=== PATIENT | male | born 1975 | race Caucasian/White ===

== ENCOUNTER 2018-11-15 08:27 | Outpatient (CLI) | payer BC, SELFPAY ==
--- NOTE | 2018-11-15 08:22 | DI.RAD_ITS ---
SYMPTOM/DIAGNOSIS: LT KNEE PAIN, H/O RT ELBOW INJURY, LT ELBOW PAIN LEFT ELBOW: Three views. No acute or healing fracture is identified. There is an enthesophyte at the olecranon. Soft tissues are unremarkable. IMPRESSION: No acute abnormality. RIGHT ELBOW: Three views. No bone or joint abnormality is identified. The soft tissues are unremarkable. IMPRESSION: No acute abnormality. LEFT KNEE: Three views. No priors. There is mild periarticular spurring in the medial femoral tibial joint space. The joint spaces are otherwise well maintained. The bones are intact and normally mineralized. IMPRESSION: Minimal degenerative changes of the left knee.
== END 2018-11-15 08:47 ==
PROVIDERS: PCP Family Medicine; Visit Provider Student in an Organized Health Care Education/Training Program
DX: M25.522 Pain in left elbow (principal); S59.902A Unspecified injury of left elbow, initial encounter; M25.562 Pain in left knee; M17.12 Unilateral primary osteoarthritis, left knee
CPT/HCPCS: 73562; 73080

== ENCOUNTER 2019-04-01 12:49 | Outpatient (REF) | payer BC, SELFPAY ==
[2019-04-01 22:22] LABS: Abs Immature Grans 0.02 k/cumm (0.0-0.09); Absolute Basophil Count 0.03 k/cumm (0.0-0.2); Absolute Eosinophil Count 0.08 k/cumm (0.0-0.7); Absolute Lymphocyte Count 2.25 k/cumm (1.2-3.4); Absolute Monocyte Count 0.54 k/cumm (0.11-0.7); Absolute Neutrophil Count 4.18 k/cumm (1.2-6.7); Basophils % 0.4; Eosinophils % 1.1; HCT 47.3 % (40.0-50.0); HGB 15.8 g/dL (13.5-17.5); Immature Grans % 0.3; Lymphocytes % 31.7; Mean Corp. HGB Concentration 33.4 g/dL (32.0-36.0); Mean Corpuscular Volume 89.8 fL (80-95); Mean Platelet Volume 10.9 fL (8.0-11.0); Monocytes % 7.6; Neutrophils % 58.9; Platelet Count 231 x1000/uL (130-400); RBC 5.27 m/cumm (4.50-6.00); RBC Distribution Width 12.8 % (11.8-14.1)
[2019-04-01 22:36] LABS: ALT 39 U/L (12-78); AST 18 U/L (15-37); Albumin 4.4 g/dL (3.4-5.0); Alkaline Phosphatase 68 U/L (46-116); Anion Gap 9.4 mmol/L (3-11); BUN 17 mg/dL (7-18); CO2 29.6 mmol/L (21.0-32.0); CREATININE 0.89 mg/dL (0.70-1.30); Chloride 103 mmol/L (98-107); Glucose 97 mg/dL (70-100); Potassium 5.2 mmol/L (3.5-5.1); Sodium 142 mmol/L (136-145); Total Protein 7.5 g/dL (6.4-8.2)
[2019-04-01 22:41] LABS: Calcium 9.7 mg/dL (8.5-10.1)
== END 2019-04-01 13:09 ==
LOC: NCHCN 12:49
PROVIDERS: PCP Family Medicine; Visit Provider Physician Assistant Medical
DX: R31.9 Hematuria, unspecified (principal)
CPT/HCPCS: 80053; 85025; 87086

== ENCOUNTER 2019-04-02 00:48 | Outpatient (CLI) | payer BC, SELFPAY ==
--- NOTE | 2019-04-02 13:50 | DI.CT_ITS ---
SYMPTOM/DIAGNOSIS: RLQ PIN, R10.[address] ABDOMEN AND PELVIS: CT scan of the abdomen and pelvis was performed following the uneventful administration of intravenous and oral contrast material. The visualized lung bases are clear. The liver is normal in size. There is no evidence of an hepatic mass. The portal, superior mesenteric and splenic veins are patent. The gallbladder is negative. There is no biliary ductal dilatation. The pancreas and peripancreatic soft tissues are unremarkable as are the spleen and adrenal glands. The kidneys show normal and symmetric enhancement. No evidence of a solid renal mass or obstruction is identified. The urinary bladder is unremarkable. The reproductive organs are unremarkable. The abdominal aorta is of normal caliber. No significant abdominal or pelvic adenopathy, ascites or pneumoperitoneum is present. There is a small fat containing left inguinal hernia. The bowel is unremarkable. There is a normal appendix present. Degenerative changes are seen in the spine. There is a small fat containing umbilical hernia. IMPRESSION: No acute findings to account for the patient's symptoms. No evidence of obstructive uropathy, appendicitis or CT evidence of gallbladder disease.
[2019-04-02] MEDS: Omnipaque 350 MG/ML 100 ML BTL IJ (13:51)
[2019-04-02] MEDS: Omnipaque 350 MG/ML 50 ML BTL PO (13:52)
[2019-04-02] MEDS: Breeza Beverage 473 ML BTL 950 ML PO (13:52)
[2019-04-02] MEDS: Normal Saline Flush 10 ML SYR IVP (13:53)
== END 2019-04-02 01:08 ==
PROVIDERS: PCP Family Medicine; Visit Provider Physician Assistant Medical
DX: R10.31 Right lower quadrant pain (principal); R31.9 Hematuria, unspecified; K42.9 Umbilical hernia without obstruction or gangrene; K40.90 Unilateral inguinal hernia, without obstruction or gangrene, not specified as recurrent
CPT/HCPCS: 74177; J3490; Q9967

== ENCOUNTER 2019-05-05 14:02 | Outpatient (REF) | payer BC, SELFPAY ==
[2019-05-05 21:52] LABS: C-Reactive Protein 0.38 mg/dL (0.0-0.3); Creatine Kinase 165 U/L (39-308)
[2019-05-05 22:19] LABS: ESR 7 mm/hr (0-15)
[2019-05-07 11:54] LABS: Lyme Ab w Rflx to Lyme Confirm Negative
[2019-05-07 15:10] LABS: ANA Interpretation Negative (NEGAT)
[2019-05-07 22:27] LABS: Anaplasma phagocytophilum Negative (Negative); B. miyamotoi PCR Negative (Negative); Babesia divergens/MO-1 Negative (Negative); Babesia duncani Negative (Negative); Babesia microti Negative (Negative); Ehrlichia chaffeensis Negative (Negative); Ehrlichia ewingii/canis Negative (Negative); Ehrlichia muris eauclairensis Negative (Negative)
== END 2019-05-05 14:22 ==
LOC: NCHCN 14:02
PROVIDERS: PCP Specialist/Technologist Athletic Trainer; Visit Provider Physician Assistant Medical
DX: M79.10 Myalgia, unspecified site (principal)
CPT/HCPCS: 82550; 85652; 87798; 86038; 86140; 86618

== ENCOUNTER 2019-05-23 01:35 | Outpatient (CLI) | payer BC, SELFPAY ==
--- NOTE | 2019-05-23 09:34 | DI.MRI_ITS ---
SYMPTOM/DIAGNOSIS: LT LUMBAR RADICULOPATHY, M54.16, LT LEG SYMPTOMS LUMBAR SPINE MRI: T 1, T 2 and STIR sagittal, T 1 and T 2 axial sequences were performed. The T 12 through L 1 through L 3-4 discs are normal in height and show no significant bulging. At L 4-5, there is moderate narrowing of the disc and endplate osteophytes which are asymmetric toward the left side. There are degenerative signal changes in the endplates. There are facet degenerative changes this level, left greater than right. The finding combine to produce severe left neural foraminal narrowing. There is no significant right neural foraminal narrowing or central canal stenosis. The L 5-S 1 level is unremarkable. The marrow signal and conus medullaris appear normal. The aorta is normal in diameter. The urinary bladder is noted to be distended. IMPRESSION: Degenerative changes and facet degenerative changes at L 4-5 which are asymmetric toward the left and cause left neural foraminal narrowing.
== END 2019-05-23 01:55 ==
PROVIDERS: PCP Specialist/Technologist Athletic Trainer; Visit Provider Physician Assistant Medical
DX: M54.16 Radiculopathy, lumbar region (principal); M51.16 Intervertebral disc disorders with radiculopathy, lumbar region; M47.26 Other spondylosis with radiculopathy, lumbar region
CPT/HCPCS: 72148

== ENCOUNTER 2019-07-24 01:38 | Outpatient (CLI) | payer BC, SELFPAY ==
--- NOTE | 2019-07-24 14:00 | DI.US_ITS ---
EXAM: US SCROTUM CLINICAL HISTORY: r/o mass lesion, N50.82 SCROTAL PAIN TECHNIQUE: Ultrasound performed using standard protocol. COMPARISON: No exams were available for comparison FINDINGS: The right testicle measures 4.2 x 2.2 x 4 0 cm. The left testicle measures 3.6 x 2.2 x 3.0 cm. No t esticular mass is seen. There is normal testicular blood flow. The epididymides appear normal and s ymmetric. There is no evidence of hydroceles. There are small bilateral varicoceles. IMPRESSION: Small bilateral varicoceles.
== END 2019-07-24 01:58 ==
PROVIDERS: PCP Specialist/Technologist Athletic Trainer; Visit Provider Urology
DX: N50.82 Scrotal pain (principal); I86.1 Scrotal varices; N50.89 Other specified disorders of the male genital organs
CPT/HCPCS: 76870

== ENCOUNTER 2019-08-04 09:57 | Day surgery (SDC) | payer BC, SELFPAY ==
[2019-08-04] VITALS (7 sets, daily range): BP systolic 130–151; BP diastolic 85–99; PULSE 73–82; RESP 15–18; TEMP 36.4–36.8; O2SAT 95–98
[2019-08-04] MEDS: Lactated Ringers 1,000 ML 80 ML IV ×2 (10:39→11:28)
--- NOTE | 2019-08-04 10:51 | W.PM.HP.N ---
Date of service: 08/04/19 Time of Service: 12:04 Assessment and Plan Assessment and plan (1) Bilateral varicoceles: Status: Acute Assessment and plan: We discussed the implications of varicoceles as well as treatment recommendations. While varicoceles on the left are quite common, varicoceles on the right are more unusual. We have already documented the absence of intra-abdominal and retroperitoneal pathology with her previous CT scan. Indications for treatment of varicocele include subfertility as well as chronic pain unresponsive to medical therapy. The patient has tried neuroleptic medications as well as anti-inflammatory medications with no significant improvement. I am not sure exactly how much of his pain is related to his varicoceles, but given the distribution of his pain, I think he would have some relief from treatment of the varicoceles. We discussed surgical approaches as well as interventional radiology approaches with sclerotic therapy. He is more interested in a surgical approach that could be done at our hospital locally. We will schedule the procedure as an outpatient under general anesthesia. History of Present Illness Chief complaint: Pelvic pain in male This is a 43-year-old gentleman who has been followed for bilateral groin, testicular and pelvic pain. He was identified as having a herniated disc in the lumbar region. He underwent lumbar laminectomy. Since that time, he has had persistent bilateral groin and testicular pain. The right side seems to be more involved, but the left side is bothersome as well. He notices intermittent swelling at times. He has had a normal CT scan of the abdomen and pelvis. He comes in after recent scrotal ultrasound. He has had no changes in his symptoms whatsoever. Review of systems: He has no fever or chills He has no chest pain or palpitations He has no nausea or vomiting Exam Const Other: He is in no current distress. He is cooperative. His vital signs are documented elsewhere in the chart His chest wall motion is normal. He is not short of breath at rest. He is awake and alert We reviewed his scrotal ultrasound on the PACS system. The testes themselves are normal with the right testis being larger than the left. He does have bilateral varicoceles documented radiographically NO OTHER CHANGES [facility] Family History (Updated 08/01/19 @ 12:15 by Shraddha Bailey RN) Other Cancer Diabetes Heart disease Social History Smoking/Tobacco Use Status: Never Drug use: Never Substance use type: does not use Current gender identity: male Do you feel safe at home: Yes Do you feel safe in your relationship?: Yes Meds Home Medications and Allergies Home Medications Medication Instructions Recorded Confirmed Type lisinopril 10 mg tablet 10 mg PO DAILY 04/08/19 08/04/19 History gabapentin 300 mg capsule 300 mg PO TID #90 cap 07/22/19 08/04/19 Rx Allergies Allergy/AdvReac Type Severity Reaction Status Date / Time No Known Allergies Allergy Verified 08/04/19 10:24 Exam Resp Effort & Inspection: normal respiratory effort Auscultation: clear to auscultation bilaterally Cardio Rate: regular rate Rhythm: regular rhythm Results Last Vital Signs Temp 36.5 C 08/04/19 10:10 Pulse 80 08/04/19 10:10 Resp 18 08/04/19 10:10 BP 136/85 08/04/19 10:10 Pulse Ox 97 08/04/19 10:10
[2019-08-04] MEDS: ceFAZolin 2 GM/50 ML BAG IVPB (12:35)
[2019-08-04] MEDS: Bupivacaine 0.25% Pres-Free 30 ML VIAL (12:58)
--- NOTE | 2019-08-04 13:50 | W.PM.DSUDISC ---
Discharge Plan Disposition Patient Disposition: HOME Condition: Stable Discharge Details Attending Provider: Eddie Montes De Oca Primary Care Provider: Jose Francisco Rice Home Meds and New Rx's Prescriptions: New hydrocodone-acetaminophen 5-325 mg tablet 1 - 2 tab PO Q6H PRN (Reason: pain) Qty: 30 RF: 0 No Action lisinopril 10 mg tablet 10 mg PO DAILY RF: 0 gabapentin 300 mg capsule 300 mg PO TID Qty: 90 RF: 0 Discharge Instructions Additional Instructions: Ice pack to scrotum while awake for next 48 hours F/U visit 1 to 2 weeks Activity:: no lifting over 10 to 20 pounds for 2 weeks Shower/Bathe:: 24 hours Diet:: As Tolerated Discharge Orders Discharge Orders: Discharge Order (Routine); Ordered 08/04/19 Ordered By: Eddie Montes De Oca DS: Diagnosis Discharge Diagnosis (1) Bilateral varicoceles: Status: Acute
[2019-08-04] MEDS: fentaNYL 100 MCG/2 ML VIAL IVP ×2 (14:00→14:15)
--- NOTE | 2019-08-04 14:54 | ROE_ITS ---
DATE OF PROCEDURE: August 04, 2019 PREOPERATIVE DIAGNOSIS: Bilateral varicoceles. 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 PROCEDURE: Bilateral varicocelectomies; excision of lipoma of the left spermatic cord. SURGEON: Eddie Montes De Oca M.D. ANESTHESIA: General. COMPLICATIONS: None. ESTIMATED BLOOD LOSS: < 100 cc's HISTORY: This is a 43-year-old gentleman who has a history of bilateral scrotal pain. On examination no specific abnormalities were identified. On ultrasound bilateral varicoceles were seen, with the right side being larger than the left. Because of his symptoms he presents for varicocelectomy. OPERATIVE REPORT: The patient was brought to the Operating Room on 08/04/19. After successful induction of general anesthesia, he was placed in the supine position. His genitalia and low abdomen were prepped and draped sterilely. A left inguinal incision was made and extended down through the subcutaneous fat until the aponeurosis of the external oblique was identified. The internal ring was identified and the spermatic cord was secured at that location. The vas deferens was isolated and swept away from the remainder of the cord structures. We then skeletonized the cord and identified multiple spermatic veins. The veins on the left side were not overly dilated, but there was a rather large lipoma of the spermatic cord. The lipoma was excised and the edges of the lipoma were over-sewn with #3-0 silk suture. The dissection was performed with loupe magnification. At the completion of the vein ligation, the testis appeared viable. The aponeurosis of the external oblique was then reapproximated with #3-0 Vicryl suture. The skin was closed with subcuticular #4-0 Vicryl. The same procedure was then performed on the patient's right side. On the right there was no evidence of a lipoma of the cord. The veins on the right were more dilated compared to the left. Again, once the ligation was completed with loupe magnification, the testis was brought back down into the right hemiscrotum. The aponeurosis of the external oblique was reapproximated with #3-0 Vicryl and the skin was closed with #4-0 Vicryl. Dermabond was applied to each of the wounds. The patient tolerated this procedure well with no complications.
[2019-08-04] MEDS: HYDROcodone 5/Acetaminophen 325 TAB PO (15:09)
== END 2019-08-04 16:00 | disposition home or self-care (01) ==
PROVIDERS: PCP Specialist/Technologist Athletic Trainer; Visit Provider Urology
PROC: (CPT 55530; principal; 2019-08-04 11:15)
DX: I86.1 Scrotal varices (principal); D17.6 Benign lipomatous neoplasm of spermatic cord; N50.82 Scrotal pain
CPT/HCPCS: 55530; NC; J0690; J1100; J1885; J2405; J3010

== ENCOUNTER 2019-08-08 14:01 | Emergency (ER) | payer BC, SELFPAY ==
[2019-08-08 14:05] VITALS: BP 153/83; PULSE 105; RESP 18; TEMP 36.4; O2SAT 99
--- NOTE | 2019-08-08 14:22 | W.ED.GENAD ---
Discharge Plan Disposition Patient Disposition: [facility] Condition: Stable Discharge Details Chief Complaint: Urinary Clinical Impression: Testicular abnormality Primary Care Provider: Jose Francisco Rice ED Provider: Javed Garg Home Meds and New Rx's Prescriptions: No Action lisinopril 10 mg tablet 10 mg PO DAILY RF: 0 gabapentin 300 mg capsule 300 mg PO TID Qty: 90 RF: 0 tramadol 50 mg tablet 50 mg PO Q6H PRN (Reason: pain) Qty: 15 RF: 0 hydrocodone-acetaminophen 5-325 mg tablet 1 - 2 tab PO Q6H PRN (Reason: pain) Qty: 30 RF: 0 Medical Decision Making 43-year-old male presents from home with his . He is postop day #4 status post bilateral varicocelectomy with excision of a small lipoma from L spermatic cord. He has had progressive pain and swelling of the scrotum in the postoperative period. Initially used hydrocodone and then was switched to tramadol with Tylenol. He has not had a fever. He has been able to urinate. Patient is given oral analgesic, referred for urinalysis and ultrasound. Urinalysis obtained with small blood, negative nitrites. Ultrasound: Right testis shows normal echotexture and normal flow on Doppler evaluation. The epididymis is unremarkable in appearance on the right. There is a right hydrocele, which has internal septations; this presumably is a post surgical finding. No associated increased vascular flow. On the left, there is no visible intratesticular vascular flow and the left testicle has an irregular contour and is somewhat hypoechoic. Findings are concerning for left testicular torsion/vascular compromise. There is marked scrotal swelling, left greater than right. There is a complex collection located superomedial to the left testis, this measures up to about 4 cm in diameter and has an appearance suspicious for abscess versus hematoma. Left epididymis is grossly unremarkable in appearance; however, there is little if any visible vascular flow in the epididymis on left. Dr. Montes De Oca paged following receipt of findings of ultrasound. IV placed and screening labs obtained. Patient has been n.p.o. since approximately 1030 this morning. Unable to reach on-call urology. Therefore approximately 4:25 PM, [facility] page for urology consult. Case discussed with Dr Boyle and patient accepted in transfer to service of Dr Vargas. Operative note from 08/04 included in paperwork. Lab Data Lab results reviewed: Yes I reviewed the patient's lab results. Labs: Laboratory Results - last 24 hr 08/08/19 14:25 Urine Color Yellow Urine Clarity Clear Urine pH 5.5 Ur Specific [place] 1.025 Urine Protein Negative Urine Ketones Negative Urine Blood Small H Urine Nitrite Negative Urine Bilirubin Negative Urine Urobilinogen 0.2 Ur Leukocyte Esterase Negative Urine RBC 0-2 Urine WBC 0-2 Ur Epithelial Cells Negative Urine Crystals Negative Urine Bacteria Rare Urine Casts Negative Urine Mucus Trace Ur Culture Indicated? No Urine Glucose Negative HPI General Mode of arrival: ambulatory. Date/Time Provider Initiated Documentation: 08/08/19 14:09. Limitations to Documentation: no limitations. Information obtained by: patient and family. History of Present Illness 43 year old M presents to the emergency department with the chief complaint of Bilateral scrotal swelling and pain postop day #4, described as moderate, Quality is described as dull and constant, and is localized to the pelvis and genitals. Patient reports no radiation. Patient started experiencing this day(s) and it has been constant. Rest improves symptom(s), Movement worsens symptoms . Patient notes other (Able to urinate); denies fever/chills. Patient did receive the following treatments prior to arrival, other (Tylenol and tramadol) Related Data Home Medications Medication Instructions Recorded Confirmed lisinopril 10 mg tablet 10 mg PO DAILY 04/08/19 08/08/19 gabapentin 300 mg capsule 300 mg PO TID #90 cap 07/22/19 08/08/19 hydrocodone-acetaminophen 1 - 2 tab PO Q6H PRN #30 tab 08/04/19 08/08/19 tramadol 50 mg tablet 50 mg PO Q6H PRN #15 tab 08/06/19 08/08/19 Previous Rx's Medication Instructions Recorded gabapentin 300 mg capsule 300 mg PO TID #90 cap 07/22/19 hydrocodone-acetaminophen 1 - 2 tab PO Q6H PRN #30 tab 08/04/19 tramadol 50 mg tablet 50 mg PO Q6H PRN #15 tab 08/06/19 Allergies Allergy/AdvReac Type Severity Reaction Status Date / Time No Known Allergies Allergy Verified 08/08/19 14:09 General Stated Complaint: Urinary JUAN: 3 Review of Systems Narrative: 6 systems reviewed and otherwise negative [facility] Medical History Bilateral varicoceles (Acute) HTN (hypertension) (Chronic) Neuropathy (Acute) Pelvic pain in male (Acute) Plantar fasciitis (Acute) Family History Other Cancer Diabetes Heart disease Social History Smoking/Tobacco Use Status: Never Drug use: Never Substance use type: does not use Current gender identity: male Do you feel safe at home: Yes Do you feel safe in your relationship?: Yes Exam Narrative Exam Narrative: GEN: awake, alert, oriented 3. Pleasant, well groomed, interactive. HEAD: Normocephalic, atraumatic ENT: Mucous membranes moist, oropharynx unremarkable, External ear exam unremarkable EYES: PERRL, EOMI NECK: Full ROM, no MARTIN, no menigismus CHEST/RESP: Nontender, clear to auscultation bilateral, no wheeze/rhonchi/rales CARDIOVASCULAR: RRR, no murmur, rub faina. 2+ Rad pulse bilateral ABDOMEN: Soft, suprapubic ecchymosis with mild tenderness but no rebound present.. Ecchymosis and swelling bilaterally of the testes. Palpable femoral pulse bilaterally. EXT: Full ROM, no edema, no rash Neuro: Grossly normal neurologic exam, conversant, interactive. Psych: Speech fluent, thoughts congruent, affect normal Course Vital Signs Vital signs: Vital Signs Temperature 36.4 C L 08/08/19 14:05 Pulse 105 H 08/08/19 14:05 Respiratory Rate 18 08/08/19 14:05 Blood Pressure 153/83 H 08/08/19 14:05 Pulse Oximetry 99 08/08/19 14:05 Temperature 36.4 C L 08/08/19 14:05 Temperature Source Skin 08/08/19 14:05 Pulse 105 H 08/08/19 14:05 Respiratory Rate 18 08/08/19 14:05 Respiratory Effort 08/08/19 14:10 Blood Pressure 153/83 H 08/08/19 14:05 Blood Pressure Position Supine 08/08/19 14:05 Pulse Oximetry 99 08/08/19 14:05 Oxygen Delivery Method Room Air 08/08/19 14:05 Oxygen Flow Rate 0 08/08/19 14:05 Pain Level 8 08/08/19 14:05
[2019-08-08] MEDS: oxyCODONE 5 mg/Acetaminophen 325 mg TAB 1 TAB PO (14:25)
[2019-08-08 14:38] LABS: Bilirubin Negative (Negative); Blood Small (Negative); Clarity Clear (Clear); Glucose Negative (Negative); Ketones Negative (Negative); Leukocyte Esterase Negative (Negative); Nitrite Negative (Negative); Specific Gravity 1.025 (1.005-1.025); Urobilinogen 0.2 EU/dL (Up TO 0.2); pH 5.5 (5-8)
[2019-08-08 14:48] LABS: Bacteria Rare HPF (Negative); C & S Indicated? No; Casts Negative LPF (Negative); Crystals Negative HPF (Negative); Epithelial Cells Negative HPF (Negative); Mucus Trace (Negative); RBC 0-2 HPF (0-2); WBC 0-2 HPF (0-5)
--- NOTE | 2019-08-08 16:01 | DI.US_ITS ---
EXAM: US SCROTUM CLINICAL HISTORY: Bilateral pain and swelling POD#4 TECHNIQUE: Scrotal ultrasound was performed according to the usual protocol. COMPARISON: US SCROTUM from 07/24/2019 FINDINGS: Patient is reportedly 4 days status post bilateral varicocele resection. Right testis shows normal echotexture and normal flow on Doppler evaluation. The epididymis is unrem arkable in appearance on the right. There is a right hydrocele, which has internal septations; this presumably is a post surgical finding. No associated increased vascular flow. On the left, there is no visible intratesticular vascular flow and the left testicle has an irregular contour and is somewhat hypoechoic. Findings are concerning for left testicular torsion/vascular co mpromise. There is marked scrotal swelling, left greater than right. There is a complex collection located superomedial to the left testis, this measures up to about 4 cm in diameter and has an appearance suspicious for abscess versus hematoma. Left epididymis is grossl y unremarkable in appearance; however, there is little if any visible vascular flow in the epididymis on left. IMPRESSION: Findings concerning for left testicular torsion/vascular compromise in a patient who is 4 days post b ilateral varicocele resection. Additionally, there is an approximately 4 cm in diameter paratesticul ar complex collection on the left, hematoma versus abscess. Findings were reported to Dr. Garg in the ED.
[2019-08-08] MEDS: Lactated Ringers 1,000 ML 125 ML IV (16:26)
[2019-08-08 16:34] LABS: Abs Immature Grans 0.06 k/cumm (0.0-0.09); Absolute Basophil Count 0.04 k/cumm (0.0-0.2); Absolute Lymphocyte Count 3.14 k/cumm (1.2-3.4); Absolute Monocyte Count 0.94 k/cumm (0.11-0.7); Absolute Neutrophil Count 8.04 k/cumm (1.2-6.7); Basophils % 0.3; Eosinophils % 1.6; HCT 41.4 % (40.0-50.0); HGB 14.4 g/dL (13.5-17.5); Immature Grans % 0.5; Lymphocytes % 25.3; Mean Corp. HGB Concentration 34.8 g/dL (32.0-36.0); Mean Corpuscular Hemoglobin 30.9 pg (27.0-33.0); Mean Corpuscular Volume 88.8 fL (80-95); Mean Platelet Volume 9.4 fL (8.0-11.0); Monocytes % 7.6; Neutrophils % 64.7; Platelet Count 253 x1000/uL (130-400); RBC 4.66 m/cumm (4.50-6.00); RBC Distribution Width 12.4 % (11.8-14.1); White Blood Cell Count 12.42 k/cumm (4.4-10.8)
[2019-08-08 16:44] LABS: ALT 33 U/L (16-63); AST 20 U/L (15-37); Albumin 3.6 g/dL (3.4-5.0); Alkaline Phosphatase 69 U/L (46-116); Anion Gap 9.1 mmol/L (3-11); BUN 14 mg/dL (7-18); Bilirubin, Total 0.6 mg/dL (0.2-1.0); CO2 29.9 mmol/L (21.0-32.0); CREATININE 0.97 mg/dL (0.70-1.30); Calcium 8.8 mg/dL (8.5-10.1); Chloride 101 mmol/L (98-107); Glucose 100 mg/dL (74-106); Potassium 4.1 mmol/L (3.5-5.1); Sodium 140 mmol/L (136-145); Total Protein 7.3 g/dL (6.4-8.2)
[2019-08-08 16:49] VITALS: BP 133/72; PULSE 93; TEMP 36.8; O2SAT 99
== END 2019-08-08 17:01 | disposition short-term general hospital (02) ==
PROVIDERS: Emergency Provider Emergency Medicine; PCP Specialist/Technologist Athletic Trainer
DX: N50.82 Scrotal pain (principal); G89.18 Other acute postprocedural pain; N50.89 Other specified disorders of the male genital organs; R93.812 Abnormal radiologic findings on diagnostic imaging of left testicle; Y83.8 Other surgical procedures as the cause of abnormal reaction of the patient, or of later complication, without mention of misadventure at the time of the procedure; I86.1 Scrotal varices
CPT/HCPCS: 36415; 80053; 96360; 99285; 76870; 81003; 81015; 85025; 99284

== ENCOUNTER 2019-08-13 09:58 | Outpatient (CLI) | payer BC, SELFPAY ==
--- NOTE | 2019-08-13 10:40 | DI.US_ITS ---
EXAM: US SCROTUM CLINICAL HISTORY: recent loss of testicle; continued scrotal pain, N50.82,s/p orchiectomy TECHNIQUE: Ultrasound performed using standard protocol. COMPARISON: US SCROTUM from 07/24/2019 US SCROTUM from 08/08/2019 FINDINGS: Patient is now status post left orchiectomy. There is a 5.7 x 4.2 x 5.1 centimeter fluid collection in the scrotal sac with septations, presumably postsurgical. Scrotal skin thickening remains presen t but is decreased when compared with the previous exam. The right testicle is normal in size and sh ows normal blood flow. The right epididymis is unremarkable. There is a normal quantity of fluid lopez rrounding the right testicle. No varicocele is seen. IMPRESSION: Scrotal fluid collection is presumably postsurgical. The right testicle and epididymis appear norm al.
== END 2019-08-13 10:18 ==
PROVIDERS: PCP Specialist/Technologist Athletic Trainer; Visit Provider Nurse Practitioner Gerontology
DX: N50.82 Scrotal pain (principal); Z90.79 Acquired absence of other genital organ(s); N43.2 Other hydrocele
CPT/HCPCS: 76870

== ENCOUNTER 2019-09-05 09:01 | Outpatient (CLI) | payer BC, SELFPAY ==
--- NOTE | 2019-09-05 09:30 | DI.US_ITS ---
EXAM: US SCROTUM CLINICAL HISTORY: r/o abcess N50.82 SCROTAL PAIN TECHNIQUE: Ultrasound performed using standard protocol. COMPARISON: US SCROTUM from 08/13/2019 FINDINGS: The patient has had a recent orchiectomy, approximately 4 weeks ago, of the left testis. Left scrota l fluid collection was measured at 57 x 51 x 42 millimeters in diameter on prior ultrasound of [address] On today's examination this measures about 44 x 32 x 47 millimeters and shows increased intr a lesional echogenicity which is a nonspecific finding. Mildly increased flow is seen in the tissues surrounding the collection. The findings may represent resolving hematoma, infected hematoma or abs cess not excluded on the basis of this examination. Right hydrocele is again noted. Right epididymis is unremarkable. IMPRESSION: Left scrotal fluid collection, presumably post surgical, infected hematoma or abscess not excluded on the basis of this examination.
== END 2019-09-05 09:21 ==
PROVIDERS: PCP Specialist/Technologist Athletic Trainer; Visit Provider Urology
DX: N50.82 Scrotal pain (principal); N43.3 Hydrocele, unspecified; Z90.79 Acquired absence of other genital organ(s)
CPT/HCPCS: 76870

== ENCOUNTER 2019-09-05 13:00 | Observation (INO) | payer BC, SELFPAY ==
[2019-09-05 11:40] VITALS: BP 138/96; PULSE 89; RESP 18; TEMP 36.6; O2SAT 97
--- NOTE | 2019-09-05 11:57 | W.PM.HP.N ---
Date of service: 09/05/19 Time of Service: 11:57 Assessment and Plan Assessment and plan (1) Scrotal abscess: Status: Acute Assessment and plan: We had discussed using parenteral antibiotics versus surgical exploration. Since his symptoms have progressed even while on antibiotics, he would prefer the surgical exploration. We will plan on keeping him in the hospital overnight for IV antibiotics and wound care. History of Present Illness History of Present Illness Chief Complaint: Scrotal abcess Narrative: This is a 44-year-old gentleman who has a history of bilateral scrotal pain. He underwent bilateral varicocelectomy. He then developed an ischemic left testis and underwent left orchiectomy. Since that time he is had some persistent swelling which initially improved. Over the past week, he has had increased and swelling swelling and redness. He has not responded to oral antibiotics. A scrotal ultrasound from today showed persistent collection that was not definitive for an abscess but an abscess was not totally ruled out. He did have some increased erythema in the tissue surrounding the left scrotal collection. We discussed whether to switch to IV antibiotics or to debride the area. The patient has elected to move ahead with debridement. We will keep him in the hospital overnight for IV antibiotics and wound care. If purulent material is identified, we will plan on leaving the wound open with a drain. Review of Systems Narrative: No fevers or chills No vision change or dysphasia No diabetes or thyroid No shortness of breath, cough or hemoptysis No chest pain or palpitations No nausea, vomiting, hepatitis, ulcers, jaundice, diarrhea or constipation No seizures, strokes or peripheral neuropathy No bleeding disorders or anemia No gout PFSH Social History Smoking/Tobacco Use Status: Never Drug use: Never Substance use type: does not use Current gender identity: male Do you feel safe at home: Yes Do you feel safe in your relationship?: Yes Meds Home Medications and Allergies Home Medications Medication Instructions Recorded Confirmed Type lisinopril 10 mg tablet 10 mg PO DAILY 04/08/19 09/05/19 History gabapentin 300 mg capsule 300 mg PO TID #90 cap 07/22/19 09/05/19 Rx tramadol 50 mg tablet 50 mg PO Q6H PRN #15 tab 08/15/19 09/05/19 Rx hydrocodone 5 mg-acetaminophen 325 1 - 2 tab PO Q6H PRN #30 tab MDD 8 08/26/19 09/05/19 Rx mg tablet ciprofloxacin HCl 500 mg tablet 500 mg PO BID #14 tab 09/04/19 09/05/19 Rx Allergies Allergy/AdvReac Type Severity Reaction Status Date / Time No Known Allergies Allergy Verified 09/05/19 11:38 Exam Narrative Exam Narrative: He looks uncomfortable but does not appear septic or toxic His vital signs are documented elsewhere His lungs are clear Cardiac exam shows a regular rate and rhythm His abdomen is obese but soft. The scrotum is enlarged bilaterally but is more red and fluctuant on the left side. There are no open areas on the scrotum but a small shallow opening in the right inguinal incision He is awake and alert
[2019-09-05] MEDS: Lactated Ringers 1,000 ML 80 ML IV (12:20)
[2019-09-05] MEDS: cefTRIAXone 1 GM/50 ML BAG IVPB (12:23)
[2019-09-05] MEDS: Bupivacaine 0.5% Pres-Free 30 ML VIAL (12:54)
[2019-09-05] MEDS: HYDROcodone 5/Acetaminophen 325 TAB PO ×2 (13:48→18:46)
[2019-09-05] MEDS: Gabapentin 300 MG CAP PO ×2 (13:49→20:46)
[2019-09-05] MEDS: Normal Saline Flush 10 ML SYR IV ×2 (13:53→17:48)
--- NOTE | 2019-09-05 13:54 | ROE_ITS ---
DATE OF PROCEDURE: September 05, 2019 PREOPERATIVE DIAGNOSIS: Scrotal abscess. POSTOPERATIVE DIAGNOSIS: Same. PROCEDURE: Debridement of scrotal abscess. SURGEON: Eddie Montes De Oca M.D. ANESTHESIA: General. COMPLICATIONS: None. SPECIMENS: Cultures for aerobic and anaerobic organisms. FINDINGS: Purulent material in left hemiscrotum. HISTORY: This is a 44-year-old gentleman who had previously undergone bilateral varicocelectomy for scrotal pain. 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 He's had persistent pain and swelling since the surgeries. Initially he improved gradually, but over the past week he has had increased redness and swelling. He has not responded to oral antibiotics. He did have a scrotal ultrasound today, which showed some increased erythema around the collection of material within the left hemiscrotum. The findings were not definitive for an abscess, but with his worsening symptoms, we went ahead and planned for drainage. OPERATIVE REPORT: The patient was brought to the operating room on 09/05/19. His scrotum was preppe d and draped. His previous midline incision was opened and immediately purulent material was encount ered. We obtained cultures for aerobes and anaerobes. Additional blood product and purulent materia l was encountered and evacuated. Palpation of the left hemiscrotum showed no solid mass present. We then irrigated the hemiscrotum us ing half-strength Betadine. A quarter-inch [place] drain was then placed within the wound and the sk in was closed loosely using #2-0 chromic sutures. A fluff dressing was applied, followed by a scrota l support. Before closing the wound, we were able to palpate the right testis, which felt normal. No concerning collection was found on the right side. The patient tolerated this procedure well. There were no complications. We will plan on keeping him hospitalized overnight for IV antibiotics and dressing changes.
[2019-09-05] MEDS: Lactated Ringers 1,000 ML 125 ML IV (13:55)
--- NOTE | 2019-09-05 15:33 | NUR.NOTE ---
Nursing Note: Patient arrived to med/surg via a stretcher and admitted to room 214 at 1323
[2019-09-05 15:43] VITALS: BP 117/87; PULSE 84; RESP 17; TEMP 36.4; O2SAT 96
[2019-09-05] MEDS: Normal Saline 1,000 ML 125 ML IV (16:23)
[2019-09-05] MEDS: PIPERACILLIN/TAZO 3.375 GM in Normal Saline 50 ML IVPB ×2 (16:24→22:00)
[2019-09-05] MEDS: Ketorolac 15 MG/ML VIAL IM ×2 (17:47→23:53)
[2019-09-05 21:55] VITALS: BP 128/74; PULSE 85; RESP 17; TEMP 36.5; O2SAT 95
[2019-09-06] MEDS: Normal Saline 1,000 ML 125 ML IV (01:03)
[2019-09-06 03:10] VITALS: TEMP 36.1
[2019-09-06] MEDS: PIPERACILLIN/TAZO 3.375 GM in Normal Saline 50 ML IVPB (04:21)
[2019-09-06] MEDS: Ketorolac 15 MG/ML VIAL IM (05:24)
[2019-09-06 07:40] VITALS: BP 139/83; PULSE 70; RESP 16; TEMP 36.7; O2SAT 97
--- NOTE | 2019-09-06 08:14 | DSE_ITS ---
Date of service: 09/06/19 Time of Service: 08:14 DS: Diagnosis Discharge Diagnosis (1) Scrotal abscess: Status: Acute Discharge Plan Disposition Patient Disposition: HOME Condition: Improving Discharge Details Reason For Visit: SCROTAL ABCESS Admit Date/Time: 09/05/19 13:00 Admit Provider: Eddie Montes De Oca Attending Provider: Eddie Montes De Oca Primary Care Provider: Jose Francisco Rice Hospital Course Hospital Course: The patient was brought to the OR and his left sided scrotal abcess was drained. Cultures were obtained. Initial gram stains show gram positives. A swati drain was left in place. He was hospitalized overnight for wound care and IV antibiotics. His amount of scrotal drainage stabilized and he remained afebrile. He will be discharged after 24 hours of IV antibiotic coverage (Ceftriaxone preop followed by Jose) Home Meds and New Rx's Prescriptions: New dicloxacillin 500 mg capsule 500 mg PO QID Qty: 28 RF: 0 hydrocodone-acetaminophen 5-325 mg tablet 1 - 2 tab PO Q4H PRN (Reason: pain) Qty: 30 RF: 0 Continued lisinopril 10 mg tablet 10 mg PO DAILY RF: 0 gabapentin 300 mg capsule 300 mg PO TID Qty: 90 RF: 0 hydrocodone-acetaminophen 5-325 mg tablet 1 - 2 tab PO Q6H MDD 8 PRN (Reason: pain) Qty: 30 RF: 0 tramadol 50 mg tablet 50 mg PO Q6H PRN (Reason: pain) Qty: 15 RF: 0 Discontinued ciprofloxacin HCl 500 mg tablet 500 mg PO BID Qty: 14 RF: 0 Discharge Instructions Additional Instructions: F/U Sunday for wound check (have pt call early Sunday AM to arrange time) Leave drain in place at time of discharge - it is not sewn in so pt may expect that it may come out on its own and he should be reassured that is not a problem if it does come out before Sunday (otherwise we will take it out Sunday in office) Please send pt home with dressing change supplies (fluffs and mesh shorts) OK for pt to shower as long as he does not scrub scrotal area Based on gram stain, pt will discontinue the Cipro I had previously given and start Dicloxacillin 500 mg PO QID for 7 days Script for Dicloxacillin (and refill of Hydrocodone) sent to [facility] electronically Activity:: please encourage pt to ambulate to allow any residual fluid to drain Equipment/Supplies:: Fluff dressings and mesh shorts Diet:: As Tolerated Discharge Orders Discharge Orders: Discharge Order (Routine); Ordered 09/06/19 Ordered By: Eddie Montes De Oca Discharge Data Discharge Comment: discharge after final IV antibiotic dose today DS: Summary Status at Discharge Functional status at discharge: independent ambulation Overall status at discharge: patient is not back to baseline Mental Status: mental status grossly normal Speech and Movement: speech and movement normal Mood: congruent mood Affect: normal affect Exam Narrative Exam Narrative: At the time of discharge: He does not appear septic or toxic His vital signs are documented elsewhere His scrotum shows decreased erythema and pain. There is some dark older blood product that can be expressed by pusshing on the abcess cavity latterally, but mani bright red blood is noted. He is awake and alert Psych Mental Status: mental status grossly normal Speech and Movement: speech and movement normal Mood: congruent mood Affect: normal affect DS: Data Vitals/I&O Vitals and I&O: Vital Signs Temperature 36.1 C L 09/06/19 03:10 Temperature Source Skin 09/06/19 03:10 Pulse 85 09/05/19 21:55 Pulse Rhythm Regular 09/06/19 02:00 Respiratory Rate 17 09/05/19 21:55 Respiratory Effort Non-Labored 09/06/19 02:00 Respiratory Depth Normal 09/06/19 02:00 Respiratory Pattern Normal 09/06/19 02:00 Blood Pressure 128/74 09/05/19 21:55 Pulse Oximetry 95 09/05/19 21:55 Oxygen Delivery Method Room Air 09/05/19 21:55 Oxygen Flow Rate 0 09/05/19 21:55 Pain Level 6 09/06/19 05:24 Comment 09/05/19 11:40 Intake & Output 09/05/19 09/05/19 09/06/19 11:59 23:59 11:59 Intake Total 1999 / 1999 2300 / 2300 Output Total 900 / 900 475 / 475 Balance 1100 / 1100 1825 / 1825 Weight 132.7 kg Intake: IV 1460 / 1460 0 / 0 Oral 540 / 540 250 / 250 Output: Urine 900 / 900 475 / 475 Other: Urine Color Light Mary Yellow Urine Appearance Clear Clear Cloudy Data Completed and Pending Labs on day of discharge: 09/05/19 12:45 Scrotum Anaerobic Culture - Pending Preliminary micro results at discharge 09/05/19 12:45 Surgical Culture - Preliminary Scrotum Gram Positive Stephani 09/05/19 12:45 Anaerobic Culture - Pending Scrotum [facility] Medical History Bilateral varicoceles (Acute) HTN (hypertension) (Chronic) Neuropathy (Acute) Pelvic pain in male (Acute) Plantar fasciitis (Acute) Surgical History H/O vasectomy (Acute) History of back surgery (Acute) History of tonsillectomy (Chronic) adnoids S/P surgical removal of pilonidal cyst (Acute) Family History Other Cancer Diabetes Heart disease Social History Smoking/Tobacco Use Status: Never Drug use: Never Substance use type: does not use Current gender identity: male Do you feel safe at home: Yes Do you feel safe in your relationship?: Yes
--- NOTE | 2019-09-06 08:36 | W.PM.PROGNOT ---
Date of Service Date of service: 09/06/19 Time of Service: 08:36 Assessment and Plan Assessment and plan (1) Scrotal abscess: Status: Acute Assessment and plan: I think it is safe to discharge the patient but I will switch his outpatient antibiotic coverage from Cipro to Dicoxacillin. The final culture results should be back by Sunday. I will leave the swati drain in place when he id discharged and encourage pt to ambulate (to make sure there are no dependant areas of fluid that develop). The drain is not stitched in, so it may come out as he becomes more active. If it does not come out on its own, we will be prepared to remove the drain in our office Sunday. Subjective Subjective Interval history since last seen: No fevers or chills overnight. Not much drainage from incision, but has not been up and out of bed as of yet. Exam Const General: cooperative and comfortable Other: Markedly decreased erythema on upper scrotum and suprapubic area Minimal fluid expressed on palpation of abcess compartment laterally (with decreased pain expressed by patient) Objective Objective Clinical Data: Vital Signs Temperature 36.1 C L 09/06/19 03:10 Temperature Source Skin 09/06/19 03:10 Pulse 85 09/05/19 21:55 Pulse Rhythm Regular 09/06/19 02:00 Respiratory Rate 17 09/05/19 21:55 Respiratory Effort Non-Labored 09/06/19 02:00 Respiratory Depth Normal 09/06/19 02:00 Respiratory Pattern Normal 09/06/19 02:00 Blood Pressure 128/74 09/05/19 21:55 Pulse Oximetry 95 09/05/19 21:55 Oxygen Delivery Method Room Air 09/05/19 21:55 Oxygen Flow Rate 0 09/05/19 21:55 Pain Level 6 09/06/19 05:24 Comment 09/05/19 11:40 Intake & Output 09/05/19 09/05/19 09/06/19 11:59 23:59 11:59 Intake Total 1999 / 1999 2300 / 2300 Output Total 900 / 900 475 / 475 Balance 1100 / 1100 1825 / 1825 Weight 132.7 kg Intake: IV 1460 / 1460 2050 / 2050 Oral 540 / 540 250 / 250 Output: Urine 900 / 900 475 / 475 Other: Urine Color Light Mary Yellow Urine Appearance Clear Clear Cloudy
[2019-09-06] MEDS: Gabapentin 300 MG CAP PO (09:06)
[2019-09-06] MEDS: Lisinopril 10 MG TAB PO (09:06)
== END 2019-09-06 09:52 | disposition home or self-care (01) ==
PROVIDERS: Admitting Provider Urology; PCP Specialist/Technologist Athletic Trainer; Visit Provider Urology
PROC: 0V9500Z Drainage of Scrotum with Drainage Device, Open Approach (ICD-10-PCS; CPT 54700; principal; 2019-09-05 12:15)
DX: T81.40XA Infection following a procedure, unspecified, initial encounter (principal); N49.2 Inflammatory disorders of scrotum; B95.2 Enterococcus as the cause of diseases classified elsewhere; Z90.79 Acquired absence of other genital organ(s)
CPT/HCPCS: 54700; 87077; NC; 87070; 87075; 87186; 87205; G0378; J0696; J1100; J1885; J2250; J2405; J2543; J3010

== ENCOUNTER 2019-09-08 09:42 | Outpatient (CLI) | payer BC, SELFPAY ==
--- NOTE | 2019-09-08 13:50 | DI.US_ITS ---
EXAM: US SCROTUM CLINICAL HISTORY: PT LOST L TESTICLE D/T EDEMA, HAVING R. EDEMA, SWELLING, SCROTAL PAIN, SCROTAL ABS CESS, N50.89, N50.82, N49.2 TECHNIQUE: Ultrasound performed using standard protocol. COMPARISON: US SCROTUM from 09/05/2019 FINDINGS: The right testicle measures 3.9 x 2.5 x 2.8 cm. There is blood flow to the right testicle. No evide nce of torsion. No right testicular masses identified. Right epididymis is unremarkable. There is again seen a right hydrocele, which appears stable. The patient is status post left orchiectomy. The previously noted fluid collection has been drained. No discrete fluid collection is identified. There is edema seen in the soft tissues of the left sc rotum. IMPRESSION: 1. Interval drainage of the left fluid collection. No discernible residual fluid collection is ident ified on the left. 2. Persistent right hydrocele.
== END 2019-09-08 10:02 ==
PROVIDERS: PCP Specialist/Technologist Athletic Trainer; Visit Provider Nurse Practitioner Gerontology
DX: N49.2 Inflammatory disorders of scrotum (principal); R50.82 Postprocedural fever; N50.89 Other specified disorders of the male genital organs; N43.3 Hydrocele, unspecified
CPT/HCPCS: 76870

== ENCOUNTER 2019-10-17 12:25 | Outpatient (CLI) | payer BC, SELFPAY ==
--- NOTE | 2019-10-17 12:12 | DI.RAD_ITS ---
EXAM: XR CHEST 2V PA LATERAL XR CHEST 2V PA LATERAL CLINICAL HISTORY: SOB, R06.02 SOB, R06.02 TECHNIQUE: 2D digital imaging was performed. COMPARISON: CHEST 2 VIEWS PA,LAT from 11/13/2009 FINDINGS: The heart is not enlarged. The lungs are clear and well expanded. No pleural effusion seen. Mediastin al contours appear intact. IMPRESSION: Normal chest
== END 2019-10-17 12:45 ==
PROVIDERS: PCP Specialist/Technologist Athletic Trainer; Visit Provider Physician Assistant Medical
DX: R06.02 Shortness of breath (principal)
CPT/HCPCS: 71046

== ENCOUNTER 2019-11-03 16:05 | Outpatient (CLI) | payer BC, SELFPAY ==
--- NOTE | 2019-11-03 | DI.US_ITS ---
EXAM: US SCROTUM CLINICAL HISTORY: HYDROCELE RT N43.3 TECHNIQUE: Ultrasound performed using standard protocol. COMPARISON: US SCROTUM from 09/08/2019 FINDINGS: Scrotal ultrasound was performed according to the usual protocol. The patient has had prior left orc hiectomy and drainage of a right hydrocele. Most recent prior study of September 08, 2019 showed unco mplicated right hydrocele. On today's examination, right testis is unremarkable in appearance and sh ows normal vascular flow. Epididymis grossly unremarkable. There is a complex predominantly cystic mass occupying the space of the prior hydrocele measuring up to about 4.7 x 4.6 x 3.0 cm in diameter consistent with abscess. No internal vascular flow but there is increased vascular flow adjacent to the presumed abscess. IMPRESSION: Complex intrascrotal extratesticular fluid collection, suspect abscess. DATA REPOSITORY:
== END 2019-11-03 16:25 ==
PROVIDERS: PCP Specialist/Technologist Athletic Trainer; Visit Provider Family Medicine
DX: N43.3 Hydrocele, unspecified (principal); N45.4 Abscess of epididymis or testis
CPT/HCPCS: 76870

== ENCOUNTER 2019-11-03 20:22 | Outpatient (REF) | payer BC, SELFPAY ==
[2019-11-03 20:03] LABS: Abs Immature Grans 0.04 k/cumm (0.0-0.09); Absolute Basophil Count 0.04 k/cumm (0.0-0.2); Absolute Eosinophil Count 0.15 k/cumm (0.0-0.7); Absolute Lymphocyte Count 2.88 k/cumm (1.2-3.4); Absolute Monocyte Count 0.65 k/cumm (0.11-0.7); Absolute Neutrophil Count 5.75 k/cumm (1.2-6.7); Basophils % 0.4; Eosinophils % 1.6; HGB 15.1 g/dL (13.5-17.5); Immature Grans % 0.4 %; Lymphocytes % 30.3; Mean Corp. HGB Concentration 34.3 g/dL (32.0-36.0); Mean Corpuscular Hemoglobin 30.1 pg (27.0-33.0); Mean Corpuscular Volume 87.6 fL (80-95); Mean Platelet Volume 10.4 fL (8.0-11.0); Monocytes % 6.8; Neutrophils % 60.5; Platelet Count 279 x1000/uL (130-400); RBC 5.02 m/cumm (4.50-6.00); RBC Distribution Width 12.9 % (11.8-14.1); White Blood Cell Count 9.51 k/cumm (4.4-10.8)
[2019-11-04 17:04] LABS: CRP, High Sensitivity 5.09 mg/L (See Note)
== END 2019-11-03 20:42 ==
LOC: NCHCN 20:22
PROVIDERS: PCP Specialist/Technologist Athletic Trainer; Visit Provider Specialist/Technologist Athletic Trainer
DX: N43.3 Hydrocele, unspecified (principal); T81.30XS Disruption of wound, unspecified, sequela
CPT/HCPCS: 86141; 87077; 85025; 87070; 87205

== ENCOUNTER 2019-12-26 09:39 | Outpatient (REF) | payer BC, SELFPAY ==
[2019-12-31 12:26] LABS: Testosterone, Free 4.68 ng/dL (4.46-17.1); Testosterone, Total 167 ng/dL (240-950)
== END 2019-12-26 09:59 ==
LOC: NCHCN 09:39
PROVIDERS: PCP Specialist/Technologist Athletic Trainer; Visit Provider Physician Assistant Medical
DX: E29.1 Testicular hypofunction (principal); Z90.79 Acquired absence of other genital organ(s)
CPT/HCPCS: 84402; 84403

== ENCOUNTER 2020-02-25 12:53 | Outpatient (REF) | payer BC, SELFPAY ==
[2020-02-25 19:33] LABS: Hemoglobin A1C 5.5 % (3.8-5.6)
[2020-02-25 19:37] LABS: ALT 49 U/L (16-63); AST 34 U/L (15-37); Alkaline Phosphatase 70 U/L (46-116); Anion Gap 8.6 mmol/L (3-11); BUN 16 mg/dL (7-18); Bilirubin, Total 0.8 mg/dL (0.2-1.0); CO2 26.4 mmol/L (21.0-32.0); CREATININE 1.15 mg/dL (0.70-1.30); Calcium 8.8 mg/dL (8.5-10.1); Calculated LDL 86 mg/dL (<100); Chloride 102 mmol/L (98-107); Cholesterol 183 mg/dL (<200); Glucose 92 mg/dL (74-106); HDL Cholesterol 58 mg/dL (40-60); Potassium 4.4 mmol/L (3.5-5.1); Sodium 137 mmol/L (136-145); Total Protein 7.2 g/dL (6.4-8.2); Triglyceride 195 mg/dL (<150)
[2020-03-02 15:35] LABS: Testosterone, Free 17.3 ng/dL (4.46-17.1); Testosterone, Total 597 ng/dL (240-950)
== END 2020-02-25 13:13 ==
LOC: NCHCN 12:53
PROVIDERS: PCP Specialist/Technologist Athletic Trainer; Visit Provider Physician Assistant Medical
DX: R73.09 Other abnormal glucose (principal); I10 Essential (primary) hypertension; E29.1 Testicular hypofunction
CPT/HCPCS: 80053; 80061; 84402; 84403; 83036

== ENCOUNTER 2020-04-12 09:49 | Outpatient (REF) | payer BC, SELFPAY ==
[2020-04-12 19:26] LABS: HCT 49.2 % (40.0-50.0); HGB 16.4 g/dL (13.5-17.5)
[2020-04-12 20:05] LABS: TSH (W/Ref FT4) 0.98 uIU/mL (0.36-3.74)
[2020-04-14 09:55] LABS: PSA, Screening 0.2 ng/mL (0.0-2.5)
[2020-04-15 15:13] LABS: Testosterone, Total 656 ng/dL (240-950)
== END 2020-04-12 10:09 ==
LOC: NCHCN 09:49
PROVIDERS: PCP Specialist/Technologist Athletic Trainer; Visit Provider Physician Assistant Medical
DX: R73.09 Other abnormal glucose (principal); E29.1 Testicular hypofunction; F41.9 Anxiety disorder, unspecified; K21.9 Gastro-esophageal reflux disease without esophagitis; I10 Essential (primary) hypertension
CPT/HCPCS: 84153; 84402; 84403; 84443; 85014; 85018

== ENCOUNTER 2020-06-10 18:39 | Outpatient (CLI) | payer BC, SELFPAY ==
--- NOTE | 2020-06-09 | DI.RAD_ITS ---
EXAM: XR KNEE RT 3V AP,LAT,HILTON CLINICAL HISTORY: KNEE JOINT PAIN RT M25.561. TECHNIQUE: 2D digital imaging was performed. COMPARISON: No exams were available for comparison FINDINGS: BONES: No acute fracture is present. No bony destructive lesion is seen. JOINTS: The knee is normally aligned. No joint effusion is seen. SOFT TISSUE: Normal. IMPRESSION: Unremarkable radiographs of the right knee. DATA REPOSITORY: RADIATION DOSE DELIVERED:
== END 2020-06-10 18:59 ==
PROVIDERS: PCP Specialist/Technologist Athletic Trainer; Visit Provider Physician Assistant Medical
DX: M25.561 Pain in right knee (principal)
CPT/HCPCS: 73562

== ENCOUNTER 2020-07-30 04:11 | Outpatient (CLI) | payer BC, SELFPAY ==
--- NOTE | 2020-07-30 08:35 | DI.MRI_ITS ---
EXAM: MR LOWER JOINT RT WO CLINICAL HISTORY: R KNEE PAIN,INTERNAL DERANGEMENT RT KNEE,M23.91. TECHNIQUE: Multiplanar multisequence MRI was performed. COMPARISON: CR XR KNEE RT 3V AP,LAT,HILTON from 06/09/2020 FINDINGS: The examination is limited due to patient motion artifact. BONES: There is no fracture or contusion pattern. JOINTS: Articular cartilage is unremarkable. There is a small joint effusion. TENDONS: Extensor mechanism: Unremarkable. Medial retinaculum: Unremarkable. Lateral retinaculum: Unremarkable. Popliteus: Unremarkable. MUSCLES: Unremarkable. MENISCI: There is linear hyperintense signal seen in the body of the medial meniscus suspicious for t ear. There is vertical signal seen in the body of the lateral meniscus which may represent a tear. SOFT TISSUES: There is edema seen in the soft tissues around the knee with sparing posteriorly. LIGAMENTS: Anterior Cruciate: Unremarkable. Posterior Cruciate: Unremarkable. Medial Collateral:There is a small amount of fluid seen around the medial collateral ligament which m ay represent a grade 1 sprain. Lateral Collateral: Unremarkable. OTHER: IMPRESSION: 1. Hyperintense signal seen in the bodies of both the medial and lateral menisci suspicious for tears . 2. Sprain of the medial collateral ligament. 3. Small joint effusion. 4. Mild soft tissue edema around the knee. DATA REPOSITORY:
--- NOTE | 2020-07-30 09:05 | DI.MRI_ITS ---
EXAM: MR LOWER JOINT LT WO CLINICAL HISTORY: L KNEE PAIN,INTERNAL DERANGEMENT,M23.92. TECHNIQUE: Multiplanar multisequence MRI was performed. COMPARISON: CR XR knee LT 2V AP,lat from 11/15/2018 FINDINGS: BONES: There is no fracture or contusion pattern. JOINTS: Articular cartilage is unremarkable. There is a moderate joint effusion. TENDONS: Extensor mechanism: Unremarkable. Medial retinaculum: Unremarkable. Lateral retinaculum: Unremarkable. Popliteus: Unremarkable. MUSCLES: Unremarkable. MENISCI: There is increased signal seen in the posterior horn of the medial meniscus which appears to contact the inferior articular surface suspicious for tear. The lateral meniscus is unremarkable. SOFT TISSUES: There is edema seen in the soft tissues around the knee. No focal fluid collection is present. LIGAMENTS: Anterior Cruciate: Unremarkable. Posterior Cruciate: Unremarkable. Medial Collateral:There is fluid around the medial collateral ligament consistent with a sprain. Lateral Collateral: Unremarkable. OTHER: IMPRESSION: 1. Findings suspicious for tear of the posterior horn of the medial meniscus. 2. Medial collateral ligament sprain. 3. Moderate joint effusion. DATA REPOSITORY:
== END 2020-07-30 04:31 ==
PROVIDERS: PCP Physician Assistant Medical; Visit Provider Student in an Organized Health Care Education/Training Program
DX: S83.412A Sprain of medial collateral ligament of left knee, initial encounter (principal); M25.462 Effusion, left knee; S83.411A Sprain of medial collateral ligament of right knee, initial encounter; M25.461 Effusion, right knee; R60.0 Localized edema
CPT/HCPCS: 73721

== ENCOUNTER 2020-08-27 03:18 | Outpatient (CLI) | payer BC, SELFPAY ==
[2020-08-30 21:28] LABS: COVID-19 RT-PCR Result NEGATIVE (Negative)
== END 2020-08-27 03:38 ==
PROVIDERS: PCP Physician Assistant Medical; Visit Provider Student in an Organized Health Care Education/Training Program
DX: Z11.59 Encounter for screening for other viral diseases (principal); Z01.818 Encounter for other preprocedural examination
CPT/HCPCS: U0003

== ENCOUNTER 2020-09-01 11:17 | Day surgery (SDC) | payer BC, SELFPAY ==
--- NOTE | 2020-09-01 08:54 | W.PM.DSUDISC ---
Documented by User: Brenda Ennis 09/01/20 08:59 Discharge Plan Disposition Patient Disposition: HOME Condition: Good Discharge Details Reason For Visit: Left knee medial meniscus tear Attending Provider: Rahul Osorio Primary Care Provider: Pratima Fregoso Home Meds and New Rx's Prescriptions: New hydrocodone-acetaminophen 5-325 mg tablet 1 tab PO Q6H PRN (Reason: severe pain) Qty: 6 RF: 0 acetaminophen 500 mg tablet 500 mg PO Q6H PRN (Reason: pain) Qty: 60 RF: 2 Continued gabapentin 300 mg capsule 300 mg PO TID Qty: 90 RF: 0 losartan 25 mg tablet 25 mg PO DAILY RF: 0 nabumetone 500 mg tablet 500 mg PO BID RF: 0 escitalopram oxalate 20 mg tablet 20 mg PO DAILY RF: 0 omeprazole 40 mg capsule,delayed release(DR/EC) 40 mg PO DAILY RF: 0 celecoxib 200 mg capsule 200 mg PO BID Qty: 60 RF: 0 tramadol 50 mg tablet 50 mg PO Q8H PRN (Reason: pain) Qty: 21 RF: 0 No Action sildenafil 100 mg tablet RF: 0 testosterone cypionate 200 mg/mL oil 200 mg IM Q2W RF: 0 Discharge Instructions Stand Alone Forms: Jo Knee Arthroscopy Referrals: Rahul Osorio MD [ [facility] STAFF PHYSICIAN] - Equipment/Supplies: Partial Weight Bearing Crutches Activity:: Elevate Remove Dressings/Wound Care:: 72 hours Shower/Bathe:: 72 hours Diet:: As Tolerated Discharge Orders Discharge Orders: Discharge Order (Routine); Ordered 09/01/20 Ordered By: Brenda Ennis DS: Diagnosis Discharge Diagnosis (1) Internal derangement of left knee: Status: Acute Documented by User: Rahul Osorio MD 09/01/20 12:45 Discharge Plan Disposition Patient Disposition: HOME Condition: Good Discharge Details Reason For Visit: Left knee medial meniscus tear Attending Provider: Rahul Osorio Primary Care Provider: Pratima Fregoso Home Meds and New Rx's Prescriptions: New hydrocodone-acetaminophen 5-325 mg tablet 1 tab PO Q6H PRN (Reason: severe pain) Qty: 6 RF: 0 acetaminophen 500 mg tablet 500 mg PO Q6H PRN (Reason: pain) Qty: 60 RF: 2 Continued gabapentin 300 mg capsule 300 mg PO TID Qty: 90 RF: 0 losartan 25 mg tablet 25 mg PO DAILY RF: 0 nabumetone 500 mg tablet 500 mg PO BID RF: 0 escitalopram oxalate 20 mg tablet 20 mg PO DAILY RF: 0 omeprazole 40 mg capsule,delayed release(DR/EC) 40 mg PO DAILY RF: 0 celecoxib 200 mg capsule 200 mg PO BID Qty: 60 RF: 0 tramadol 50 mg tablet 50 mg PO Q8H PRN (Reason: pain) Qty: 21 RF: 0 No Action sildenafil 100 mg tablet RF: 0 testosterone cypionate 200 mg/mL oil 200 mg IM Q2W RF: 0 Discharge Instructions Stand Alone Forms: Jo Knee Arthroscopy Referrals: Rahul Osorio MD [ [facility] STAFF PHYSICIAN] - Equipment/Supplies: Partial Weight Bearing Crutches Activity:: Elevate Remove Dressings/Wound Care:: 72 hours Shower/Bathe:: 72 hours Diet:: As Tolerated Discharge Orders Discharge Orders: Discharge Order (Routine); Ordered 09/01/20 Ordered By: Brenda Ennis
[2020-09-01 11:46] VITALS: BP 145/93; PULSE 89; RESP 18; TEMP 37; O2SAT 96
[2020-09-01] MEDS: Acetaminophen 500 MG TAB 1000 MG PO (12:03)
[2020-09-01] MEDS: Lactated Ringers 1,000 ML 80 ML IV (12:20)
[2020-09-01] MEDS: ceFAZolin 3,000 MG in Normal Saline 100 ML 200 MG IVPB (13:09)
[2020-09-01] MEDS: Bupivacaine 0.5% Pres-Free 30 ML VIAL (14:01)
[2020-09-01 14:37] VITALS: BP 136/90; PULSE 83; RESP 20; TEMP 36.7; O2SAT 98
--- NOTE | 2020-09-01 14:43 | ROE_ITS ---
Date of service: 09/01/20 Time of Service: 13:46 Operative Note Operative Note DATE OF PROCEDURE: 09/01/20 PRE-OP DIAGNOSIS: Left Knee Medial Meniscus Tear POST-OP DIAGNOSIS: same Left Knee PROCEDURE: Left Knee Arthroscopic Partial Medial Menisectomy SURGEON: Rahul Osorio ANESTHESIA: spinal ESTIMATED BLOOD LOSS: 0 PATHOLOGY: none sent TOURNIQUET TIME: 0 COMPLICATIONS: None Patient was transported to: same day Patient's condition: stable Indications: I have seen Maverick in clinic for symptoms of a meniscus tear. T his was confirmed based on MRI and exam findings. Nonoperative measures were exhausted but disability and pain persisted. I discussed knee arthroscopy with meniscal intervention with the patient. I reviewed the risks of the procedure to include, but not limited to, bleeding, infection, pain, stiffness, damage to nerves or vessels, recurrence, blood clot. Despite these risks, the patient elected to proceed. Findings: A diagnostic arthroscopy was performed with the following findings: Suprapatellar Pouch: Mild inflammatory disease, No loose bodies Medial Compartment: Complex medial meniscal tear, Intact meniscal root, focal areas of grade III chondromalacia of the tibia and very focal aspects of the central till plateau with more global grade II chondromalacia of the medial femur with some focal grade 3 in the forms of unstable flaps, no loose bodies, taut medial plica against the medial femur Notch: ACL and PCL were intact Lateral Compartment: No meniscal tear, intact meniscal root, no significant chondromalacia or signs of arthritis, no loose bodies Patellofemoral Compartment: Grade I/II chondromalacia, no apparent patellar malt racking Procedure Description: Arian was greeted in the preoperative holding area where the correct side was identified and marked. The consent was reviewed with the patient and signed. The history and physical was updated. All questions were answered. Arian was taken back to the operating room. A spinal anesthetic was administered. The patient was placed into the supine position on the operating room table. A nonsterile tourniquet was placed high onto the leg but not used. All bony prominences were well padded. Prophylactic antibiotics in the form of cefazolin were administered. The left leg was then prepped with Chloraprep and draped in a standard fashion with stockinette and extremity drape. A timeout to confirm correct identity, side and site, procedure, allergies, anesthesia, and medical concerns was performed. The leg was placed into a pneumatic leg freed, [id number]. A standard lateral portal was made at the lateral border of the patella tendon in line with the inferior pole of the patella, soft spot. The skin and deep tissue was incised sharply and the blunt trochar was inserted atraumatically. A diagnostic arthroscopy was performed and the findings are listed above. The suprapatellar pouch had mild inflammatory changes. The patellofemoral articulation showed some grade I/II chondromalacia of the patella as well as good tracking. The lateral gutter had no loose bodies and the medial gutter had no loose bodies. The knee was brought into some valgus stress in extension to open the medial compartment. A medial portal was made, localized by a spinal needle. The portal was created with an #11 blade through skin and capsule under direct visualization avoiding any meniscal injury. A probe was then inserted into the medial compartment. The medial compartment was fully inspected. The chondral surface of the tibia showed very focal areas of grade III chondromalacia were my probe was able to contact the base layer but only focally within the central portion. The surface of the femur showed some grade II chondromalacia over the weightbearing portion of the femur with 2 loose flaps representing grade III chondromalacia. The medial meniscus had a complex meniscal tear mostly of the posterior horn with a primary horizontal component. After evaluation, the meniscus was debrided down to a stable base using a series of biters and arthroscopic teena. It was probed afterwards to confirm that the tear had been removed and the meniscus was stable. Cartilage surfaces were debrided of any flaps, leaving any intact fibers, using a full-radius shaver. The notch was then inspected which showed an intact ACL and an intact PCL. The leg was then brought into a figure of 4 position. The lateral compartment was fully inspected with the arthroscope and a probe. The chondral surface of the lateral femur showed no significant chondromalacia. The chondral surface of the lateral tibia showed no significant chondromalacia. The lateral meniscus had no meniscal tear. The arthroscope was brought back into the suprapatellar pouch and the leg was in full extension. The knee was thoroughly irrigated with the arthroscopic fluid on high flow and pressure. Inflow was stopped and excess fluid was removed. The wounds were closed with 4-0 Nylon. They were dressed with Xeroform, 4x4 gauze, ABD pad, Kerlix and an SUSANA wrap. A cryo-cuff was applied. The patient tolerated the procedure well and was returned to the Same Day Surgery area in a stable condition suffering no known complication.
[2020-09-01 15:02] VITALS: BP 140/89; PULSE 92; RESP 20; TEMP 36.8; O2SAT 98
[2020-09-01] MEDS: HYDROcodone 5/Acetaminophen 325 TAB PO (15:07)
--- NOTE | 2020-09-01 15:30 | W.PROCNOTE ---
Date of service: 09/01/20 Time of Service: 15:30 Procedure Note Date of procedure: 09/01/20 Procedure: Right Knee Injection Surgeon/Proceduralist/Physician: Rahul Osorio Procedure Diagnosis: Right Knee Injection Procedure Indications: Arian is a 45-year-old who has had persistent pain about the right knee. He underwent a left knee arthroscopic partial medial meniscectomy today. As we talked about the clinic, I recommended an injection to the right knee. His right knee MRI did demonstrate hyperintense signal within both medial lateral meniscus but no clear linear tear although suspected. He also had an effusion and sprain of the MCL. Given that he had the left knee arthroscopic surgery he desired the right knee injection help with pain and help with recovery. I reviewed the risk of the injection including persistent pain, infection. Despite these risk, he elects to proceed. Procedure Description: After a review of the risks of the injection, the patient agreed to proceed. The left knee was identified by the patient as the correct side. The superolateral border of the patella was identified and marked. The skin was prepped with alcohol. The knee joint was entered without difficulty and the injection, consisting of 6cc of 0.5% Bupivicaine and 80mg of DepoMedrol, was injected without resistance. The patient tolerated the procedure well and the injection site was dressed with a Band-Aid.
== END 2020-09-01 15:39 | disposition home or self-care (01) ==
LOC: SUR 11:18
PROVIDERS: PCP Physician Assistant Medical; Visit Provider Student in an Organized Health Care Education/Training Program
PROC: (CPT 29870; principal; 2020-09-01 13:00)
DX: S83.232A Complex tear of medial meniscus, current injury, left knee, initial encounter (principal); X58.XXXA Exposure to other specified factors, initial encounter; M94.262 Chondromalacia, left knee
CPT/HCPCS: 29881; E0114; J0690; J1100; J2405

== ENCOUNTER 2020-10-06 17:42 | Outpatient (REF) | payer OTHER, SELFPAY ==
[2020-10-06 20:55] LABS: HCT 44.7 % (40.0-50.0); HGB 15.1 g/dL (13.5-17.5)
[2020-10-06 21:06] LABS: ALT 37 U/L (16-63); AST 17 U/L (15-37); Albumin 3.9 g/dL (3.4-5.0); Alkaline Phosphatase 61 U/L (46-116); Anion Gap 7.4 mmol/L (3-11); BUN 21 mg/dL (7-18); Bilirubin, Total 0.8 mg/dL (0.2-1.0); CO2 29.6 mmol/L (21.0-32.0); CREATININE 1.04 mg/dL (0.70-1.30); Chloride 102 mmol/L (98-107); Glucose 119 mg/dL (74-106); Magnesium 1.8 mg/dL (1.8-2.4); Potassium 5.1 mmol/L (3.5-5.1); Sodium 139 mmol/L (136-145); Total Protein 6.8 g/dL (6.4-8.2)
[2020-10-06 21:13] LABS: Hemoglobin A1C 5.8 % (<5.7)
[2020-10-07 04:45] LABS: Vitamin D 25 Total 30.2 ng/ml (30-100)
[2020-10-07 17:32] LABS: PSA, Screening 0.2 ng/mL (0.0-2.5)
== END 2020-10-06 18:02 ==
LOC: NCHCN 17:42
PROVIDERS: PCP Physician Assistant Medical; Visit Provider Physician Assistant Medical
DX: E29.1 Testicular hypofunction (principal); I10 Essential (primary) hypertension; R73.09 Other abnormal glucose; R73.03 Prediabetes; E55.9 Vitamin D deficiency, unspecified
CPT/HCPCS: 80053; 82306; 84153; 84402; 84403; 83036; 83735; 85014; 85018

== ENCOUNTER 2020-10-20 20:45 | Outpatient (REF) | payer OTHER, SELFPAY ==
[2020-10-26 14:41] LABS: Testosterone, Free 34.5 ng/dL (4.26-16.4); Testosterone, Total 705 ng/dL (240-950)
== END 2020-10-20 20:46 | disposition home or self-care (01) ==
LOC: NCHCN 20:45
PROVIDERS: PCP Physician Assistant Medical; Visit Provider Physician Assistant Medical
DX: E29.1 Testicular hypofunction (principal)
CPT/HCPCS: 84402; 84403

== ENCOUNTER 2021-03-30 10:57 | Outpatient (REF) | payer OTHER, SELFPAY ==
[2021-04-01 13:55] LABS: COVID-19 RT-PCR UVMMC Result Negative (Negative)
== END 2021-03-30 10:58 | disposition home or self-care (01) ==
LOC: LBN 10:57
PROVIDERS: PCP Physician Assistant Medical; Visit Provider Physician Assistant Medical
DX: J06.9 Acute upper respiratory infection, unspecified (principal); Z20.822 Contact with and (suspected) exposure to COVID-19
CPT/HCPCS: U0003

== ENCOUNTER 2021-03-30 14:55 | Outpatient (CLI) | payer OTHER, SELFPAY ==
--- NOTE | 2021-03-30 | DI.RAD_ITS ---
Exam(s) XR CHEST 2V PA LATERAL EXAM: XR CHEST 2V PA LATERAL CLINICAL HISTORY: COUGH, R05. TECHNIQUE: 2D digital imaging was performed. COMPARISON: Prior chest x-ray 10/17/2019 FINDINGS: Heart size is normal. The mediastinum is not widened. Lungs are clear. No infiltrates nor pleural effusions. IMPRESSION: No acute pulmonary findings.No significant radiographic change compared to 10/17/2019. DATA REPOSITORY: RADIATION DOSE DELIVERED:
== END 2021-03-30 15:15 ==
PROVIDERS: PCP Physician Assistant Medical; Visit Provider Physician Assistant Medical
DX: R05 Cough (principal)
CPT/HCPCS: 71046

== ENCOUNTER 2021-05-19 15:43 | Outpatient (REF) | payer OTHER, SELFPAY ==
--- NOTE | 2021-05-19 13:55 | SKI_PTH ---
PATIENT: Maverick Buchanan LOC: [facility] U#:[id number] AGE/SX: 45/M ROOM: RE05/19/[address]: NANCIE Feliciano : 1975 BED: DIS: 05/19/2021 SPEC #: [id number] RECD: 05/19/21 18:18 STATUS: JUAN REQ #: [id number] MATT: 05/19/21 13:[address]: Carmen Parekh DEPT: Surgical Specimen RECD BY: Liyah Diamond ENTERED: 05/19/21 18:18 SP TYPE: JEANNE PRUITT DR: Pratima Fregoso Tissues: 1 - SKIN BIOPSY(SHAVE/PUNCH) Procedures: SKIN LEVEL 4 Comments: [id number]
== END 2021-05-19 15:44 | disposition home or self-care (01) ==
LOC: LBN 15:43
PROVIDERS: PCP Physician Assistant Medical; Visit Provider Physical Therapy Assistant
DX: D22.5 Melanocytic nevi of trunk (principal)
CPT/HCPCS: 88305

== ENCOUNTER 2021-08-01 15:12 | Outpatient (CLI) | payer OTHER, SELFPAY ==
--- NOTE | 2021-08-01 14:30 | DI.RAD_ITS ---
Exam(s) XR KNEE LT 3V AP,LAT,HILTON EXAM: XR KNEE LT 3V AP,LAT,HILTON CLINICAL HISTORY: right knee pain. TECHNIQUE: 2D digital imaging was performed. COMPARISON: MR MR LOWER JOINT LT WO from 07/30/2020 FINDINGS: BONES: No acute fracture is present. No bony destructive lesion is seen. JOINTS: Mild medial femoral tibial joint space narrowing. Mild periarticular spurring. The knee is normally aligned. No joint effusion is seen. SOFT TISSUE: Normal. IMPRESSION: Mild degenerative changes medial femoral tibial joint. DATA REPOSITORY: RADIATION DOSE DELIVERED:
== END 2021-08-01 15:13 | disposition home or self-care (01) ==
LOC: DIORS 15:12
PROVIDERS: PCP Physician Assistant Medical; Referring Provider Physician Assistant Medical; Visit Provider Physician Assistant
DX: M25.561 Pain in right knee (principal)
CPT/HCPCS: 73562

== ENCOUNTER 2021-08-09 16:33 | Outpatient (REF) | payer OTHER, SELFPAY ==
[2021-08-09 19:44] LABS: ALT 47 U/L (16-63); AST 24 U/L (15-37); Albumin 3.8 g/dL (3.4-5.0); Alkaline Phosphatase 63 U/L (46-116); Anion Gap 9.3 mmol/L (3-11); BUN 24 mg/dL (7-18); Bilirubin, Total 0.9 mg/dL (0.2-1.0); CO2 27.7 mmol/L (21.0-32.0); CREATININE 1.2 mg/dL (0.70-1.30); Calcium 8.7 mg/dL (8.5-10.1); Chloride 104 mmol/L (98-107); Glucose 163 mg/dL (74-106); Potassium 3.7 mmol/L (3.5-5.1); Sodium 141 mmol/L (136-145); Total Protein 6.7 g/dL (6.4-8.2)
[2021-08-15 13:19] LABS: IgA 162 mg/dL (85-499); Interpretation (See Note); Tissue Transglutaminase IgA <1.2 U/mL (<4.0)
== END 2021-08-09 16:34 | disposition home or self-care (01) ==
LOC: NCHCN 16:33
PROVIDERS: PCP Physician Assistant Medical; Visit Provider Physician Assistant Medical
DX: R19.7 Diarrhea, unspecified (principal); I10 Essential (primary) hypertension
CPT/HCPCS: 80053; 82784; 83516

== ENCOUNTER 2021-11-29 13:48 | Outpatient (REF) | payer OTHER, SELFPAY ==
[2021-11-29 19:45] LABS: HCT 45.8 % (40.0-50.0)
== END 2021-11-29 13:49 | disposition home or self-care (01) ==
LOC: NCHCN 13:48
PROVIDERS: PCP Physician Assistant Medical; Visit Provider Physician Assistant Medical
DX: E29.1 Testicular hypofunction (principal)
CPT/HCPCS: 84402; 84403; 85014

== ENCOUNTER 2021-12-02 15:07 | Outpatient (REF) | payer OTHER, SELFPAY ==
[2021-12-08 16:09] LABS: Testosterone, Free 6.05 ng/dL (4.26-16.4); Testosterone, Total 178 ng/dL (240-950)
== END 2021-12-02 15:08 | disposition home or self-care (01) ==
LOC: NCHCN 15:07
PROVIDERS: PCP Physician Assistant Medical; Visit Provider Physician Assistant Medical
DX: E29.1 Testicular hypofunction (principal)
CPT/HCPCS: 84402; 84403

== ENCOUNTER 2022-01-25 12:20 | Outpatient (REF) | payer OTHER, SELFPAY ==
[2022-01-25 15:25] LABS: HCT 47.2 % (40.0-50.0)
[2022-01-25 16:00] LABS: Hemoglobin A1C 5.8 % (<5.7)
[2022-01-27 22:50] LABS: PSA, Screening 2.2 ng/mL (<=2.5)
[2022-01-31 11:10] LABS: Testosterone, Free 26.8 ng/dL (4.26-16.4); Testosterone, Total 704 ng/dL (240-950)
== END 2022-01-25 12:21 | disposition home or self-care (01) ==
LOC: NCHCN 12:20
PROVIDERS: PCP Physician Assistant Medical; Visit Provider Physician Assistant Medical
DX: R73.09 Other abnormal glucose (principal); E29.1 Testicular hypofunction
CPT/HCPCS: 84153; 84402; 84403; 83036; 85014

== ENCOUNTER 2022-01-30 08:37 | Outpatient (CLI) | payer OTHER, SELFPAY ==
--- NOTE | 2022-01-30 08:15 | DI.RAD_ITS ---
Exam(s) XR KNEE RT 3V AP,LAT,HILTON EXAM: XR KNEE RT 3V AP,LAT,HILTON CLINICAL HISTORY: right knee pain. TECHNIQUE: 2D digital imaging was performed. Three views. COMPARISON: CR XR KNEE RT 3V AP,LAT,HILTON from 06/09/2020 CR XR KNEE LT 3V AP,LAT,HILTON from 01/30/2022 FINDINGS: BONES: No acute fracture is present. No bony destructive lesion is seen. JOINTS: The knee is normally aligned. No joint effusion is seen. Mild periarticular spurring is noted , increasing from the previous exam. A calcification is again visible adjacent to the anterior aspec t of the proximal tibia. SOFT TISSUE: Normal. IMPRESSION: Mild degenerative changes. DATA REPOSITORY: RADIATION DOSE DELIVERED:
--- NOTE | 2022-01-30 08:15 | DI.RAD_ITS ---
Exam(s) XR KNEE LT 3V AP,LAT,HILTON EXAM: XR KNEE LT 3V AP,LAT,HILTON CLINICAL HISTORY: left knee pain. TECHNIQUE: 2D digital imaging was performed. Three views. COMPARISON: CR XR KNEE LT 3V AP,LAT,HILTON from 08/01/2021 FINDINGS: BONES: No acute fracture is present. No bony destructive lesion is seen. There is mild periarticul ar spurring, increasing slightly when compared with the previous exam. JOINTS: The knee is normally aligned. No joint effusion is seen. SOFT TISSUE: Normal. IMPRESSION: Mild degenerative changes, greatest of the medial femoral tibial joint DATA REPOSITORY: RADIATION DOSE DELIVERED:
== END 2022-01-30 08:38 | disposition home or self-care (01) ==
LOC: DIORS 08:37
PROVIDERS: PCP Physician Assistant Medical; Visit Provider Physician Assistant Medical
DX: M25.561 Pain in right knee; M25.562 Pain in left knee; M23.8X2 Other internal derangements of left knee; M17.0 Bilateral primary osteoarthritis of knee
CPT/HCPCS: 73562

== ENCOUNTER 2022-02-03 01:32 | Outpatient (CLI) | payer OTHER, SELFPAY ==
[2022-02-03 11:01] LABS: Source Nasal/Nares
[2022-02-03 14:42] LABS: COVID-19 PCR Negative (Negative)
== END 2022-02-03 01:33 | disposition home or self-care (01) ==
LOC: LBO 01:32
PROVIDERS: PCP Physician Assistant Medical; Visit Provider Student in an Organized Health Care Education/Training Program
DX: Z20.822 Contact with and (suspected) exposure to COVID-19 (principal); Z01.818 Encounter for other preprocedural examination
CPT/HCPCS: 87635

== ENCOUNTER 2022-02-03 10:46 | Outpatient (CLI) | payer OTHER, SELFPAY ==
--- NOTE | 2022-02-03 09:00 | DI.RAD_ITS ---
Exam(s) XR STANDING ALIGNMENT EXAM: XR STANDING ALIGNMENT CLINICAL HISTORY: [facility] 02/07/22. TECHNIQUE: 2D digital imaging was performed. Standing AP views were performed from the pelvis throu gh the ankles. COMPARISON: CR XR KNEE LT 3V AP,LAT,HILTON from 01/30/2022 CR XR KNEE RT 3V AP,LAT,HILTON from 01/30/2022 FINDINGS: BONES: No acute fracture is present. No bony destructive lesion is seen. JOINTS: Hip joints not well evaluated due to overlying soft tissues. No gross joint space narrowing. Minimal acetabular spurring. No overall leg length discrepancy. Knees: Mild degenerative changes of the medial femoral tibial joint and mild periarticular spurring. Spaces The ankle joints are unremarkable. SOFT TISSUE: Normal. IMPRESSION: Mild degenerative changes of the medial femoral tibial joint spaces. No significant leg length discr epancy. DATA REPOSITORY: RADIATION DOSE DELIVERED:
== END 2022-02-03 10:47 | disposition home or self-care (01) ==
LOC: DIORS 10:46
PROVIDERS: PCP Physician Assistant Medical; Referring Provider Physician Assistant Medical; Visit Provider Student in an Organized Health Care Education/Training Program
DX: M25.562 Pain in left knee; M17.12 Unilateral primary osteoarthritis, left knee; Z01.818 Encounter for other preprocedural examination
CPT/HCPCS: 77073

== ENCOUNTER 2022-02-07 07:16 | Day surgery (SDC) | payer OTHER, SELFPAY ==
[2022-02-07] VITALS (9 sets, daily range): BP systolic 142–175; BP diastolic 78–104; PULSE 76–95; RESP 15–21; TEMP 36.2–37; O2SAT 95–100; BMI 46.1
[2022-02-07] MEDS: Gabapentin 300 MG CAP PO (07:59)
[2022-02-07] MEDS: Acetaminophen 500 MG TAB 1000 MG PO ×2 (07:59→16:02)
[2022-02-07] MEDS: Celecoxib 200 MG CAP 400 MG PO (07:59)
[2022-02-07] MEDS: Lactated Ringers 1,000 ML 80 ML IV (08:05)
--- NOTE | 2022-02-07 10:07 | W.ANESPRE ---
General Info Date of Service Date Performed: 02/07/22 Height: 5 ft 9 in Weight: 141.7 kg Body Mass Index (BMI): 46.1 Surgical Procedure: Operation Date: 02/07/22 09:40 Proposed Procedure Side Surgeon p Knee Total Arthroplasty Cementless CR Left Rahul Osorio MD s Knee Injection Right Rahul Osorio MD Meds Allergies and Home Medications Allergies Allergy/AdvReac Type Severity Reaction Status Date / Time trazodone Allergy Unknown unknown Verified 02/07/22 07:32 Home Medication Medication Instructions Recorded escitalopram oxalate 20 mg tablet 20 mg PO DAILY 07/12/20 losartan 25 mg tablet 25 mg PO DAILY 07/12/20 nabumetone 500 mg tablet 500 mg PO BID 07/12/20 omeprazole 40 mg capsule,delayed 40 mg PO DAILY 07/12/20 release acetaminophen 500 mg tablet 500 mg PO Q6H PRN pain #60 tabs 09/01/20 sildenafil 100 mg tablet 100 mg PO DIRECTED 09/01/20 testosterone cypionate 200 mg/mL 200 mg IM Q2W 09/01/20 intramuscular oil cholecalciferol (vitamin D3) 25 25 mcg PO DAILY 03/04/21 mcg (1,000 unit) capsule Current Visit Medications: Current Medications Generic Name Dose Route Start Last Admin Trade Name Freq PRN Reason Stop Dose Admin Acetaminophen 1,000 mg 02/07/22 06:00 02/07/22 07:59 Acetaminophen 500 Mg Tab PO 02/07/22 16:00 1,000 mg PREOP WILLARD Administration Celecoxib 400 mg 02/07/22 06:00 02/07/22 07:59 Celecoxib 200 Mg Cap PO 02/07/22 16:00 400 mg PREOP WILLARD Administration Gabapentin 300 mg 02/07/22 06:00 02/07/22 07:59 Gabapentin 300 Mg Cap PO 02/07/22 16:00 300 mg PREOP WILLARD Administration Tranexamic Acid 1,000 mg/ 60 mls @ 360 mls/hr 02/07/22 06:00 Sodium Chloride IVPB 02/07/22 16:00 PREOP WILLARD Tranexamic Acid 1,000 mg/ 60 mls @ 360 mls/hr 02/07/22 06:00 Sodium Chloride IVPB 02/07/22 16:00 DIRECTED WILLARD Ringer's Solution 1,000 mls @ 80 mls/hr 02/07/22 06:00 IV 03/05/22 23:59 INFUSION WILLARD Cefazolin Sodium 3 gm in 100 mls @ 200 mls/hr 02/07/22 06:00 Ancef Premix IVPB 02/07/22 23:59 PREOP WILLARD IV Miscellaneous Supplies 1 each 02/07/22 06:00 Iv Access IV 03/05/22 23:59 DIRECTED WILLARD Sodium Chloride 0 ml 02/07/22 06:00 Normal Saline Flush 10 Ml Syr IV 03/05/22 23:59 PRN PRN Sodium Chloride 0 ml 02/07/22 06:00 Normal Saline 10 Ml Vial IJ 03/05/22 23:59 DIRECTED PRN Sterile Water 0 ml 02/07/22 06:00 Water,Injection,Sterile 10 Ml Vial IJ 03/05/22 23:59 DIRECTED PRN PFSH Active Problems Active Problems: Problem Status Onset Code Olecranon bursitis of left elbow M70.22 Neuritis of right ulnar nerve G56.21 Pelvic pain in male R10.2 Bilateral varicoceles I86.1 Scrotal abscess N49.2 Internal derangement of right knee M23.91 Tear of medial meniscus of right knee S83.241A Atypical nevus D22.9 Perirectal abscess K61.1 GERD (gastroesophageal reflux disease) K21.9 Prediabetes R73.03 Anxiety F41.9 MONICA (obstructive sleep apnea) G47.33 Shortness of breath R06.02 Myalgia M79.10 Insomnia G47.00 Obesity E66.9 Left knee DJD M17.12 Medical History Medical History Chest discomfort Per pt. states it was a pulled muscle HTN (hypertension) Hypogonadism Neuropathy Plantar fasciitis Surgical History Surgical History (Updated 02/07/22 @ 07:36 by Sejal Clayton) H/O vasectomy History of back surgery Per pt. they removed bone spurs from my lower back History of hydrocelectomy History of orchiectomy History of tonsillectomy adnoids Hx of colonoscopy S/P arthroscopic partial medial meniscectomy LEFT DOS: 09/01/20 S/P surgical removal of pilonidal cyst Tobacco Smoking/Tobacco Use Status: Never Alcohol Alcohol Intake: current Alcohol intake frequency: a few times a week Alcohol type: beer Substance Use Substance use: Never Substance use type: does not use Details: ALCOHOL: t-2, 2 beers Vital Signs and Lab Results Lab Results Blood Type / Crossmatch: No Data to Display Complete Blood Count: Hematocrit 47.2 % (40.0-50.0) 01/25/22 07:40 Complete Metabolic Panel: Hemoglobin A1c 5.8 % (<5.7) H 01/25/22 07:40 Liver Function Panel: No Data to Display Coagulation Panel: No Data to Display Cardiac Panel: No Data to Display Arterial Blood Gas: No Data to Display Venous Blood Gas: No Data to Display Pancreas Panel: No Data to Display Thyroid Panel: No Data to Display Infectious Disease: Coronavirus (COVID-19)(PCR) Negative (Negative) 02/03/22 10:53 Coronavirus 2019 Source Nasal/Nares 02/03/22 10:53 Blood Cultures: No Data to Display Toxicology Panel: No Data to Display Anesthesia Assessment and Plan Anesthesia History Personal History: No History of Anesthesia Complications Family History: No Family History of Anesthesia Complications Exercise Tolerance Exercise Tolerance: Metabolic Equivalents>4 Pertinent Negatives Pertinent Negatives: No Symptoms of GERD, No Major Cardiovascular Symptoms or Complaints and No Major Pulmonary Symptoms or Complaints Cardiac & Pulmonary Exam Cardiac Exam: Normal S1/S2 Heart Sounds Pulmonary Exam: Clear Bilateral Breath Sounds Implantable Cardiac Device Does patient have a Pacemaker or an ICD?: No Airway Exam Known Difficult Airway: No Mallampati Class: 1 Mouth Opening: Normal (> 3cm) Thyromental Distance: Greater than 3 cm Neck Range of Motion: Full ROM Neck Circumference: Thick Teeth Condition: Normal Dentition ASA Classification ASA Score: ASA 3 Emergency Case?: No NPO Status NPO Status: NPO Clears >2 hours, Solids >8 hours Anesthesia Plan Resuscitation Status: Full Code Anesthesia Technique: Spinal Anesthesia Airway Planned: Natural Airway Pain Management: Surgeon and patient request nerve block Monitors Used: Standard Monitors
--- NOTE | 2022-02-07 10:50 | PDOC.DSDIS_ITS ---
Discharge Plan Disposition Patient Disposition: HOME Condition: Good Discharge Details Reason For Visit: L TKA, R knee injection Attending Provider: Rahul Osorio Primary Care Provider: Pratima Fregoso Home Meds and New Rx's Prescriptions: New celecoxib 200 mg capsule 200 mg PO BID Qty: 60 0RF aspirin 81 mg tablet,delayed release (DR/EC) 81 mg PO BID Qty: 60 0RF acetaminophen 500 mg tablet 1,000 mg PO TID Qty: 90 3RF gabapentin 300 mg capsule 300 mg PO QHS Qty: 14 0RF oxycodone 5 mg tablet 5 mg PO Q4H MDD 6 tabs PRN (Reason: pain) Qty: 20 0RF Continued losartan 25 mg tablet 25 mg PO DAILY nabumetone 500 mg tablet 500 mg PO BID escitalopram oxalate 20 mg tablet 20 mg PO DAILY omeprazole 40 mg capsule,delayed release(DR/EC) 40 mg PO DAILY cholecalciferol (vitamin D3) 25 mcg (1,000 unit) capsule 25 mcg PO DAILY sildenafil 100 mg tablet 100 mg PO DIRECTED testosterone cypionate 200 mg/mL oil 200 mg IM Q2W Label Comments: INJECT 1 ML INTO THE MUSCLE EVERY 14 DAYS Discontinued acetaminophen 500 mg tablet 500 mg PO Q6H PRN (Reason: pain) Qty: 60 2RF Label Comments: Pt denies taking recently Discharge Instructions Additional Instructions: Total Knee Discharge Instructions Activity: The most important activity is to walk. You should try to take short walks a few times a day. It is important that when resting you work on keeping the knee straight. Avoid putting a pillow behind the knee as this will encourage flexion. Work on range of motion exercises as provided by Physical Therapy. - Start outpatient physical therapy within 2 weeks. - You should wear the DANI hose on both legs for 2 weeks. You may remove these at night. You may also use any compression sock in place of the DANI hose. - Utilize [employer] to review exercises, see videos on exercises and obtain basic information pertaining to your surgery and your recovery. Dressing: Remove the Ciro wrap by 2 days after your surgery and put on the DANI stocking given to you from the hospital. Keep the surgical dressing (underneath the CIRO wrap) in place for at least one week. After the first week it may be removed and replaced with light gauze and tape or nothing. The wound and dressing may get wet after 3 days but avoid soaking the dressing or otherwise it will need to be changed. Many people prefer covering the dressing with cling wrap (saran wrap) to minimize it from getting soaked. If it gets wet, just pat dry. If it starts to peel off then it will need to be changed. Medications: - You should take Tylenol and anti-inflammatory Celebrex as your primary pain control medications. If the Celebrex is too expensive or not covered, please call the office for another alternative (Advil/Ibuprofen or Naproxen/Aleve) - You have been prescribed a stronger pain medication Oxycodone for breakthrough pain, take as needed as prescribed. - You will continue your omeprazole to help reduce stomach acid and reflux. - You have been prescribed Gabapentin to take at night for restlessness and nerve pain. - You will be taking Aspirin 81mg twice a day for DVT prevention unless instructed otherwise. - If you have constipation you should take Colace or Miralax (both [id number]). It takes most people 3-4 days to have a bowel movement. Follow-up: 2 weeks If you have any acute concerns or questions, please do not hesitate to contact the office at [phone]. You may contact Dr. Osorio with any questions after hours through the hospital at [phone] or on his cell phone at [phone]. Referrals: Rahul Osorio MD [ [facility] STAFF PHYSICIAN] - Equipment/Supplies: Walker Activity:: Activity as Tolerated Shower/Bathe:: 72 hours Diet:: As Tolerated Discharge Orders Discharge Orders: Discharge Order (Routine); Ordered 02/07/22 Ordered By: Rahul Osorio DS: Diagnosis Discharge Diagnosis (1) Left knee DJD: Status: Acute (2) Tear of medial meniscus of right knee: Status: Acute
[2022-02-07] MEDS: methylPREDNISolone ACETATE 80 MG/ML VIAL (11:50)
[2022-02-07] MEDS: Bupivacaine 0.5% Pres-Free 30 ML VIAL (11:50)
--- NOTE | 2022-02-07 12:06 | W.ANESNERVE ---
Nerve Block Single Injection Procedure Date and Time Date Performed: 02/07/22 Procedure Start: 11:28 Location Where Procedure Performed Procedure Location: Day Surgery Unit Reason Performed: Postoperative Analgesia Requesting Provider: Rahul Osorio Timeout Performed Timeout Performed: Yes Monitoring Used ECG, Blood Pressure, SpO2 and See EMR for corresponding vital signs Sterility Sterility: Hand Hygiene, Surgical Cap, Surgical Mask, Sterile Gloves and Chlorhexidine Sedation Given During Procedure Sedation Given (Indicate Dose Given): No Sedation given Patient Mental Status Patient Mental Status: Awake Nerve Block 1st Nerve Block: Laterality: Left Block Type: Adductor Canal Needle / Catheter Used: 120mm SonoPlex II Local Anesthetic Bolus (Indicate Dose Given): Lidocaine used for local infiltration of skin, Injected in 3-5ml increments after negative blood aspiration, Bupivacaine 0.25% Dose:: 10ml and Bupivacaine 0.5% Dose:: 10ml Additives (Indicate Dose Given): None Ultrasound: Sterile probe cover and gel used Ultrasound Image Saved?: Yes Nerve Stimulator: Not Used Paresthesia: None Procedure Tolerated: No Complications and Patient tolerated well Procedure Outcome: Successful Performed By: Librado Carter
--- NOTE | 2022-02-07 13:25 | W.PM.OP ---
Date of service: 02/07/22 Time of Service: 12:25 Operative Note Operative Note DATE OF PROCEDURE: 02/07/22 PRE-OP DIAGNOSIS: Left Knee Osteoarthritis, Right Knee Osteoarthritis POST-OP DIAGNOSIS: same PROCEDURE: Left Total Knee Replacement, Right Knee Intra-Articular Injection SURGEON: Rahul Osorio SENIOR CONSTRUCTION MANAGER: Robert Askew ANESTHESIA TYPE: Spinal Refer to Anesthesia Record ESTIMATED BLOOD LOSS: 150 PATHOLOGY: none sent TOURNIQUET TIME: 0 COMPLICATIONS: None Patient was transported to: PACU Patient's condition: stable Implants: 1. Depuy Attune Cementless Cruciate Retaining Femoral Component, Size 7 2. Depuy Attune Cementless Rotating Platform Tibial Component, Size 6 3. Depuy Attune 7x5mm CR/RP Poly 4. Depuy Attune Patellar Component, Size 38 Indications: I have seen Arian in clinic for symptoms of knee arthritis, confirmed with radiographic findings. He has exhausted nonoperative methods and was having significant limitations in daily function and desired better function and less pain. I discussed the technical details of a knee replacement. I explained the risks of the procedure to include, but not limited to, bleeding, infection, pain, stiffness, fracture, damage to nerves and vessels, damage to muscles and tendons, loosening, need for repeat procedure, blood clot and cardiopulmonary demise. Despite these risks, Arian elected to proceed. Findings: There was notable loss of cartilage on the weight bearing portion of the medial femur and posteriorly on the medial tibia. There was also loss of cartilage and a cartilage flap from the median ridge of the patella. Procedure Description: Arian was greeted in the preoperative holding area where the correct side was identified and marked. The consent was reviewed with the patient and signed. The history and physical was updated. All questions were answered. Preoperative medications were administered: Acetaminophen 1000mg, Celebrex 400mg, and Gabapentin 300mg. An adductor canal block was then administered by the anesthesia team in the PACU. Arian was taken back to the operating room. A spinal anesthestic was then administered. The patient was placed into the supine position on the operating room table. A nonsterile tourniquet was placed high onto the leg but only used for cementing. Posts were placed for positioning during the procedure. All bony prominences were well padded. Prophylactic antibiotics in the form of Cefazolin were administered. 1g of Tranxemic Acid was given intravenously within 30 minutes of incision. The right knee injection was performed first. The soft spot over the superolateral aspect of the right knee was identified and marked on the skin. This area was then prepped with ChloraPrep. An injection into the right knee was then performed without difficulty with 7 cc of 0.5% ropivacaine and 80 mg of Depo-Medrol. A Band-Aid was applied. The left leg was then prepped with Chloraprep and draped in a standard fashion with impervious stockinette. A second prep with Chloraprep was performed prior to application of Iodine impregnated skin protection. A timeout to confirm correct identity, side and site, procedure, allergies, anesthesia, and medical concerns was performed. With the knee in some flexion, a midline incision was made overlying the knee. Full thickness skin flaps were raised once the extensor mechanism was encountered. These were raised medially and laterally. Any bleeding was controlled with electrocautery. Once the extensor mechanism was fully exposed, a medial parapatellar arthrotomy was performed in a flexed position. All bleeding from the arthrotomy and the geniculate arteries was coagulated. A medial subperiosteal peel was performed with electrocautery to the midcoronal plane. The fat pad was removed while keeping the patellar tendon protected. The anterior distal femur synovium was removed for later visualization. The ACL and PCL were resected and the anterior horn of the lateral meniscus was transected. The knee was then flexed with the patella everted. Using a step drill, and based on preoperative templating, the femoral canal was entered. This was done with a step drill without any difficulty. The intramedullary distal femoral cut guide was inserted, set to a 5 degree valgus cut and 9mm cut thickness. The distal femoral cut guide was then held in position and pinned. With the soft tissues protected, the distal cut was performed. This was passed over a few times to ensure a planar cut. I then turned attention to the tibia. The extramedullary guide was placed onto the leg. The distal aspect was slid medial to adjust for position of center of ankle and stay in line with shaft of the tibia. Approximately 3-5 degrees of posterior slope was kept in the proximal cutting guide. The center of the guide was aligned with the PCL. The stylus was used to assess cut thickness. The medial side, most involved side, was set for a 5mm cut. This was then held in position and pinned into place with 2 additional pins and a cross pin for stability. The medial and lateral collateral ligaments were protected and the cut was performed. With this completed, it was assessed and noted to be of appropriate dimensions. The guide was removed. A spacer block was inserted and the knee was brought into extension. The 5mm spacer block provided full extension, without hyperextension and with stability of both the medial and lateral collateral ligaments was assessed. The pins from the femur and the tibia were then removed. The distal femur was then sized. The anterior stylus was placed onto the lateral ridge of the anterior femur. This indicated a size 7 femur. The external rotation of the guide was adjusted to 3 degrees to match the epicondylar axis, perpendicular to [place]?s line. The 4-in-1 cutting guide was the placed. The posterior medial femur cut was evaluated and appeared of good thickness. The spacer block was inserted underneath the cutting guide and stability was confirmed in 90 degrees of flexion. An kaushal wing was used to confirm appropriate position of the anterior cut to avoid notching. This cutting guide was ensured to be flush on the cut surface and then pinned into place with headed pins. While protecting the soft tissues, quad tendon, and collateral ligaments, the anterior and posterior cuts were performed with a saw. The central two pins were removed and the posterior and anterior chamfers were cut next. The notch-cutting guide was placed. This was pinned to lateralize the femoral component as much as possible while keeping it flush on the cut surface. This was then pinned into position. A reciprocating saw was used to make the notch cut. A rasp smoothed the cut surfaces. The medial and lateral menisci were removed. A trial femoral component was then inserted, impacted down to the cut surfaces, and the lug holes were drilled. A provisional trial tibial component was placed and the knee was brought through range of motion. There was noted to be excellent extension and flexion. There was no significant instability. The patella was tracking without thumbs. A size 5mm polyethylene component provided the best range of motion and stability with less than 2mm gapping with medial and lateral stress and full extension without significant hyperextension. The tibial cut surface was fully exposed. The tibia was then sized as a 6. The tibia had been previously marked during trialing to correspond to the center of the tibial component to help with rotation. The trial was aligned to this robert, approximately rotated to the medial 1/3rd of the tibial tubercle. The trial was pinned into place. The tibia was prepared with a reamer and a keel punch and lug holes. The knee was then brought into extension and the patella was measured as 26mm. Using the patellar clamp and cut guide, this was resected to a flat surface with at least 13mm of thickness remaining. The size 38 patella fit the best. This was oriented and then clamped into position. The lugs were drilled. The trial components were removed. The final components were opened on the back table. The periosteal and capsular tissues, especially posteriorly, around the knee were then systematically injected with a periarticular cocktail consisting of 246mg of Ropivacaine, 0.5mg of Epinephrine, 0.08mg of Clonidine, and 30mg of Ketorolac, diluted to 100cc. On the back table, with the implants opened, the cement was mixed. One batch of high viscosity cement was prepared with vacuum assistance. After the cement was ready a small amount was placed on the cut surface of the patella and the patellar button was clamped into position and held. While the cement was hardening, the cementless knee components were placed. Starting with the tibial component, the tibia was subluxed anteriorly and the lug holes of the component were lined up. The tibia was then impacted with an impactor and mallet until the tibial component was in contact with the tibia. The final polyethylene component was inserted. Then, the femoral component was inserted. The lug holes were aligned and the component was impacted into position. The knee was irrigated with Surgiphor Betadine solution. This was allowed to sit in the knee for 3 minutes and then it was irrigated out with saline. After the cement had finally cured, approximately 15min, the clamp was removed from the patella and the knee was taken through range of motion. The patella was tracking with a no-thumbs technique. The capsule was then reapproximated with a No. 1 Vicryl at multiple locations. The capsule was finally closed with a No. 2 Stratafix, barbed suture. Deep tissues were then reapproximated with 0 Vicryl and 2-0 Vicryl. The skin was closed with a running 3-0 Monocryl in a subcuticular fashion. This was reinforced with skin glue. A Mepilex silver dressing was applied along with a [id number] SUSANA wrap. A CryoCuff was applied. Arian was transferred to the hospital bed without difficulty an suffering no apparent complication. Arian has a good prognosis. Physical therapy will start today and without restrictions, weight-bearing as tolerated. Aspirin 81mg BID will be used for DVT prophylaxis.
[2022-02-07] MEDS: oxyCODONE 5 MG TAB PO (14:34)
[2022-02-07] MEDS: Normal Saline Flush 10 ML SYR IV (14:40)
--- NOTE | 2022-02-07 14:46 | W.ANESPOSTOP ---
Postoperative Evaluation Date, Time and Location Date Performed: 02/07/22 Time Performed: 13:46 Patient Location: Day Surgery Unit Vital Signs Most Recent Imported Vital Signs: Most Recent Vital Signs Temp Pulse Resp BP Pulse Ox 36.4 C L 76 15 154/103 H 98 02/07/22 14:07 02/07/22 14:07 02/07/22 14:07 02/07/22 14:07 02/07/22 14:07 Pain Score Most Recent Pain Score: Most Recent Pain Score Pain Level 4 02/07/22 11:20 Assessment Mental Status: Awake (Alert & Oriented to Patient Baseline) Airway and Respiratory Function: Patent airway with normal (patient baseline) respiratory exam Cardiovascular Function: Hemodynamically Stable Hydration Status: Adequately Hydrated Nausea & Vomiting: No Nausea or Vomiting Pain: Pain is tolerable per patient Peripheral Nerve Block: Regional nerve block not resolved at time of post operative discharge
--- NOTE | 2022-02-07 15:16 | IN_ITS ---
Date of service: 02/07/22 Time of Service: 15:16 PT Notes Visit Reasons: L TKA, R knee injection Physical Therapy Day Surgery Initial Evaluation Date: 02/07/2022 Referring Doctor: NANCIE Gallego PT Orders: PT CONSULT: S/P Ortho surgery Precautions: WBAT on left LE with AD. Patient Profile/Admitting Diagnosis: Maverick is a 46-year-old male with primary unilateral osteoarthritis of the left knee and right knee internal derangement. He is status post left total knee art hroplasty on postoperative day 0 and S/P right knee intra-articular injection. PMHX: All Active Problems? Left knee DJD (Acute) Depo-Medrol: 08/01/2021; 11/25/2020 Obesity (Chronic) Insomnia (Acute) Myalgia (Acute) Shortness of breath (Acute) MONICA (obstructive sleep apnea) (Chronic) Anxiety (Chronic) Prediabetes (Acute) GERD (gastroesophageal reflux disease) (Chronic) Perirectal abscess (Acute) Atypical nevus (Acute) Olecranon bursitis of left elbow (Acute) Prominent osteophyte Neuritis of right ulnar nerve (Acute) Scrotal abscess (Acute) Tear of medial meniscus of right knee (Acute) Depo-Medrol injection: 09/13/2021; 09/01/2020 Internal derangement of right knee (Acute) Bilateral varicoceles (Acute) Pelvic pain in male (Acute) Medical History? Chest discomfort HTN (hypertension) Hypogonadism Neuropathy Plantar fasciitis Surgical History? H/O vasectomy History of back surgery Per pt. they removed bone spurs from my lower back History of hydrocelectomy History of orchiectomy History of tonsillectomy adenoids S/P arthroscopic partial medial meniscectomy LEFT DOS: 09/01/20 S/P surgical removal of pilonidal cyst Social History/Home Situation: Lives with and kids in a private home with 3 steps to enter with rails on both sides. Independent with all aspects of ADLs prior to surgery. Does woodworking. works as an outpatient physical therapist. Equipment Owned/DME: [employer] Subjective: Patient is agreeable to PT consult. Reports 6/10 pain in the front of his L thigh, not in the L knee. Denies pain in R knee. Indicates stiffness at the start. Did verbalize pain diminishing to 3-4/10 pain after ambulation activity. Objective: General Observation: Supine in bed. present throughout session. SUSANA wrap to L LE. Cryocufff to L knee. TEDS on R leg. Mental Status: Alert and oriented x 4 Pain: 6/10 at rest at the outset; 3-4/10 after ambulation activity ROM: Right Lower Extremity: Hip flexion WFL. Hip abduction WFL. Knee flexion WFL. Ankle dorsiflexion WFL. Ankle plantarflexion WFL. Left Lower Extremity: Hip flexion WFL. Hip abduction WFL. Knee flexion about 10- 15 degrees to 90 degrees. Knee extension about -10 to -15 degrees. Ankle dorsiflexion WFL. Ankle plantarflexion WFL. Strength: Right Lower Extremity: Hip flexors 5/5. Knee flexors 5/5. Knee extensors 5/5. Ankle dorsiflexors 5/5. Left Lower Extremity: Hip flexors 4/5. Knee flexors 3-/5. Knee extensors 3-/5. Ankle dorsiflexors 5/5. Sensation: Intact as to pain and light pressure in bilateral lower extremities Bed Mobility/Transfers: Supine to sit standby assist Sit to stand contact-guard assist Stand to sit standby assist THERA EX: Instructed patient with SLR x 10 in supine with an extension lag of about 10-15 degrees on the R, hip flexion x 5 while seated at edge of bed, LAQ x 5 while seated at edge of bed, ankle DF/PF x 5 while seated at edge of bed. Gait: Instructed patient with level surface ambulation about 100 feet using front- wheeled walker with standby assist and minimal cueing for step-through gait pattern. Good L quadriceps activation. Reported reduction in pain level to 3- 4/10 after walking. Denies headache, chest pain, and lightheadedness throughout activity. Stairs: Up and down 6 x 4 inch steps 4 x 6 inch steps of holding onto bilateral rails with step-to gait pattern requiring standby assist and minimal verbal cueing for correct technique. Balance: Static Sitting: Normal Dynamic Sitting: Normal Static Standing: Fair Dynamic Standing: Fair Special Tests: Mobility Limitations Standardized Measure [facility] AM-PAC 6 clicks Basic Mobility Inpatient Short Form: Raw Score: 24 CMS Score: 0% deficit Informed Consent/Education: Patient instructed in purpose of PT consult. Education and training on initial set of exercises that can be done at home have been discussed with patient and . states that she will make sure that exercises are done to ensure that knee range of motion and strength goals are achieved. Discussed [employer] [email or web address] download and use for increased compliance with exercise performance. Assessment: Maverick demonstrates functional mobility decline requiring the use of a front- wheeled walker for all mobility ADL performance to maximize independence and reduce fall risk at home. Will have full support of toward his knee rehabilitation. Patient presents with clinical signs and symptoms consistent with current/admitting diagnoses that have resulted to mobility limitations, gait instability, generalized weakness, and impairment of motor control as demonstrated by the following impairment level findings: 1. Decreased strength to left knee major muscle groups 2. Impaired standing balance 3. Limitation of joint range of motion in left knee Impairments are contributing to the following functional limitations: 1. Inability to safely ambulate without assistive device 2. Increase completion time for mobility ADL performance Patient is assessed as a 09464 moderate complexity based on the following: History: 46-year-old male with impairment level findings, functional limitations, and past medical history as indicated above Examination: Demonstrable impairment in strength, balance, and mobility level with underlying impairments and functional limitations as documented above Presentation: Evolving Decision Makin moderate complexity Goals: N/A. PT evaluation and 1-2 treatment sessions only for functional mobility training using recommended AD and for HEP instruction. Plan of Care/Treatment Plan: N/A. PT evaluation and 1-2 treatment session only for functional mobility training using recommended AD and for HEP instruction. DISCHARGE RECOMMENDATIONS: Home when medically cleared by orthopedic surgeon. Patient will from outpatient PT services in order to facilitate return to full independent ADL performance, community ambulation, and vocational activities. TREATMENT CODE/TIME: 79297 x 20 minutes, 39563 x 18 minutes beginning at 15:16 PM. Thank you for the opportunity to participate in the care of this patient. Melyssa Eller PT, DPT, CLT [facility] [place], [place]
== END 2022-02-07 16:30 | disposition home or self-care (01) ==
PROVIDERS: PCP Physician Assistant Medical; Visit Provider Student in an Organized Health Care Education/Training Program
PROC: (CPT 27447; principal; 2022-02-07 09:30)
PROC: (CPT 27447; 2022-02-07 09:30)
DX: M17.0 Bilateral primary osteoarthritis of knee (principal); E66.9 Obesity, unspecified; G47.33 Obstructive sleep apnea (adult) (pediatric); K21.9 Gastro-esophageal reflux disease without esophagitis; R73.03 Prediabetes; Z68.42 Body mass index [BMI] 45.0-49.9, adult
CPT/HCPCS: 27447; 20610; 76942; 97162; 97530; J1040; J1100; J2250; J2405

== ENCOUNTER 2022-02-20 14:55 | Outpatient (CLI) | payer OTHER, SELFPAY ==
--- NOTE | 2022-02-20 14:15 | DI.RAD_ITS ---
Exam(s) XR KNEE LT 1V XR STANDING ALIGNMENT EXAM: XR STANDING ALIGNMENT CLINICAL HISTORY: 1ST POST OP L TKA. TECHNIQUE: 2D digital imaging was performed. Standing AP views were performed from the pelvis throu gh the ankles. Lateral view left knee COMPARISON: CR XR STANDING ALIGNMENT from 02/03/2022 CR XR KNEE LT 1V from 02/20/2022 FINDINGS: BONES: No acute fracture is present. No bony destructive lesion is seen. The right femoral head proje cts approximately 8 millimeters superior to the left. JOINTS: Knees: Left total knee prosthesis. Satisfactory alignment. No abnormal bony lucencies.Right knee joint spaces are well maintained. The ankle and hip joints are unremarkable. SOFT TISSUE: Anterior soft tissue swelling. IMPRESSION: Left total knee prosthesis. Mild leg length discrepancy. DATA REPOSITORY: RADIATION DOSE DELIVERED:
== END 2022-02-20 14:56 | disposition home or self-care (01) ==
LOC: DIORS 14:55
PROVIDERS: PCP Physician Assistant Medical; Referring Provider Physician Assistant Medical; Visit Provider Student in an Organized Health Care Education/Training Program
DX: Z96.652 Presence of left artificial knee joint (principal); Z47.1 Aftercare following joint replacement surgery; M21.70 Unequal limb length (acquired), unspecified site; M79.89 Other specified soft tissue disorders
CPT/HCPCS: 73560; 77073

== ENCOUNTER 2022-05-02 09:22 | Outpatient (REF) | payer OTHER, SELFPAY ==
[2022-05-02 17:40] LABS: Anion Gap 8.1 mmol/L (3-11); BUN 23 mg/dL (7-18); CO2 28.9 mmol/L (21.0-32.0); Calcium 8.5 mg/dL (8.5-10.1); Calculated LDL 86 mg/dL (<100); Chloride 103 mmol/L (98-107); Cholesterol 154 mg/dL (<200); Glucose 134 mg/dL (74-106); HDL Cholesterol 52 mg/dL (40-60); Potassium 4.1 mmol/L (3.5-5.1); Sodium 140 mmol/L (136-145); Triglyceride 82 mg/dL (<150)
[2022-05-02 17:46] LABS: Hemoglobin A1C 6.2 % (<5.7)
[2022-05-03 18:13] LABS: PSA, Diagnostic 0.2 ng/mL (<=2.5)
== END 2022-05-02 09:23 | disposition home or self-care (01) ==
LOC: NCHCN 09:22
PROVIDERS: PCP Physician Assistant Medical; Visit Provider Physician Assistant Medical
DX: I10 Essential (primary) hypertension (principal); R73.03 Prediabetes; R97.20 Elevated prostate specific antigen [PSA]
CPT/HCPCS: 80048; 80061; 83036; 84153

== ENCOUNTER 2022-06-12 15:44 | Outpatient (CLI) | payer OTHER, SELFPAY ==
--- NOTE | 2022-06-12 15:37 | DI.RAD_ITS ---
Exam(s) XR KNEE LT 3V AP,LAT,HILTON EXAM: XR KNEE LT 3V AP,LAT,HILTON CLINICAL HISTORY: direct trauma, recent TKA. TECHNIQUE: 2D digital imaging was performed. Three views. COMPARISON: CR XR KNEE LT 1V from 02/20/2022 FINDINGS: There has been no change in the alignment of the total knee prosthesis or appearance of the surroundi ng bone. DATA REPOSITORY: RADIATION DOSE DELIVERED:
== END 2022-06-12 15:45 | disposition home or self-care (01) ==
LOC: DIORS 15:45
PROVIDERS: PCP Physician Assistant Medical; Referring Provider Physician Assistant Medical; Visit Provider Student in an Organized Health Care Education/Training Program
DX: Z96.652 Presence of left artificial knee joint (principal); S89.82XA Other specified injuries of left lower leg, initial encounter; X58.XXXA Exposure to other specified factors, initial encounter
CPT/HCPCS: 73562

== ENCOUNTER 2022-06-26 09:53 | Outpatient (CLI) | payer OTHER, SELFPAY ==
--- NOTE | 2022-06-26 09:15 | DI.RAD_ITS ---
Exam(s) XR KNEE LT 3V AP,LAT,HILTON EXAM: XR KNEE LT 3V AP,LAT,HILTON CLINICAL HISTORY: left knee injury. TECHNIQUE: 2D digital imaging was performed. Three images were obtained. AP, PA tunnel and lateral views were obtained. COMPARISON: CR XR KNEE LT 3V AP,LAT,HILTON from 06/12/2022 FINDINGS: BONES: There are stable post operative changes present. No fracture or dislocation. JOINTS: The orthopedic hardware is in good position. SOFT TISSUE: Normal. IMPRESSION: Stable postoperative changes. DATA REPOSITORY: RADIATION DOSE DELIVERED:
== END 2022-06-26 09:54 | disposition home or self-care (01) ==
LOC: DIORS 09:54
PROVIDERS: PCP Physician Assistant Medical; Referring Provider Physician Assistant Medical; Visit Provider Physician Assistant
DX: Z96.652 Presence of left artificial knee joint (principal); Z98.890 Other specified postprocedural states
CPT/HCPCS: 73562

== ENCOUNTER 2022-08-22 02:57 | Outpatient (CLI) | payer OTHER, SELFPAY ==
[2022-08-22 12:31] LABS: HCT 48.5 % (40.0-50.0)
[2022-08-27 11:20] LABS: Testosterone, Free 40.1 ng/dL (4.26-16.4); Testosterone, Total 1010 ng/dL (240-950)
== END 2022-08-22 02:58 | disposition home or self-care (01) ==
LOC: LOS 02:57
PROVIDERS: PCP Physician Assistant Medical; Visit Provider Physician Assistant Medical
DX: E29.1 Testicular hypofunction (principal); Z90.79 Acquired absence of other genital organ(s)
CPT/HCPCS: 36415; 84402; 84403; 85014

== ENCOUNTER 2022-08-31 11:28 | Outpatient (CLI) | payer OTHER, SELFPAY ==
--- NOTE | 2022-08-31 10:30 | DI.RAD_ITS ---
Exam(s) XR KNEE LT 3V AP,LAT,HILTON EXAM: XR KNEE LT 3V AP,LAT,HILTON CLINICAL HISTORY: eval painful L TKA. TECHNIQUE: 2D digital imaging was performed. Three views. COMPARISON: CR XR KNEE LT 3V AP,LAT,HLITON from 06/26/2022 FINDINGS: There has been no change in the total knee prosthesis or appearance of the surrounding bone. A joint effusion is seen. DATA REPOSITORY: RADIATION DOSE DELIVERED:
== END 2022-08-31 11:29 | disposition home or self-care (01) ==
LOC: DIORS 11:28
PROVIDERS: PCP Physician Assistant Medical; Referring Provider Physician Assistant Medical; Visit Provider Student in an Organized Health Care Education/Training Program
DX: T84.84XA Pain due to internal orthopedic prosthetic devices, implants and grafts, initial encounter; Z96.652 Presence of left artificial knee joint
CPT/HCPCS: 73562

== ENCOUNTER 2022-10-13 01:15 | Outpatient (CLI) | payer OTHER, SELFPAY ==
[2022-10-18 12:51] LABS: Testosterone, Total 583 ng/dL (240-950)
== END 2022-10-13 01:16 | disposition home or self-care (01) ==
PROVIDERS: PCP Physician Assistant Medical; Visit Provider Urology
DX: E29.1 Testicular hypofunction (principal)
CPT/HCPCS: 36415; 84403

== ENCOUNTER 2022-10-23 15:55 | Outpatient (CLI) | payer OTHER, SELFPAY ==
--- NOTE | 2022-10-23 15:18 | DI.RAD_ITS ---
Exam(s) XR KNEE LT 3V AP,LAT,HILTON EXAM: XR KNEE LT 3V AP,LAT,HILTON CLINICAL HISTORY: LEFT KNEE PAIN. TECHNIQUE: 2D digital imaging was performed. Three views. COMPARISON: CR XR STANDING ALIGNMENT from 02/20/2022 CR XR KNEE LT 1V from 02/20/2022 CR XR KNEE LT 3V AP,LAT,HILTON from 06/12/2022 CR XR KNEE LT 3V AP,LAT,HILTON from 08/31/2022 FINDINGS: There is a question of increased lucency seen adjacent to the prosthesis at the lateral aspect of the tibial component. The patellar and femoral components appear unchanged. A joint effusion is visibl e. IMPRESSION: Question of some increasing lucency at the lateral aspect of the tibial component of the prosthesis. DATA REPOSITORY: RADIATION DOSE DELIVERED:
== END 2022-10-23 15:56 | disposition home or self-care (01) ==
LOC: DIORS 15:55
PROVIDERS: PCP Physician Assistant Medical; Referring Provider Physician Assistant Medical; Visit Provider Student in an Organized Health Care Education/Training Program
DX: T84.84XA Pain due to internal orthopedic prosthetic devices, implants and grafts, initial encounter (principal); Z96.652 Presence of left artificial knee joint
CPT/HCPCS: 73562

== ENCOUNTER 2022-10-31 01:23 | Outpatient (CLI) | payer OTHER, SELFPAY ==
--- NOTE | 2022-10-31 10:25 | DI.MRI_ITS ---
Exam(s) MR LOWER JOINT RT WO EXAM: MR LOWER JOINT RT WO CLINICAL HISTORY: PAIN,TEAR MEDIAL MENISCUS RT KNEE, INTERNAL DERANGEMENT,M23.91,S83.241A. TECHNIQUE: Multiplanar multisequence MRI was performed. COMPARISON: MR MR LOWER JOINT RT WO from 07/30/2020 CR XR KNEE RT 3V AP,LAT,HILTON from 01/30/2022 FINDINGS: BONES: There is no fracture or contusion pattern. JOINTS: In the medial femoral tibial joint there are small peripheral osteophytes, mild subchondral e marian and cartilage thinning. There is a small joint effusion. TENDONS: Extensor mechanism: Unremarkable. Medial retinaculum: Unremarkable. Lateral retinaculum: Unremarkable. Popliteus: Unremarkable. MUSCLES: Unremarkable. MENISCI: There is degenerative signal seen in the body of the medial meniscus. No evidence of a tear . The lateral meniscus is unremarkable. SOFT TISSUES: There is edema seen in the soft tissues around the knee sparing the posterior soft tiss ues. LIGAMENTS: Anterior Cruciate: Unremarkable. Posterior Cruciate: Unremarkable. Medial Collateral:Unremarkable. Lateral Collateral: Unremarkable. OTHER: IMPRESSION: 1. No evidence of a meniscal or ligament tear. 2. Mild degenerative changes seen in the medial femoral tibial joint. 3. Mild edema seen in the soft tissues around the knee. No focal fluid collection is seen. Small gladys int effusion. DATA REPOSITORY:
== END 2022-10-31 01:43 ==
LOC: DI 01:24
PROVIDERS: PCP Physician Assistant Medical; Visit Provider Student in an Organized Health Care Education/Training Program
DX: M17.11 Unilateral primary osteoarthritis, right knee (principal)
CPT/HCPCS: 73721

== ENCOUNTER 2022-11-07 11:57 | Emergency (ER) | payer OTHER, SELFPAY ==
[2022-11-07 12:02] VITALS: BP 148/93; PULSE 92; RESP 14; TEMP 37.1; O2SAT 99
--- NOTE | 2022-11-07 13:00 | ED.GENADUL_ITS ---
Discharge Plan Disposition Patient Disposition: Home Condition: Good Discharge Details Clinical Impression: Finger laceration, Avulsion of nail of left thumb, Finger fracture, left Primary Care Provider: Pratima Fregoso ED Provider: Rosita Luong Home Meds and New Rx's Prescriptions: Continued diazepam 5 mg tablet 5 mg PO BID PRN (Reason: spams) Qty: 20 0RF mirtazapine 7.5 mg tablet 7.5 mg PO DAILY losartan 25 mg tablet 25 mg PO DAILY escitalopram oxalate 20 mg tablet 20 mg PO DAILY omeprazole 40 mg capsule,delayed release(DR/EC) 40 mg PO DAILY cholecalciferol (vitamin D3) 25 mcg (1,000 unit) capsule 25 mcg PO DAILY sildenafil 100 mg tablet 100 mg PO DIRECTED testosterone cypionate 200 mg/mL oil 200 mg IM Q2W Patient Comments: INJECT 1 ML INTO THE MUSCLE EVERY 14 DAYS acetaminophen 500 mg tablet 1,000 mg PO TID Qty: 90 3RF Discharge Instructions Instructions: Finger Fracture (ED), Finger Laceration (ED) Additional Instructions: As we discussed, there is concern for a small nondisplaced fracture at the base of the end of your thumb. Please continue with splint until reevaluated by orthopedics. Please call orthopedics to schedule follow-up appointment, number listed below. Your laceration was closed with adhesive as it seems to be more an avulsed area of skin rather than deep laceration. Please allow this to come off naturally. Do not pick or pull at this. Please keep covered with Band-Aid to keep the area clean. Keep dry today but you may wash with running water and soap tomorrow. Monitor for signs infection including redness, warmth, drainage, increased pain, fever/chills. If you develop these or other new/worsening symptoms please seek care urgently as again. Otherwise, please follow-up with orthopedics as above. Referrals: Rahul Osorio MD [ [facility] STAFF PHYSICIAN] - Medical Decision Making Patient is a pleasant 47 year old RHD male, presenting today with c/c of laceration to left thumb. UTD tetanus. No other injury. States he was using a pneumatic chisel to try and take apart a kwaku plow truck. Accidentally struck his finger. Tetanus was completed last year. Denies any numbness or tingling. On exam, patient appears nontoxic. He has wound through the distal aspect of the nail in a curvilinear fashion. Also has apparent laceration slightly distal to this with a flap of skin coming upward. We will need to remove the small amount of nail that is still hanging on to be able to examine this more closely. Also considered fracture given the crush injury mechanism. Will obtain x-ray of the finger. There is a subtle nondisplaced fracture in the lateral aspect the base of the distal phalanx of the thumb.? Fracture line violates the articular surface.? No radiopaque foreign body.? No incidental osseous lesions.? Remainder of the hand appears unremarkable. IMPRESSION: There is nondisplaced fracture of the base of distal phalanx of the thumb. These findings with the patient. As this is not near the area of laceration, I did question if this was old injury or may be an over read. However, patient does endorse some discomfort over this area with palpation. This is not contiguous with the laceration so not treated as such. Will refer to or thopedics for continued management of the fracture. In regard to the laceration, patient I discussed risk/benefits as well as expected procedural steps involved in removal of the small amount of nail that remains adhered for further evaluation of the underlying nailbed and associated structures. Likely will require suture closure. Patient I discussed this at length and he is in agreement with this plan. Using standard sterile technique. A digital block was performed with 1% lidocaine plain. Patient tolerated this well and allowed for good anesthetic effect that the wound may be assessed and manipulated without discomfort. Wound was explored to base in a bloodless field with no foreign body or debris noted. A tourniquet was used to help with this. Once the nail was able to be removed, it was noted that the skin itself was avulsed rather than a deep laceration. He reports now that he was using the chisel at a sharp angle and may have gotten very obliquely across the nail rather than coming straight down. There is no laceration that needs to be closed as the tissue has been completely avulsed in this area. The area was copiously irrigated and a thin layer of adhesive was a pplied to allow for good healing and hopefully help with some of his discomfort. He will use splint to help with fracture. Return precautions were discussed. I did encourage follow-up with orthopedics, referral has been sent. He will call to schedule follow-up appointment. Return precautions were discussed, particular signs symptoms of infection. All of his questions and Concerns were addressed and he is in agreement this plan. HPI General Date/Time Provider Initiated Documentation: 11/07/22 12:57 . Limitations to Documentation: no limitations . Information obtained by: patient and RN notes reviewed . History of Present Ill seng 47 year old M presents to the emergency department with the chief complaint of left thumb laceration, described as moderate, with intensity rated at 7. Quality is described as burning, and is localized to the upper extremity. Patient reports no radiation. Patient started experiencing this minute(s) and it has been constant. Immobilization improves symptom(s), Mo vement worsens symptoms . Patient notes no other symptoms.. Patient did receive the following treatments prior to arrival, none Related Data Home Medications Medication Instructions Recorded Confirmed escitalopram oxalate 20 mg tablet 20 mg PO DAILY 07/12/20 10/23/22 losartan 25 mg tablet 25 mg PO DAILY 07/12/20 10/23/22 omeprazole 40 mg capsule,delayed 40 mg PO DAILY 07/12/20 10/23/22 release sildenafil 100 mg tablet 100 mg PO DIRECTED 09/01/20 10/23/22 testosterone cypionate 200 mg/mL 200 mg IM Q2W 09/01/20 10/23/22 intramuscular oil cholecalciferol (vitamin D3) 25 25 mcg PO DAILY 03/04/21 10/23/22 mcg (1,000 unit) capsule acetaminophen 500 mg tablet 1,000 mg PO TID #90 tabs 02/07/22 10/23/22 diazepam 5 mg tablet 5 mg PO BID PRN spams #20 tabs 03/08/22 10/23/22 mirtazapine 7.5 mg tablet 7.5 mg PO DAILY 03/20/22 10/23/22 Previous Rx's Medication Instructions Recorded acetaminophen 500 mg tablet 1,000 mg PO TID #90 tabs 02/07/22 diazepam 5 mg tablet 5 mg PO BID PRN spams #20 tabs 03/08/22 Allergies Allergy/AdvReac Type Severity Reaction Status Date / Time trazodone Allergy Unknown unknown Verified 10/23/22 15:08 General Stated Complaint: Laceration JUAN: 4 Review of Systems Constitutional Constitutional: Reports as per HPI, Denies chills and Denies fever(s) Musculoskeletal Musculoskeletal: Reports as per HPI Integumentary/Breasts Skin/Breast: Reports as per HPI Neurologic Neurologic: Reports as per HPI, Denies sensory deficit and Denies paresthesias PFSH All Active Problems (Updated 11/07/22 @ 15:32 by NANCIE Douglas) Finger laceration (Acute) Avulsion of nail of left thumb (Acute) Finger fracture, left (Acute) Painful total knee replacement, left (Acute) MCL sprain of left knee (Acute) Tear of medial meniscus of right knee (Acute) Depo-Medrol injection: 02/07/2022; 09/13/2021; 09/01/2020 History of total left knee replacement (TKR) (Acute 02/07/22) Olecranon bursitis of left elbow (Acute) Prominent osteophyte Neuritis of right ulnar nerve (Acute) Pelvic pain in male (Acute) Bilateral varicoceles (Acute) Scrotal abscess (Acute) Internal derangement of right knee (Acute) Atypical nevus (Acute) Perirectal abscess (Acute) GERD (gastroesophageal reflux disease) (Chronic) Prediabetes (Acute) Anxiety (Chronic) MONICA (obstructive sleep apnea) (Chronic) Shortness of breath (Acute) Myalgia (Acute) Insomnia (Acute) Obesity (Chronic) Left knee DJD (Acute) Depo-Medrol: 08/01/2021; 11/25/2020 Medical History Chest discomfort Per pt. states it was a pulled muscle HTN (hypertension) Hypogonadism Neuropathy Plantar fasciitis Surgical History H/O vasectomy History of back surgery Per pt. they removed bone spurs from my lower back History of hydrocelectomy History of orchiectomy History of tonsillectomy adnoids Hx of colonoscopy S/P arthroscopic partial medial meniscectomy LEFT DOS: 09/01/20 S/P surgical removal of pilonidal cyst Family History Other Cancer Diabetes Heart disease Social History Smoking/Tobacco Use Status: Never Smoking risk assessment performed?: Yes Alcohol Intake: current Alcohol Intake frequency: a few times a week Alcohol type: beer Drug use: Never Substance use type: does not use Details: ALCOHOL: t-2, 2 beers Current gender identity: male Do you feel safe at home: Yes Do you feel safe in your relationship?: Yes Additional Social history: unable to assess privately Exam Const General: cooperative, healthy appearing, comfortable, no acute distress and well developed Nutritional Appearance: well nourished and overweight Orientation: alert and awake Resp Effort & Inspection: normal respiratory effort, able to speak in complete sentences and no respiratory distress Cardio Rate: regular rate Rhythm: regular rhythm Skin Trauma: laceration (avulsion left thumb) Neuro General: patient alert and patient awake Cognition: normal cognition Speech: speech normal Gait: normal gait Sensory Exam: no sensory deficits noted Extrem Hand/finger images: 1. Nail is broken, there is appear to be a laceration that extends beyond the tip of the nail as well with a small flap of skin. Nail remains intact, anchored down laterally but is easily lifted up. Sensation is intact. Intact capillary refill. Good range of motion. Psych Appearance: grossly normal and well kempt Mental Status: mental status grossly normal Speech and Movement: speech and movement normal Course Vital Signs Vital signs: Vital Signs Temperature 37.1 C 11/07/22 12:02 Pulse 92 H 11/07/22 12:02 Respiratory Rate 14 11/07/22 12:02 Blood Pressure 148/93 H 11/07/22 12:02 Pulse Oximetry 99 11/07/22 12:02 Temperature 37.1 C 11/07/22 12:02 Temperature Source Oral 11/07/22 12:02 Pulse 92 H 11/07/22 12:02 Respiratory Rate 14 11/07/22 12:02 Respiratory Effort Normal, Non-Labored 11/07/22 12:10 Blood Pressure 148/93 H 11/07/22 12:02 Blood Pressure Position Sitting 11/07/22 12:02 Pulse Oximetry 99 11/07/22 12:02 Oxygen Delivery Method Room Air 11/07/22 12:02 Oxygen Flow Rate 0 11/07/22 12:02 Pain Level 7 11/07/22 12:12
--- NOTE | 2022-11-07 13:55 | DI.RAD_ITS ---
Exam(s) XR THUMB LT EXAM: XR THUMB LT CLINICAL HISTORY: crush injury distally. TECHNIQUE: 2D digital imaging was performed. COMPARISON: No exams were available for comparison FINDINGS: 3 views There is a subtle nondisplaced fracture in the lateral aspect the base of the distal phalanx of the t humb. Fracture line violates the articular surface. No radiopaque foreign body. No incidental osse ous lesions. Remainder of the hand appears unremarkable. IMPRESSION: There is nondisplaced fracture of the base of distal phalanx of the thumb. DATA REPOSITORY: RADIATION DOSE DELIVERED:
[2022-11-07 15:56] VITALS: BP 131/89; PULSE 89; RESP 20; TEMP 37.4; O2SAT 98
== END 2022-11-07 15:59 | disposition home or self-care (01) ==
PROVIDERS: Emergency Provider Physician Assistant; PCP Physician Assistant Medical
DX: S62.525A Nondisplaced fracture of distal phalanx of left thumb, initial encounter for closed fracture (principal); S61.012A Laceration without foreign body of left thumb without damage to nail, initial encounter; W22.8XXA Striking against or struck by other objects, initial encounter; I10 Essential (primary) hypertension
CPT/HCPCS: 64450; 99283; 73140; 99282

== ENCOUNTER 2022-12-08 01:39 | Outpatient (CLI) | payer OTHER, SELFPAY ==
[2022-12-12 12:05] LABS: Testosterone, Total 254 ng/dL (240-950)
== END 2022-12-08 01:40 | disposition home or self-care (01) ==
LOC: LOS 01:40
PROVIDERS: PCP Physician Assistant Medical; Visit Provider Urology
DX: E29.1 Testicular hypofunction (principal)
CPT/HCPCS: 36415; 84403

== ENCOUNTER 2023-03-09 08:42 | Outpatient (CLI) | payer OTHER, SELFPAY ==
--- NOTE | 2023-03-09 08:30 | DI.RAD_ITS ---
Exam(s) XR KNEE LT 2V AP,LAT EXAM: XR KNEE LT 2V AP,LAT INDICATION: left knee pain. COMPARISON: CR XR KNEE LT 3V AP,LAT,HILTON from 10/23/2022 TECHNIQUE: 2D digital imaging was performed. Two views. FINDINGS: There has been no change in the alignment of the total knee prosthesis. There is again a small area of lucency seen at the lateral aspect of the tibial component however this appears stable over multip le exams. Small joint effusion is seen. DATA REPOSITORY: RADIATION DOSE DELIVERED:
--- NOTE | 2023-03-09 08:30 | DI.RAD_ITS ---
Exam(s) XR KNEE RT 3V AP,LAT,HILTON EXAM: XR KNEE RT 3V AP,LAT,HILTON CLINICAL HISTORY: right knee pain. TECHNIQUE: 2D digital imaging was performed. Three views. COMPARISON: CR XR STANDING ALIGNMENT from 02/20/2022 MR MR LOWER JOINT RT WO from 10/31/2022 FINDINGS: BONES: No acute fracture is present. No bony destructive lesion is seen. JOINTS: The knee is normally aligned. Small joint effusion is seen. Slight narrowing of the medial femoral tibial joint. Mild periarticular spurring. There are small bony excrescences from the anter ior and posterior portions of the tibia in the midline. SOFT TISSUE: Normal. IMPRESSION: Mild degenerative changes. Small joint effusion. DATA REPOSITORY: RADIATION DOSE DELIVERED:
== END 2023-03-09 08:43 | disposition home or self-care (01) ==
LOC: DIORS 08:42
PROVIDERS: PCP Physician Assistant Medical; Referring Provider Physician Assistant Medical; Visit Provider Student in an Organized Health Care Education/Training Program
DX: T84.84XA Pain due to internal orthopedic prosthetic devices, implants and grafts, initial encounter; Z96.652 Presence of left artificial knee joint; Z47.1 Aftercare following joint replacement surgery
CPT/HCPCS: 73562; 73560

== ENCOUNTER 2023-03-28 04:30 | Outpatient (CLI) | payer OTHER, SELFPAY ==
[2023-03-28 12:18] LABS: HGB 15.9 g/dL (13.5-17.5); MCH 29.7 pg (27.0-33.0); MCHC 33.8 % (32.0-36.0); MCV 88 fL (80-95); MPV 10.5 fL (8.0-11.0); Platelet Count 223 10^3/uL (130-400); RBC 5.35 10^6/uL (4.36-5.78); RDW 12.1 % (11.8-14.1); RDW-SD 38.7 fL; WBC 7.13 10^3/uL (4.4-10.8)
[2023-04-01 16:26] LABS: Testosterone, Total 307 ng/dL (240-950)
== END 2023-03-28 04:31 | disposition home or self-care (01) ==
PROVIDERS: PCP Physician Assistant Medical; Visit Provider Urology
DX: E29.1 Testicular hypofunction (principal)
CPT/HCPCS: 36415; 84403; 85027

== ENCOUNTER 2023-05-02 18:45 | Outpatient (REF) | payer OTHER, SELFPAY ==
[2023-05-02 21:53] LABS: Hemoglobin A1C 6.5 % (<5.7)
[2023-05-02 22:00] LABS: ALT 47 U/L (16-63); AST 25 U/L (15-37); Albumin 4.1 g/dL (3.4-5.0); Alkaline Phosphatase 77 U/L (46-116); Anion Gap 9.3 mmol/L (3-11); BUN 20 mg/dL (7-18); Bilirubin, Total 0.8 mg/dL (0.2-1.0); CO2 26.7 mmol/L (21.0-32.0); Calcium 9.3 mg/dL (8.5-10.1); Chloride 101 mmol/L (98-107); Estimated GFR 93.42 (mL/min/1.73m2); Glucose 113 mg/dL (74-106); Sodium 137 mmol/L (136-145); TSH (W/Ref FT4) 2.84 uIU/mL (0.36-3.74); Total Protein 7.6 g/dL (6.4-8.2)
== END 2023-05-02 18:46 | disposition home or self-care (01) ==
LOC: NCHCN 18:45
PROVIDERS: PCP Physician Assistant Medical; Visit Provider Physician Assistant Medical
DX: R73.03 Prediabetes (principal); I10 Essential (primary) hypertension
CPT/HCPCS: 80053; 83036; 84443

== ENCOUNTER 2023-06-07 04:57 | Outpatient (CLI) | payer OTHER, SELFPAY ==
[2023-06-07 10:19] LABS: HCT 43.4 % (40.0-50.0); HGB 14.9 g/dL (13.5-17.5); MCH 29.9 pg (27.0-33.0); MCHC 34.3 % (32.0-36.0); MCV 87 fL (80-95); MPV 9.5 fL (8.0-11.0); Platelet Count 225 10^3/uL (130-400); RBC 4.99 10^6/uL (4.36-5.78); RDW 12.6 % (11.8-14.1); RDW-SD 39.7 fL; WBC 8.33 10^3/uL (4.4-10.8)
[2023-06-07 11:23] LABS: Anion Gap 9.1 mmol/L (3-11); BUN 22 mg/dL (7-18); CO2 27.9 mmol/L (21.0-32.0); CREATININE 0.9 mg/dL (0.70-1.30); Calcium 9.6 mg/dL (8.5-10.1); Chloride 102 mmol/L (98-107); Estimated GFR 106.01 (mL/min/1.73m2); Glucose 109 mg/dL (74-106); Sodium 139 mmol/L (136-145)
[2023-06-12 12:13] LABS: Testosterone, Total 72 ng/dL (240-950)
== END 2023-06-07 04:58 | disposition home or self-care (01) ==
LOC: LBO 04:57
PROVIDERS: Urology; PCP Physician Assistant Medical; Visit Provider Student in an Organized Health Care Education/Training Program
DX: M17.11 Unilateral primary osteoarthritis, right knee (principal); M25.561 Pain in right knee; Z01.818 Encounter for other preprocedural examination; Z01.812 Encounter for preprocedural laboratory examination
CPT/HCPCS: 36415; 80048; 84403; 85027

== ENCOUNTER 2023-06-07 14:58 | Outpatient (CLI) | payer OTHER, SELFPAY ==
--- NOTE | 2023-06-07 08:30 | DI.RAD_ITS ---
Exam(s) XR STANDING ALIGNMENT EXAM: XR STANDING ALIGNMENT CLINICAL HISTORY: PRE OP R TKA. TECHNIQUE: 2D digital imaging was performed. COMPARISON: CR XR STANDING ALIGNMENT from 02/20/2022 FINDINGS: 3 views Left hip prosthesis again noted and appears satisfactory. Mild narrowing of the medial compartment o f the right knee noted, similar to previous. Lateral compartment of the right knee exhibits normal h eight. Hips appear unremarkable. Ankles unremarkable. Bone density normal. No osseous lesions. IMPRESSION: As above. DATA REPOSITORY: RADIATION DOSE DELIVERED:
== END 2023-06-07 14:59 | disposition home or self-care (01) ==
LOC: DIORS 14:59
PROVIDERS: PCP Physician Assistant Medical; Visit Provider Physician Assistant
DX: M17.11 Unilateral primary osteoarthritis, right knee (principal); Z01.818 Encounter for other preprocedural examination; Z96.642 Presence of left artificial hip joint
CPT/HCPCS: 77073

== ENCOUNTER 2023-06-13 07:12 | Day surgery (SDC) | payer OTHER, SELFPAY ==
[2023-06-13] VITALS (9 sets, daily range): BP systolic 126–148; BP diastolic 77–98; PULSE 68–89; RESP 17–19; TEMP 36.1–37.1; O2SAT 95–100; BMI 48.1
[2023-06-13] MEDS: Celecoxib 200 MG CAP 400 MG PO (07:33)
[2023-06-13] MEDS: Acetaminophen 500 MG TAB 1000 MG PO (07:33)
[2023-06-13] MEDS: Gabapentin 300 MG CAP PO (07:34)
[2023-06-13] MEDS: Lactated Ringers 1,000 ML 80 ML IV (07:46)
--- NOTE | 2023-06-13 07:59 | W.ANESPRE ---
General Info Date of Service Date Performed: 06/13/23 Height: 5 ft 9 in Weight: 147.8 kg Body Mass Index (BMI): 48.1 Surgical Procedure: Operation Date: 06/13/23 09:55 Proposed Procedure Side Surgeon p Knee Total Arthroplasty, Stemmed Tibia Right Rahul Osorio MD Meds Allergies and Home Medications Allergies Allergy/AdvReac Type Severity Reaction Status Date / Time trazodone Allergy Unknown unknown Verified 06/13/23 07:29 Home Medication Medication Instructions Recorded escitalopram oxalate 20 mg tablet 20 mg PO DAILY 07/12/20 losartan 25 mg tablet 25 mg PO DAILY 07/12/20 omeprazole 40 mg capsule,delayed 40 mg PO DAILY 07/12/20 release sildenafil 100 mg tablet 100 mg PO DIRECTED 09/01/20 testosterone cypionate 200 mg/mL 200 mg IM Q2W 09/01/20 intramuscular oil cholecalciferol (vitamin D3) 25 25 mcg PO DAILY 03/04/21 mcg (1,000 unit) capsule mirtazapine 7.5 mg tablet 7.5 mg PO DAILY 03/20/22 dulaglutide 1.5 mg/0.5 mL 1.5 mg subcut QWEEK 06/05/23 subcutaneous pen injector ([facility]) acetaminophen 500 mg tablet 1,000 mg PO TID #90 tabs 06/13/23 aspirin 81 mg tablet,delayed 81 mg PO BID #60 tabs 06/13/23 release celecoxib 200 mg capsule 200 mg PO BID #60 caps 06/13/23 dexamethasone 4 mg tablet 4 mg PO DAILY #2 tabs 06/13/23 gabapentin 300 mg capsule 300 mg PO QHS #14 caps 06/13/23 oxycodone 5 mg tablet 5 mg PO Q4H PRN pain #20 tabs 06/13/23 Current Visit Medications: Current Medications Generic Name Dose Route Start Last Admin Trade Name Freq PRN Reason Stop Dose Admin Acetaminophen 1,000 mg 06/13/23 06:00 06/13/23 07:33 Acetaminophen 500 Mg Tab PO 06/13/23 16:00 1,000 mg PREOP WILLARD Administration Acetaminophen 1,000 mg 06/13/23 07:33 Acetaminophen 500 Mg Tab PO 07/13/23 07:32 TID PRN PRN Analgesia Celecoxib 400 mg 06/13/23 06:00 06/13/23 07:33 Celecoxib 200 Mg Cap PO 06/13/23 16:00 400 mg PREOP WILLARD Administration Docusate Sodium 100 mg 06/13/23 07:33 Docusate Sodium 100 Mg Cap PO 07/13/23 07:32 BID PRN PRN Constipation Gabapentin 300 mg 06/13/23 06:00 06/13/23 07:34 Gabapentin 300 Mg Cap PO 06/13/23 16:00 300 mg PREOP WILLARD Administration Tranexamic Acid 1,000 mg/ 60 mls @ 360 mls/hr 06/13/23 06:00 Sodium Chloride IVPB 06/13/23 16:00 PREOP WILLARD Cefazolin Sodium 3,000 mg/ 100 mls @ 200 mls/hr 06/13/23 06:00 Sodium Chloride IVPB 06/13/23 18:00 PREOP WILLARD Ringer's Solution 1,000 mls @ 80 mls/hr 06/13/23 07:45 06/13/23 07:46 IV 07/13/23 07:44 80 mls/hr INFUSION WILLARD Administration Oxycodone HCl 0 mg 06/13/23 07:33 Oxycodone 5 Mg Tab PO 07/13/23 07:32 Q3H PRN PRN Pain Polyethylene Glycol 17 gm 06/13/23 07:33 Polyethylene Glycol 3350 17 Gm Packet PO 07/13/23 07:32 BID PRN PRN Constipation PFSH Active Problems Active Problems: Problem Status Onset Code Olecranon bursitis of left elbow M70.22 Neuritis of right ulnar nerve G56.21 Pelvic pain in male R10.2 Bilateral varicoceles I86.1 Scrotal abscess N49.2 Internal derangement of right knee M23.91 Tear of medial meniscus of right knee S83.241A Atypical nevus D22.9 Perirectal abscess K61.1 GERD (gastroesophageal reflux disease) K21.9 Prediabetes R73.03 Anxiety F41.9 MONICA (obstructive sleep apnea) G47.33 Shortness of breath R06.02 Myalgia M79.10 Insomnia G47.00 Obesity E66.9 Left knee DJD M17.12 History of total left knee replacement (TKR) 02/07/22 Z96.652 MCL sprain of left knee S83.412A Painful total knee replacement, left T84.84XA, Z96.652 Primary osteoarthritis of right knee M17.11 Medical History Medical History Chest discomfort Per pt. states it was a pulled muscle HTN (hypertension) Hypogonadism Neuropathy Plantar fasciitis Surgical History Surgical History H/O vasectomy History of back surgery Per pt. they removed bone spurs from my lower back History of hydrocelectomy History of orchiectomy History of tonsillectomy adnoids History of total left knee replacement Hx of colonoscopy S/P arthroscopic partial medial meniscectomy LEFT DOS: 09/01/20 S/P surgical removal of pilonidal cyst Tobacco Smoking/Tobacco Use Status: Never Alcohol Alcohol Intake: current Alcohol intake frequency: a few times a week Alcohol type: beer Substance Use Substance use: Never Substance use type: does not use Vital Signs and Lab Results Vital Signs Most Recent Vital Signs in EMR: Most Recent Vital Signs Temp Pulse Resp BP Pulse Ox 36.4 C L 84 17 144/84 H 100 06/13/23 07:23 06/13/23 07:23 06/13/23 07:23 06/13/23 07:23 06/13/23 07:23 Lab Results Blood Type / Crossmatch: No Data to Display Complete Blood Count: White Blood Count 8.33 10^3/uL (4.4-10.8) 06/07/23 10:05 Red Blood Count 4.99 10^6/uL (4.36-5.78) 06/07/23 10:05 Hemoglobin 14.9 g/dL (13.5-17.5) 06/07/23 10:05 Hematocrit 43.4 % (40.0-50.0) 06/07/23 10:05 Platelet Count 225 10^3/uL (130-400) 06/07/23 10:05 Complete Metabolic Panel: Sodium 139 mmol/L (136-145) 06/07/23 10:05 Potassium 4.0 mmol/L (3.5-5.1) 06/07/23 10:05 Chloride 102 mmol/L (98-107) 06/07/23 10:05 Carbon Dioxide 27.9 mmol/L (21.0-32.0) 06/07/23 10:05 BUN 22 mg/dL (7-18) H 06/07/23 10:05 Creatinine 0.9 mg/dL (0.70-1.30) 06/07/23 10:05 Est GFR (CKD-EPI 2020) 106.01 (mL/min/1.73m2) 06/07/23 10:05 Calcium 9.6 mg/dL (8.5-10.1) 06/07/23 10:05 Glucose 109 mg/dL (74-106) H 06/07/23 10:05 Liver Function Panel: No Data to Display Coagulation Panel: No Data to Display Cardiac Panel: No Data to Display Arterial Blood Gas: No Data to Display Venous Blood Gas: No Data to Display Pancreas Panel: No Data to Display Thyroid Panel: No Data to Display Infectious Disease: No Data to Display Blood Cultures: No Data to Display Toxicology Panel: No Data to Display Anesthesia Assessment and Plan Anesthesia History Personal History: No History of Anesthesia Complications Family History: No Family History of Anesthesia Complications Exercise Tolerance Exercise Tolerance: Metabolic Equivalents>4 Pertinent Negatives Pertinent Negatives: No Symptoms of GERD, No Major Cardiovascular Symptoms or Complaints and No Major Pulmonary Symptoms or Complaints Cardiac & Pulmonary Exam Cardiac Exam: Normal S1/S2 Heart Sounds Pulmonary Exam: Clear Bilateral Breath Sounds Implantable Cardiac Device Does patient have a Pacemaker or an ICD?: No Airway Exam Known Difficult Airway: No Mallampati Class: 1 Mouth Opening: Normal (> 3cm) Thyromental Distance: Greater than 3 cm Neck Range of Motion: Full ROM Neck Circumference: Thick Teeth Condition: Normal Dentition ASA Classification ASA Score: ASA 3 Emergency Case?: No NPO Status NPO Status: NPO Clears >2 hours, Solids >8 hours Anesthesia Plan Resuscitation Status: Full Code Anesthesia Technique: Spinal Anesthesia Airway Planned: Natural Airway Pain Management: Surgeon and patient request nerve block Monitors Used: Standard Monitors
[2023-06-13] MEDS: ceFAZolin 3,000 MG in Normal Saline 100 ML 200 MG IVPB (09:16)
--- NOTE | 2023-06-13 10:03 | W.ANESNERVE ---
Nerve Block Single Injection Procedure Date and Time Date Performed: 06/13/23 Procedure Start: 08:20 Location Where Procedure Performed Procedure Location: Day Surgery Unit Reason Performed: Postoperative Analgesia Requesting Provider: Rahul Osorio Timeout Performed Timeout Performed: Yes Monitoring Used ECG, Blood Pressure, SpO2 and See EMR for corresponding vital signs Sterility Sterility: Hand Hygiene, Surgical Cap, Surgical Mask, Sterile Gloves and Chlorhexidine Sedation Given During Procedure Sedation Given (Indicate Dose Given): No Sedation given Patient Mental Status Patient Mental Status: Awake Nerve Block 1st Nerve Block: Laterality: Right Block Type: Adductor Canal Ultrasound Image Saved?: Yes Needle / Catheter Used: 100mm SonoPlex II Local Anesthetic Bolus (Indicate Dose Given): Lidocaine used for local infiltration of skin, Injected in 3-5ml increments after negative blood aspiration and Bupivacaine 0.25% Dose:: 20ml Additives (Indicate Dose Given): None Ultrasound: Sterile probe cover and gel used Nerve Stimulator: Not Used Paresthesia: None Procedure Tolerated: No Complications and Patient tolerated well Procedure Outcome: Successful Performed By: Librado Carter
--- NOTE | 2023-06-13 10:55 | W.PM.OP ---
Date of service: 06/13/23 Time of Service: 10:40 Operative Note Operative Note DATE OF PROCEDURE: 06/13/23 PRE-OP DIAGNOSIS: Right Knee Osteoarthritis POST-OP DIAGNOSIS: same PROCEDURE: Right Total Knee Replacement SURGEON: Rahul Osorio MANAGER TRADE: Robert Askew ANESTHESIA TYPE: Spinal Refer to Anesthesia Record ESTIMATED BLOOD LOSS: 100 PATHOLOGY: none sent TOURNIQUET TIME: 0 COMPLICATIONS: None Patient was transported to: PACU Patient's condition: stable Implants: 1. Depuy Attune Cementless Cruciate Retaining Femoral Component, Size 8 2. Depuy Attune Cementless Fixed Bearing Tibial Component, Size 6 3. Depuy Attune 8x5 CR/FB Poly 4. Depuy Attune Patellar Component, Size 38 Indications: I have seen Arian in clinic for symptoms of knee arthritis, confirmed with radiographic findings. He has exhausted nonoperative methods and was having significant limitations in daily function and desired better function and less pain. I discussed the technical details of a knee replacement. I explained the risks of the procedure to include, but not limited to, bleeding, infection, pain, stiffness, fracture, damage to nerves and vessels, damage to muscles and tendons, loosening, need for repeat procedure, blood clot and cardiopulmonary demise. Despite these risks, Arian elected to proceed. Findings: There was notable chondromalacia of the central patella as well as the central weightbearing portion of the medial femur. Procedure Description: Arian was greeted in the preoperative holding area where the correct side was identified and marked. The consent was reviewed with the patient and signed. The history and physical was updated. All questions were answered. Preoperative medications were administered: Acetaminophen 1000mg, Celebrex 400mg, and Gabapentin 300mg. An adductor canal block was then administered by the anesthesia team in the PACU. Arian was taken back to the operating room. A spinal anesthestic was then administered. The patient was placed into the supine position on the operating room table. A nonsterile tourniquet was placed high onto the leg but only used for cementing. Posts were placed for positioning during the procedure. All bony prominences were well padded. Prophylactic antibiotics in the form of Cefazolin were administered. 1g of Tranxemic Acid was given intravenously within 30 minutes of incision. The right leg was then prepped with Chloraprep and draped in a standard fashion with impervious stockinette. A second prep with Chloraprep was performed prior to application of Iodine impregnated skin protection. A timeout to confirm correct identity, side and site, procedure, allergies, anesthesia, and medical concerns was performed. With the knee in some flexion, a midline incision was made overlying the knee. Full thickness skin flaps were raised once the extensor mechanism was encountered. These were raised medially and laterally. Any bleeding was controlled with electrocautery. Once the extensor mechanism was fully exposed, a medial parapatellar arthrotomy was performed in a flexed position. All bleeding from the arthrotomy and the geniculate arteries was coagulated. A medial subperiosteal peel was performed with electrocautery to the midcoronal plane. Due to the significant varus deformity the entire medial tibial plateau was exposed. The fat pad was removed while keeping the patellar tendon protected. The anterior distal femur synovium was removed for later visualization. The ACL and PCL were resected and the anterior horn of the lateral meniscus was transected. The knee was then flexed with the patella everted. Large osteophytes from the tibia were removed. Large osteophytes from the femur were removed. Using a step drill, and based on preoperative templating, the femoral canal was entered. This was done with a step drill without any difficulty. The intramedullary distal femoral cut guide was inserted, set to a 4 degree valgus cut and 9mm cut thickness. The distal femoral cut guide was then held in position and pinned. With the soft tissues protected, the distal cut was performed. This was passed over a few times to ensure a planar cut. I then turned attention to the tibia. The extramedullary guide was placed onto the leg. The distal aspect was slid medial to adjust for position of center of ankle and stay in line with shaft of the tibia. Approximately 3-5 degrees of posterior slope was kept in the proximal cutting guide. The center of the guide was aligned with the PCL. The stylus was used to assess cut thickness. The medial side, most involved side, was set for a 4mm cut. This was then held in position and pinned into place with 2 additional pins and a cross pin for stability. The medial and lateral collateral ligaments were protected and the cut was performed. With this completed, it was assessed and noted to be of appropriate dimensions. The guide was removed. A spacer block was inserted and the knee was brought into extension. The 5mm spacer block provided full extension, without hyperextension and with stability of both the medial and lateral collateral ligaments was assessed. The pins from the femur and the tibia were then removed. The distal femur was then sized. The anterior stylus was placed onto the lateral ridge of the anterior femur. This indicated a size 8 femur. The external rotation of the guide was adjusted to 3 degrees to match the epicondylar axis, perpendicular to Bossman?s line. The 4-in-1 cutting guide was the placed. The posterior medial femur cut was evaluated and appeared of good thickness. The spacer block was inserted underneath the cutting guide and stability was confirmed in 90 degrees of flexion. An kaushal wing was used to confirm appropriate position of the anterior cut to avoid notching. This cutting guide was ensured to be flush on the cut surface and then pinned into place with headed pins. While protecting the soft tissues, quad tendon, and collateral ligaments, the anterior and posterior cuts were performed with a saw. The central two pins were removed and the posterior and anterior chamfers were cut next. The notch-cutting guide was placed. This was pinned to lateralize the femoral component as much as possible while keeping it flush on the cut surface. This was then pinned into position. A reciprocating saw was used to make the notch cut. A rasp smoothed the cut surfaces. The medial and lateral menisci were removed. A trial femoral component was then inserted, impacted down to the cut surfaces, and the lug holes were drilled. A provisional trial tibial component was placed and the knee was brought through range of motion. There was noted to be excellent extension and flexion. There was no significant instability. The patella was tracking without thumbs. A size 5mm polyethylene component provided the best range of motion and stability with less than 2mm gapping with medial and lateral stress and full extension without significant hyperextension. The tibial cut surface was fully exposed. The tibia was then sized as a 6. The tibia had been previously marked during trialing to correspond to the center of the tibial component to help with rotation. The trial was aligned to this robert, approximately rotated to the medial 1/3rd of the tibial tubercle. The trial was pinned into place. The tibia was prepared with a reamer and a keel punch and lug holes. The knee was then brought into extension and the patella was measured as 28mm. Using the patellar clamp and cut guide, this was resected to a flat surface with at least 13mm of thickness remaining. The size 38 patella fit the best. This was oriented and then clamped into position. The lugs were drilled. The trial components were removed. The final components were opened on the back table. The periosteal and capsular tissues, especially posteriorly, around the knee were then systematically injected with a periarticular cocktail consisting of 246mg of Ropivacaine, 0.5mg of Epinephrine, 0.08mg of Clonidine, and 30mg of Ketorolac, diluted to 100cc. On the back table, with the implants opened, the cement was mixed. One batch of high viscosity cement was prepared with vacuum assistance. After the cement was ready a small amount was placed on the cut surface of the patella and the patellar button was clamped into position and held. While the cement was hardening, the cementless knee components were placed. Starting with the tibial component, the tibia was subluxed anteriorly and the lug holes of the component were lined up. The tibia was then impacted with an impactor and mallet until the tibial component was in contact with the tibia. The final polyethylene component was inserted. Then, the femoral component was inserted. The lug holes were aligned and the component was impacted into position. The knee was irrigated with Surgiphor Betadine solution. This was allowed to sit in the knee for 3 minutes and then it was irrigated out with saline. After the cement had finally cured, approximately 15min, the clamp was removed from the patella and the knee was taken through range of motion. The patella was tracking with a no-thumbs technique. The capsule was then reapproximated with a No. 1 Vicryl at multiple locations. The capsule was finally closed with a No. 2 Stratafix, barbed suture. The second dosing of 1g TXA was started. Deep tissues were then reapproximated with 0 Vicryl and 2-0 Vicryl. The skin was closed with a running 3-0 Monocryl in a subcuticular fashion. This was reinforced with skin glue. A Mepilex silver dressing was applied along with a [id number] SUSANA wrap. A CryoCuff was applied. Arian was transferred to the hospital bed without difficulty an suffering no apparent complication. Arian has a good prognosis. Physical therapy will start today and without restrictions, weight-bearing as tolerated. Aspirin 81mg BID will be used for DVT prophylaxis.
[2023-06-13] MEDS: oxyCODONE 5 MG TAB PO (12:18)
--- NOTE | 2023-06-13 12:32 | W.PM.DSUDISC ---
Date of service: 06/13/23 Time of Service: 12:35 Discharge Plan Disposition Patient Disposition: Home Condition: Good Discharge Details Reason For Visit: R TKR Attending Provider: Rahul Osorio Primary Care Provider: Pratima Fregoso Home Meds and New Rx's Prescriptions: New acetaminophen 500 mg tablet 1,000 mg PO TID Qty: 90 3RF aspirin 81 mg tablet,delayed release (DR/EC) 81 mg PO BID Qty: 60 0RF celecoxib 200 mg capsule 200 mg PO BID Qty: 60 0RF dexamethasone 4 mg tablet 4 mg PO DAILY Qty: 2 0RF gabapentin 300 mg capsule 300 mg PO QHS Qty: 14 0RF oxycodone 5 mg tablet 5 mg PO Q4H MDD 6 tabs PRN (Reason: pain) Qty: 20 0RF Continued mirtazapine 7.5 mg tablet 7.5 mg PO DAILY losartan 25 mg tablet 25 mg PO DAILY escitalopram oxalate [Lexapro] 20 mg tablet 20 mg PO DAILY omeprazole 40 mg capsule,delayed release(DR/EC) 40 mg PO DAILY cholecalciferol (vitamin D3) 25 mcg (1,000 unit) capsule 25 mcg PO DAILY Trulicity 1.5 mg/0.5 mL pen injector 1.5 mg subcut QWEEK sildenafil 100 mg tablet 100 mg PO DIRECTED testosterone cypionate 200 mg/mL oil 200 mg IM Q2W Patient Comments: INJECT 1 ML INTO THE MUSCLE EVERY 14 DAYS Discontinued tramadol 50 mg tablet 50 - 100 mg PO TID PRN (Reason: pain) Qty: 30 0RF celecoxib [Celebrex] 200 mg capsule 200 mg PO BID Discharge Instructions Additional Instructions: Total Knee Discharge Instructions Activity: The most important activity is to walk and to work on gentle motion (both flexion and extension). You should try to take short walks a few times a day. It is important that when resting you work on keeping the knee straight. Avoid putting a pillow behind the knee as this will encourage flexion. Work on range of motion exercises as provided by Physical Therapy. - Start outpatient physical therapy within 2 weeks. - You should wear the DANI hose on both legs for 2 weeks. You may remove these at night. You may also use any compression sock in place of the DANI hose. - Utilize [employer] to review exercises, see videos on exercises and obtain basic information pertaining to your surgery and your recovery. Dressing: Remove the Ciro wrap by 2 days after your surgery and put on the DANI stocking given to you from the hospital. Keep the surgical dressing (underneath the CIRO wrap) in place for at least one week. After the first week it may be removed and replaced with light gauze and tape or nothing. The wound and dressing may get wet after 3 days but avoid soaking the dressing or otherwise it will need to be changed. Many people prefer covering the dressing with cling wrap (saran wrap) to minimize it from getting soaked. If it gets wet, just pat dry. If it starts to peel off then it will need to be changed. Medications: - You should take Tylenol and anti-inflammatory Celebrex as your primary pain control medications. If the Celebrex is too expensive or not covered, please call the office for another alternative (Advil/Ibuprofen or Naproxen/Aleve) - You have been prescribed a stronger pain medication Oxycodone for breakthrough pain, take as needed as prescribed. - You will continue your omperazole to help reduce stomach acid and reflux. - You have been prescribed Gabapentin to take at night for restlessness and nerve pain. - You will be taking Aspirin 81mg twice a day for DVT prevention unless instructed otherwise. - You have also been prescribed Decadron to take to control post-operative nausea and pain. You will start this tomorrow. - If you have constipation you should take Colace or Miralax (both [id number]). It takes most people 3-4 days to have a bowel movement. Follow-up: 2 weeks If you have any acute concerns or questions, please do not hesitate to contact the office at [phone]. You may contact Dr. Osorio with any questions after hours through the hospital at [phone] or on his cell phone at [phone]. Stand Alone Forms: Anesthesia Discharge Inst., Andressa.Nerve Block Instructions, Kavin Cruz (DSU) Referrals: Rahul Osorio MD [ [facility] STAFF PHYSICIAN] - Equipment/Supplies: Walker Activity:: Activity as Tolerated Shower/Bathe:: 72 hours Diet:: As Tolerated Discharge Orders Discharge Orders: Discharge Order (Routine); Ordered 06/13/23 Ordered By: Rahul Osorio Discharge Data Discharge Date/Time-TO BE ENTERED AT DEPARTURE: 06/13/23 13:35 DS: Diagnosis Discharge Diagnosis (1) Primary osteoarthritis of right knee: Status: Acute
--- NOTE | 2023-06-13 12:38 | IN_ITS ---
Date of service: 06/13/23 Time of Service: 12:38 PT Notes Visit Reasons: R TKR Physical Therapy Day Surgery Initial Evaluation Date: 06/13/2023 Referring Doctor: NANCIE Gallego PT Orders: PT CONSULT: S/P orthos Surgery Precautions: WBAT on the R LE with AD. Patient Profile/Admitting Diagnosis: Maverick is a 47-year-old male with primary osteoarthritis of the right knee and status post right total knee arthroplasty on postoperative day 0. PMHX: Medical History? Chest discomfort Per pt. states it was a pulled muscle HTN (hypertension) Hypogonadism Neuropathy Plantar fasciitis Surgical History? H/O vasectomy History of back surgery Per pt. they removed bone spurs from my lower back History of hydrocelectomy History of orchiectomy History of tonsillectomy adnoids Hx of colonoscopy S/P arthroscopic partial medial meniscectomy LEFT DOS: 09/01/20 S/P surgical removal of pilonidal cyst Social History/Home Situation: Lives with , son, and daughter in a private home with 3 steps to enter with rails on both sides.? Independent with all aspects of ADLs prior to surgery.? Does woodworking.? works as an outpatient physical therapist. Equipment Owned/DME: F[employer], [employer] Subjective: Reported pain in the knee at 3-4/10 that subsided with mobility performance. Objective: General Observation: Supine in bed.? present throughout session.? SUSANA wrap to R LE.? Cryocufff to R knee. TEDS on R leg. Mental Status: Alert and oriented x 4 Pain: 3-4/10 at rest at the outset;? 1-2/10 after ambulation activity ROM: Left Lower Extremity: Hip flexion WFL. Hip abduction WFL. Knee flexion WFL. Ankle dorsiflexion WFL. Ankle plantarflexion WFL. Right Lower Extremity: Hip flexion WFL. Hip abduction WFL. Knee flexion about 20 degrees to 90 degrees. Knee extension about -20 degrees.? Ankle dorsiflexion WFL. Ankle plantarflexion WFL. Strength: Left Lower Extremity: Hip flexors 5/5. Knee flexors 5/5. Knee extensors 5/5. Ankle dorsiflexors 5/5. Right Lower Extremity: Hip flexors 4/5. Knee flexors 3-/5. Knee extensors 3-/5. Ankle dorsiflexors 5/5. Sensation: Intact as to pain and light pressure in bilateral lower extremities Bed Mobility/Transfers: Supine to sit standby assist with cues for use of hands and and slow ascent to minimize lightheadedness Sit to stand contact-guard assist with minimal cueing provided to use B hands for support Stand to sit standby assist contact-guard assist minimal cueing provided to reach behind and use B hands for support Gait: Instructed patient with level surface ambulation about 150 feet using front- wheeled walker with standby assist and minimal cueing for step-through gait pattern. Good R quadriceps activation.? Reported reduction in pain level to 1- 2/10 after walking.? Denies headache, chest pain, and lightheadedness throughout activity. Stairs: Up and down 6 x 4 inch steps 4 x 6 inch steps of holding onto bilateral rails with step-to gait pattern requiring standby assist and minimal verbal cueing for ensuring knee flexion on the R side during ascent. Balance: Static Sitting: Normal Dynamic Sitting: Normal Static Standing: Fair Dynamic Standing: Fair Special Tests: Mobility Limitations Standardized Measure [facility] 6 clicks Basic Mobility Inpatient Short Form: Raw Score: 24? CMS Score: 0% deficit Informed Consent/Education:? Patient instructed in purpose of PT consult. Trained patient with correct performance of exercises below to maximize motor control, joint flexibility, soft tissue extensibility of the R knee musculature to facilitate return to independent functional mobility performance. Access Code: [email or web address] URL: [email or web address] Date: 06/13/2023 Prepared by: Melyssa Eller Exercises - Supine Quad Set - 1 x daily - 7 x weekly - 1 sets - 10 reps - 5 hold - Supine Heel Slide - 1 x daily - 7 x weekly - 1 sets - 10 reps - 5 hold - Supine Ankle Pumps - 1 x daily - 7 x weekly - 1 sets - 10 reps - 5 hold - Small Range Straight Leg Raise - 1 x daily - 7 x weekly - 1 sets - 10 reps - 5 hold - Seated November - x daily - 7 x weekly - 1 sets - 10 reps - 5 hold ASSESSMENT:? Good quadriceps activation on the Eryn Temple demonstrates functional mobility decline requiring the use of a front-wheeled walker for all mobility ADL performance to maximize independence and reduce fall risk at home.? Will have full support of towards his knee rehabilitation. Patient presents with clinical signs and symptoms consistent with c urrent/admitting diagnoses that have resulted to mobility limitations, gait instability, generalized weakness, and impairment of motor control as demonstrated by the following impairment level findings: 1.? Decreased strength to R knee major muscle groups 2.? Impaired standing balance 3.? Limitation of joint range of motion in right knee Impairments are contributing to the following functional limitations: 1.? Inability to safely ambulate without assistive device 2.? Increased completion time for mobility ADL performance Patient is assessed as a 46589 moderate complexity based on the following: History: 46-year-old male with impairment level findings, functional limitations, and past medical history as indicated above Examination: Demonstrable impairment in strength, balance, and mobility level with underlying impairments and functional limitations as documented above Presentation: Evolving Decision Makin moderate complexity Goals: N/A.? PT evaluation and 1 treatment sessions only for functional mobility training using recommended AD and for HEP instruction. Plan of Care/Treatment Plan: N/A.? PT evaluation and 1 treatment session only for functional mobility training using recommended AD and for HEP instruction. DISCHARGE RECOMMENDATIONS: Home when medically cleared by orthopedic surgeon.? Patient will benefit from outpatient PT services in order to facilitate return to full independent ADL performance,? community ambulation, and vocational activities. TREATMENT CODE/TIME: 45470 x 38 minutes for 1 unit beginning at 12:38 PM. Thank you for the opportunity to participate in the care of this patient. Melyssa Eller PT, DPT, CLT [facility] [place], [place]
--- NOTE | 2023-06-13 13:57 | W.ANESPOSTOP ---
Postoperative Evaluation Date, Time and Location Date Performed: 06/13/23 Time Performed: 13:57 Patient Location: Day Surgery Unit Vital Signs Most Recent Imported Vital Signs: Most Recent Vital Signs Temp Pulse Resp BP Pulse Ox 36.4 C L 89 18 148/98 H 98 06/13/23 12:21 06/13/23 12:21 06/13/23 12:21 06/13/23 12:21 06/13/23 12:21 Pain Score Most Recent Pain Score: Most Recent Pain Score Pain Level [Right Knee] 5 06/13/23 07:23 Pain Level 3 06/13/23 1357 Assessment Mental Status: Awake (Alert & Oriented to Patient Baseline) Airway and Respiratory Function: Patent airway with normal (patient baseline) respiratory exam Cardiovascular Function: Hemodynamically Stable Hydration Status: Adequately Hydrated Nausea & Vomiting: No Nausea or Vomiting Pain: Pain is tolerable per patient Peripheral Nerve Block: Regional nerve block not resolved at time of post operative discharge
== END 2023-06-13 13:35 | disposition home or self-care (01) ==
PROVIDERS: PCP Physician Assistant Medical; Visit Provider Student in an Organized Health Care Education/Training Program
PROC: (CPT 27447; principal; 2023-06-13 09:45)
DX: M17.11 Unilateral primary osteoarthritis, right knee (principal); G47.33 Obstructive sleep apnea (adult) (pediatric); R73.03 Prediabetes; K21.9 Gastro-esophageal reflux disease without esophagitis; E66.9 Obesity, unspecified; Z68.42 Body mass index [BMI] 45.0-49.9, adult
CPT/HCPCS: 27447; 76942; 97162; J0690; J1100; J2250; J2405

== ENCOUNTER 2023-06-21 01:24 | Outpatient (CLI) | payer OTHER, SELFPAY ==
[2023-06-21 19:42] LABS: Prolactin 3.7 ng/mL (2.1-17.7)
[2023-06-21 19:46] LABS: FSH 4.1 mIU/mL (1.4-18.1); LH 6.8 mIU/mL (1.5-9.3)
== END 2023-06-21 01:25 | disposition home or self-care (01) ==
LOC: LBO 01:24
PROVIDERS: PCP Physician Assistant Medical; Visit Provider Urology
DX: E29.1 Testicular hypofunction (principal); Z01.812 Encounter for preprocedural laboratory examination
CPT/HCPCS: 36415; 83001; 83002; 84146

== ENCOUNTER 2023-06-28 11:29 | Outpatient (CLI) | payer OTHER, SELFPAY ==
--- NOTE | 2023-06-28 11:11 | DI.RAD_ITS ---
Exam(s) XR STANDING ALIGNMENT XR KNEE RT 1V EXAM: XR STANDING ALIGNMENT and XR knee RT 1 V CLINICAL HISTORY: 1ST POST OP S/P R TKA. TECHNIQUE: 2D digital imaging was performed. Five images were obtained. COMPARISON: CR XR KNEE RT 3V AP,LAT,HILTON from 03/09/2023 CR XR STANDING ALIGNMENT from 06/07/2023 FINDINGS: BONES: The hips are well maintained. There are bilateral total knee replacements. The orthopedic green rdware appears in good position. There is mild soft tissue swelling around the right knee. The ankl es are well maintained.There is no significant leg length discrepancy. SOFT TISSUE: Normal. IMPRESSION: Stable bilateral total knee replacements. DATA REPOSITORY: RADIATION DOSE DELIVERED:
== END 2023-06-28 11:30 | disposition home or self-care (01) ==
LOC: DIORS 11:29
PROVIDERS: PCP Physician Assistant Medical; Referring Provider Physician Assistant Medical; Visit Provider Student in an Organized Health Care Education/Training Program
DX: Z96.651 Presence of right artificial knee joint (principal); Z96.652 Presence of left artificial knee joint; Z47.1 Aftercare following joint replacement surgery
CPT/HCPCS: 73560; 77073

== ENCOUNTER 2023-07-19 14:18 | Outpatient (REF) | payer OTHER, SELFPAY ==
[2023-07-19 16:11] LABS: HCT 44.6 % (40.0-50.0)
[2023-07-19 16:45] LABS: Uric Acid 7.3 mg/dL (3.5-7.2)
[2023-07-19 19:21] LABS: Hemoglobin A1C 5.6 % (<5.7)
[2023-08-03 15:31] LABS: Testosterone, Free 38.8 ng/dL (4.26-16.4); Testosterone, Total 718 ng/dL (240-950)
== END 2023-07-19 14:19 | disposition home or self-care (01) ==
LOC: NCHCN 14:18
PROVIDERS: PCP Physician Assistant Medical; Visit Provider Nurse Practitioner Family
DX: Z51.81 Encounter for therapeutic drug level monitoring (principal); E29.1 Testicular hypofunction; K21.9 Gastro-esophageal reflux disease without esophagitis; E11.9 Type 2 diabetes mellitus without complications; M79.676 Pain in unspecified toe(s)
CPT/HCPCS: 84402; 84403; 83036; 83735; 84550; 85014; 85018

== ENCOUNTER 2023-11-21 17:14 | Outpatient (REF) | payer OTHER, SELFPAY ==
[2023-11-21 20:15] LABS: ALT 48 U/L (16-63); AST 24 U/L (15-37); Albumin 3.8 g/dL (3.4-5.0); Alkaline Phosphatase 77 U/L (46-116); Anion Gap 7.9 mmol/L (3-11); BUN 16 mg/dL (7-18); CO2 29.1 mmol/L (21.0-32.0); CREATININE 1.1 mg/dL (0.70-1.30); Calcium 8.8 mg/dL (8.5-10.1); Calculated LDL 78 mg/dL (<100); Chloride 104 mmol/L (98-107); Cholesterol 147 mg/dL (<200); Estimated GFR 82.81 (mL/min/1.73m2); Glucose 110 mg/dL (74-106); HDL Cholesterol 43 mg/dL (40-60); Sodium 141 mmol/L (136-145); Total Protein 7.3 g/dL (6.4-8.2); Triglyceride 133 mg/dL (<150)
[2023-11-21 20:25] LABS: Uric Acid 6.1 mg/dL (3.5-7.2)
[2023-11-21 20:36] LABS: Hemoglobin A1C 6.8 % (<5.7)
[2023-12-01 16:39] LABS: Testosterone, Free 45.5 ng/dL (4.26-16.4); Testosterone, Total 831 ng/dL (240-950)
== END 2023-11-21 17:15 | disposition home or self-care (01) ==
LOC: NCHCN 17:14
PROVIDERS: PCP Physician Assistant Medical; Visit Provider Physician Assistant Medical
DX: E11.9 Type 2 diabetes mellitus without complications (principal); I10 Essential (primary) hypertension; Z90.79 Acquired absence of other genital organ(s)
CPT/HCPCS: 80053; 80061; 84402; 84403; 83036; 84550

== ENCOUNTER → 2024-04-09 01:13 | Outpatient (CLI) | payer OTHER, SELFPAY ==
--- NOTE | 2024-04-09 15:13 | DI.RAD_ITS ---
Exam(s) XR SHOULDER RT COMPLETE 2+V EXAM: XR SHOULDER RT COMPLETE 2+V CLINICAL HISTORY: Injury of rt shoulder and upper arm, [id number]. TECHNIQUE: 2D digital imaging was performed of the right shoulder. Five images were obtained. AP, Grashey, Y-view and axillary views were obtained. COMPARISON: No exams were available for comparison FINDINGS: BONES: No acute fracture is present. No bony destructive lesion is seen. JOINTS: No dislocation present. There are moderate degenerative changes seen at the acromioclavicular joint. The glenohumeral joint is well maintained. SOFT TISSUE: Normal. IMPRESSION: 1. No acute fracture or dislocation. 2. Degenerative changes of the right acromioclavicular joint. DATA REPOSITORY: RADIATION DOSE DELIVERED:
--- NOTE | 2024-04-09 15:13 | DI.RAD_ITS ---
Exam(s) XR ELBOW RT COMPLETE EXAM: XR ELBOW RT COMPLETE CLINICAL HISTORY: Pain in rt elbow, M25.521. TECHNIQUE: 2D digital imaging was performed of the left elbow. Three images were obtained. AP, lat eral and oblique views were obtained. COMPARISON: No priors for comparison. FINDINGS: BONES: No acute fracture is present. No bony destructive lesion is seen. JOINTS: The elbow is normally aligned. No joint effusion is seen. SOFT TISSUE: Normal. IMPRESSION: No acute fracture or dislocation. DATA REPOSITORY: RADIATION DOSE DELIVERED:
== END ==
PROVIDERS: PCP Physician Assistant Medical; Visit Provider Nurse Practitioner Family
DX: S49.91XA Unspecified injury of right shoulder and upper arm, initial encounter (principal); M19.011 Primary osteoarthritis, right shoulder
CPT/HCPCS: 73030; 73080

== ENCOUNTER 2024-04-14 03:19 | Outpatient (CLI) | payer OTHER, SELFPAY ==
[2024-04-14 12:22] LABS: HCT 48.4 % (40.0-50.0)
[2024-04-14 17:30] LABS: PSA, Screening 0.4 ng/mL (<=2.5)
[2024-04-18 03:21] LABS: Testosterone, Total 78 ng/dL (240-950)
== END 2024-04-14 03:20 | disposition home or self-care (01) ==
LOC: LOS 03:20
PROVIDERS: PCP Physician Assistant Medical; Visit Provider Urology
DX: E29.1 Testicular hypofunction (principal); Z12.5 Encounter for screening for malignant neoplasm of prostate
CPT/HCPCS: 36415; 84153; 84403; 85027; 85014; 85018

== ENCOUNTER 2024-05-16 01:24 | Outpatient (CLI) | payer OTHER, SELFPAY ==
[2024-05-20 17:24] LABS: Testosterone, Total 627 ng/dL (240-950)
== END 2024-05-16 01:25 | disposition home or self-care (01) ==
LOC: LOS 01:24
PROVIDERS: PCP Physician Assistant Medical; Visit Provider Urology
DX: E29.1 Testicular hypofunction (principal)
CPT/HCPCS: 36415; 84403

== ENCOUNTER 2024-06-16 16:13 | Outpatient (CLI) | payer OTHER, SELFPAY ==
--- NOTE | 2024-06-16 15:15 | DI.RAD_ITS ---
Exam(s) XR KNEE RT 2V AP,LAT EXAM: XR KNEE RT 2V AP,LAT INDICATION: ANNUAL F/U R TKA. COMPARISON: CR XR KNEE RT 1V from 06/28/2023 TECHNIQUE: 2D digital imaging was performed. Two views. FINDINGS: Stable alignment of total knee prosthesis. No abnormal surrounding bony lucencies. No visible joint effusion. Impression: Stable knee prosthesis. DATA REPOSITORY: RADIATION DOSE DELIVERED:
== END 2024-06-16 16:14 | disposition home or self-care (01) ==
LOC: DIORS 16:13
PROVIDERS: PCP Physician Assistant Medical; Visit Provider Student in an Organized Health Care Education/Training Program
DX: Z96.651 Presence of right artificial knee joint (principal); Z47.1 Aftercare following joint replacement surgery
CPT/HCPCS: 73560

== ENCOUNTER 2024-07-24 22:31 | Outpatient (REF) | payer OTHER, SELFPAY | END 2024-07-24 22:32 | disposition home or self-care (01) | LOC: LBN 22:31 | PROVIDERS: PCP Physician Assistant Medical; Visit Provider Physician Assistant Medical | DX: L08.9 Local infection of the skin and subcutaneous tissue, unspecified (principal); R82.89 Other abnormal findings on cytological and histological examination of urine | CPT/HCPCS: 87077; 87070; 87205 ==

== ENCOUNTER 2024-08-22 16:29 | Emergency (ER) | payer OTHER, SELFPAY ==
[2024-08-22 16:31] VITALS: BP 136/84; PULSE 92; RESP 18; TEMP 36.8; O2SAT 96
--- NOTE | 2024-08-22 16:36 | W.ED.GENAD ---
Discharge Plan Disposition Patient Disposition: Home Condition: Stable Discharge Details Clinical Impression: Laceration of left hand Primary Care Provider: Pratima Fregoso ED Provider: Xavi Sotomayor Home Meds and New Rx's Prescriptions: New cephalexin 500 mg capsule 500 mg PO QID 3 Days Qty: 12 0RF Continued mirtazapine 7.5 mg tablet 7.5 mg PO DAILY losartan 25 mg tablet 25 mg PO DAILY escitalopram oxalate [Lexapro] 20 mg tablet 20 mg PO DAILY Mounjaro 2.5 mg/0.5 mL pen injector 2.5 mg subcut QWEEK Jatenzo 237 mg capsule 237 mg PO BID Rx Instructions: must administer with a meal/food allopurinol 100 mg tablet 100 mg PO DAILY cholecalciferol (vitamin D3) 25 mcg (1,000 unit) capsule 25 mcg PO DAILY cephalexin 500 mg capsule 500 mg PO TID Qty: 15 0RF Rx Instructions: take 1 tablet by mouth three times per day for 5 days sildenafil 100 mg tablet 100 mg PO DIRECTED acetaminophen 500 mg tablet 1,000 mg PO TID Qty: 90 3RF celecoxib 200 mg capsule 200 mg PO BID Qty: 60 0RF Discharge Instructions Instructions: Cephalexin, Laceration Repair With Stitches ED Additional Instructions: You were seen in the emergency department for the laceration to the dorsum of your left hand this was repaired by 4 sutures, these will need to be removed in 7 to 10 days, your third finger tendon was visualized and it is intact, we cleaned the wound aggressively, your tetanus is up-to-date and I am putting you on a prophylactic course of cephalexin, sent to [facility] in [place]. Please monitor for involuntary flexion or extension of the fingers, redness, increasing pain, fever, red streaking spreading up the arm and return emergently for the symptoms. Referrals: Pratima Fregoso PA [Primary Care Provider] - Discharge Data Discharge Date/Time-TO BE ENTERED AT DEPARTURE: 08/22/24 19:12 HPI General Date/Time Provider Initiated Documentation: 08/22/24 16:35. HPI Narrative: 49 year-old male presents to ED today by POV/ambulating with a chief complaint of L hand laceration with onset just prior to arrival. Quality described as not very painful, no radiation to active bleeding, numbness/tingling, ROM deficits. Severity is described as mild. Palliating factors include nothing specific. Provoking factors include nothing specific. Events leading up to the incident/Associated Symptoms: Patients Tdap is UTD. Patient not anticoagulated. Related Data Home Medications ?Medication ?Instructions ?Recorded ?Confirmed escitalopram oxalate 20 mg tablet 20 mg PO DAILY 07/12/20 06/16/24 (Lexapro) losartan 25 mg tablet 25 mg PO DAILY 07/12/20 06/16/24 sildenafil 100 mg tablet 100 mg PO DIRECTED 09/01/20 06/16/24 cholecalciferol (vitamin D3) 25 25 mcg PO DAILY 03/04/21 06/16/24 mcg (1,000 unit) capsule mirtazapine 7.5 mg tablet 7.5 mg PO DAILY 03/20/22 06/16/24 acetaminophen 500 mg tablet 1,000 mg (2 x 500 mg) PO TID #90 06/13/23 06/16/24 tabs celecoxib 200 mg capsule 200 mg PO BID #60 caps 06/13/23 06/16/24 testosterone undecanoate 237 mg 237 mg PO BID 08/20/23 06/16/24 capsule (Jatenzo) tirzepatide 2.5 mg/0.5 mL 2.5 mg subcut QWEEK 08/20/23 06/16/24 subcutaneous pen injector (Momaxro) allopurinol 100 mg tablet 100 mg PO DAILY 09/17/23 06/16/24 cephalexin 500 mg capsule 500 mg PO TID #15 caps 12/10/23 06/16/24 cephalexin 500 mg capsule 500 mg PO QID 3 days #12 caps 08/22/24 Previous Rx's ?Medication ?Instructions ?Recorded acetaminophen 500 mg tablet 1,000 mg (2 x 500 mg) PO TID #90 06/13/23 tabs celecoxib 200 mg capsule 200 mg PO BID #60 caps 06/13/23 cephalexin 500 mg capsule 500 mg PO TID #15 caps 12/10/23 cephalexin 500 mg capsule 500 mg PO QID 3 days #12 caps 08/22/24 Allergies Allergy/AdvReac Type Severity Reaction Status Date / Time trazodone Allergy Unknown unknown Verified 06/16/24 15:30 General Stated Complaint: Laceration JUAN: 4 Review of Systems All systems reviewed & are unremarkable except as noted in HPI and below Exam Narrative Exam Narrative: GENERAL APPEARANCE: Well-nourished, non-toxic, awake and alert, atraumatic, no acute distress. SKIN: Warm, pink, dry, 1.5cm laceration at dorsal base of L third finger, tendon visualized but intact, strength/ROM intact to finger, no active bleeding HEAD: Normocephalic, atraumatic, normal hair distribution for gender/age. EYES: Normal conjunctiva, no exudates on lids/lashes. ENT: Nares patent, no circumoral cyanosis, no facial swelling NECK: Supple, trachea midline, painless cervical ROM. LUNGS/CHEST: Non-labored respirations, normal A/P diameter, symmetrical expansion, no chest wall deformity HEART (CV/PV): Regular rate, L radial pulse 2+, no peripheral edema, no JVD. ABDOMEN: Soft, non-distended, no guarding. MSK: Normal ROM, no swelling/deformity to bilateral UEs or LEs, moving all extremities without weakness, no cyanosis, spine midline without tenderness, normal curvature. NEURO: Mental Status AAOx4 - alert to person, place, time, events No facial droop, no forehead involvement. Motor: No focal weakness - strength 5/5 in bilateral UEs and LEs, proximal and distal, symmetric. Sensory: sensation intact to light touch globally. Gait normal: patient ambulated without ataxia into ED room. PSYCH: euthymic, cooperative, pleasant, appropriate speech Course Vital Signs Vital signs: Vital Signs Temperature 36.8 C 08/22/24 16:31 Pulse 92 H 08/22/24 16:31 Respiratory Rate 18 08/22/24 16:31 Blood Pressure 136/84 08/22/24 16:31 Pulse Oximetry 96 08/22/24 16:31 Temperature 36.8 C 08/22/24 16:31 Temperature Source Temporal Artery Scan 08/22/24 16:31 Pulse 92 H 08/22/24 16:31 Respiratory Rate 18 08/22/24 16:31 Blood Pressure 136/84 08/22/24 16:31 Blood Pressure Position Sitting 08/22/24 16:31 Pulse Oximetry 96 08/22/24 16:31 Oxygen Delivery Method Room Air 08/22/24 16:31 Oxygen Flow Rate 0 08/22/24 16:31 Procedures Laceration Laceration 1: Site: hand Side (If applicable): left Size (cm): 1.5 Description: linear Depth: simple, single layer Local anesthetic: Lidocaine 1% Amount of anesthesia used (mL): 5 Pre-repair: wound explored, irrigated extensively and deep structures intact Skin layer closed with: nylon Size (cm): 4-0 Number of sutures: 4 Technique: simple, interrupted Medical Decision Making This dictation utilizes [id number] dictation software and may contain unedited grammatical errors. 49 year-old male presents to ED today by POV/ambulating with a chief complaint of L hand laceration with onset just prior to arrival. Quality described as not very painful, no radiation to active bleeding, numbness/tingling, ROM deficits. Severity is described as mild. Palliating factors include nothing specific. Provoking factors include nothing specific. Events leading up to the incident/Associated Symptoms: Patients Tdap is UTD. Patients' medical history: Noncontributory. Family and social history: Noncontributory. Pertinent exam findings / vital signs include SKIN: Warm, pink, dry, 1.5cm laceration at dorsal base of L third finger, tendon visualized but intact, strength/ROM intact to finger, no active bleeding. Differential / pathologies of concern include laceration, tendon laceration. Diagnostic studies of: -none. Interventions of: -suture repair, prophylactic ABX ED Course/Assessment/Plan: Patient seen with simple superficial laceration to the dorsum of left hand, he is right-hand dominant this was repaired with 4 sutures, there was tendon visualized but no obvious tendon laceration even partially, counseled on prophylactic antibiotics and restrict return criteria for any involuntary flexion or extension of the fingers, and signs of infection, stressed return criteria for suture removal in 7 to 10 days. Findings not consistent with tendon laceration. Disposition of laceration of left hand. Patient verbalized understanding of the plan and return to ED criteria and engaged in shared decision making. Medical Records Medical records reviewed: Yes I reviewed the patient's medical records. Quality:SDOH Health Related Social Needs: No Data to Display PFSH All Active Problems (Updated 08/22/24 @ 18:44 by NANCIE Britton) Laceration of left hand (Acute) Olecranon bursitis of left elbow (Acute) Prominent osteophyte Neuritis of right ulnar nerve (Acute) Pelvic pain in male (Acute) Bilateral varicoceles (Acute) Scrotal abscess (Acute) Atypical nevus (Acute) Perirectal abscess (Acute) GERD (gastroesophageal reflux disease) (Chronic) Prediabetes (Acute) Anxiety (Chronic) MONICA (obstructive sleep apnea) (Chronic) Shortness of breath (Acute) Myalgia (Acute) Insomnia (Acute) Obesity (Chronic) MCL sprain of left knee (Acute) Medical History (Updated 08/22/24 @ 18:44 by NANCIE Britton) Chest discomfort Per pt. states it was a pulled muscle Hypogonadism Neuropathy HTN (hypertension) Plantar fasciitis Surgical History (Updated 09/17/23 @ 15:44 by NANCIE Gallego) History of total right knee replacement (06/13/23) History of total left knee replacement (TKR) (02/07/22) History of total left knee replacement Hx of colonoscopy History of orchiectomy S/P arthroscopic partial medial meniscectomy LEFT DOS: 09/01/20 History of hydrocelectomy H/O vasectomy S/P surgical removal of pilonidal cyst History of tonsillectomy adnoids History of back surgery Per pt. they removed bone spurs from my lower back Family History Other Cancer Diabetes Heart disease Social History Smoking/Tobacco Use Status: Never Smoking risk assessment performed?: Yes Alcohol Intake: current Alcohol Intake frequency: a few times a week Alcohol type: beer Drug use: Never Substance use type: does not use Housing: house Current gender identity: male Do you feel safe at home: Yes Do you feel safe in your relationship?: Yes
[2024-08-22] MEDS: Cephalexin 500 MG CAP PO ×2 (17:35→18:58)
[2024-08-22] MEDS: Lidocaine 1% Pres-Free 5 ML VIAL IJ (18:00)
[2024-08-22 18:58] VITALS: BP 141/82; PULSE 82; RESP 18; O2SAT 94
== END 2024-08-22 19:12 | disposition home or self-care (01) ==
PROVIDERS: Emergency Provider Physician Assistant; PCP Physician Assistant Medical
DX: S61.412A Laceration without foreign body of left hand, initial encounter (principal); W25.XXXA Contact with sharp glass, initial encounter
CPT/HCPCS: 12001; J2003

== ENCOUNTER 2024-11-21 00:34 | Outpatient (CLI) | payer OTHER, SELFPAY ==
[2024-11-28 15:40] LABS: Testosterone, Total 1080 ng/dL (240-950)
== END 2024-11-21 00:35 | disposition home or self-care (01) ==
PROVIDERS: PCP Physician Assistant Medical; Visit Provider Urology
DX: E29.1 Testicular hypofunction (principal)
CPT/HCPCS: 36415; 84403

== ENCOUNTER 2024-12-29 09:05 | Emergency (ER) | payer OTHER, SELFPAY ==
[2024-12-29] VITALS (25 sets, daily range): BP systolic 134–171; BP diastolic 60–98; PULSE 82–111; RESP 12–30; TEMP 36.3; O2SAT 94–97
--- NOTE | 2024-12-29 09:00 | DI.RAD_ITS ---
Exam(s) XR PORTABLE CHEST AP EXAM: XR PORTABLE CHEST AP CLINICAL HISTORY: Chest pain TECHNIQUE: 2D digital imaging was performed of the chest. One image was obtained. An AP view was ob tained. COMPARISON: CR XR CHEST 2V PA LATERAL from 03/30/2021 FINDINGS: MEDIASTINUM: Normal. HEART: Normal. PULMONARY VASCULATURE: Normal. LUNGS: Clear. PLEURAL SPACE: No pleural effusion or pneumothorax. BONE:Within normal limits for the patient's age. OTHER FINDINGS:Normal. IMPRESSION: No acute pulmonary findings. DATA REPOSITORY: RADIATION DOSE DELIVERED:
--- NOTE | 2024-12-29 09:00 | RT.EKG_ITS ---
APPROVED REPORT Exam: Resting ECG Reason for Exam: chest pain Patient Location: E HR:101 bpm ECG Measurements Heart Rate 101 AXIS UT 155 P 78 QRSd 106 QRS 66 QT 337 T -10 QTc 438 Conclusion Sinus tachycardia, rate 101 No interval abnormalities No STEMI T wave inversion lead III, no priors available for comparison
--- NOTE | 2024-12-29 09:22 | ED.GENADUL_ITS ---
Discharge Plan Disposition Patient Disposition: Home Condition: Stable Discharge Details Clinical Impression: Chest pain Primary Care Provider: Pratima Fregoso ED Provider: Amy Estevez Home Meds and New Rx's Prescriptions: Continued mirtazapine 7.5 mg tablet 7.5 mg PO DAILY losartan 25 mg tablet 25 mg PO DAILY escitalopram oxalate [Lexapro] 20 mg tablet 20 mg PO DAILY Mounjaro 2.5 mg/0.5 mL pen injector 15 mg subcut QWEEK Jatenzo 237 mg capsule 237 mg PO BID Rx Instructions: must administer with a meal/food allopurinol 100 mg tablet 100 mg PO DAILY cholecalciferol (vitamin D3) 25 mcg (1,000 unit) capsule 25 mcg PO DAILY sildenafil 100 mg tablet 100 mg PO DIRECTED acetaminophen 500 mg tablet 1,000 mg PO TID Qty: 90 3RF celecoxib 200 mg capsule 200 mg PO BID Qty: 60 0RF Discharge Instructions Instructions: Troponin Test, Chest Pain, Adult ED Additional Instructions: At this time cardiac workup is within normal limits. However I do suggest that you follow-up with your primary care provider for outpatient stress test and echocardiogram. Please return to the ER for any worsening pain, worsening shortness of breath, back pain or any concerns. No evidence of blood clots in your lungs. All the rest of your labs were largely unremarkable. Your magnesium was slightly low and this was given to you in a tablet form. Follow up with primary care provider in 3-5 days. Return to ED sooner if any worsening or concerns. Thank you for allowing us to care for you today. Referrals: Pratima Fregoso PA [Primary Care Provider] - 3 days HPI General Mode of arrival: ambulatory . Date/Time Provider Initiated Documentation: 12/29/24 09:06 . Limitations to Documentation: no limitations . Information obtained by: patient, RN notes reviewed and old records reviewed . HPI Narrative: 49-year-old male presents to the ER with a chief complaint of midsternal chest pain and some shortness of breath which has been present for the last week. Patient reports that he thought it was a strained muscle however it has been increasing. No known injury or heavy lifting. Denies any cough shortness of breath fever chills nausea vomiting diarrhea. Is not a smoker. Does have a history of obesity. Does not take aspirin daily. He denies any radiation of pain. Does have a past medical history of hypertension and GERD. Related Data Home Medications ?Medication ?Instructions ?Recorded ?Confirmed escitalopram oxalate 20 mg tablet 20 mg PO DAILY 07/12/20 12/29/24 (Lexapro) losartan 25 mg tablet 25 mg PO DAILY 07/12/20 12/29/24 sildenafil 100 mg tablet 100 mg PO DIRECTED 09/01/20 12/29/24 cholecalciferol (vitamin D3) 25 25 mcg PO DAILY 03/04/21 12/29/24 mcg (1,000 unit) capsule mirtazapine 7.5 mg tablet 7.5 mg PO DAILY 03/20/22 12/29/24 acetaminophen 500 mg tablet 1,000 mg (2 x 500 mg) PO TID #90 06/13/23 12/29/24 tabs celecoxib 200 mg capsule 200 mg PO BID #60 caps 06/13/23 12/29/24 testosterone undecanoate 237 mg 237 mg PO BID 08/20/23 12/29/24 capsule (Jatenzo) tirzepatide 2.5 mg/0.5 mL 15 mg subcut QWEEK 08/20/23 12/29/24 subcutaneous pen injector (Josh) allopurinol 100 mg tablet 100 mg PO DAILY 09/17/23 12/29/24 Previous Rx's ?Medication ?Instructions ?Recorded acetaminophen 500 mg tablet 1,000 mg (2 x 500 mg) PO TID #90 06/13/23 tabs celecoxib 200 mg capsule 200 mg PO BID #60 caps 06/13/23 Allergies Allergy/AdvReac Type Severity Reaction Status Date / Time trazodone Allergy Unknown unknown Verified 12/29/24 09:10 General Stated Complaint: Chest Pain JUAN: 3 Review of Systems All systems reviewed & are unremarkable except as noted in HPI and below Cardiovascular Cardiovascular: Reports chest pain and Reports dyspnea Respiratory Respiratory: Reports dyspnea Exam Narrative Exam Narrative: Constitutional: Alert and oriented x3. Appears stated age. Obese body habitus. Head: Normocephalic, no trauma. Eyes: Pupils PERRL, Red reflex noted, EOM's intact. Eyelids symmetrical without lesions, discharge, or swelling. ENT: Bilateral TM's WNL, External ear normal to inspection, no mastoid TTP, swelling, or erythema, Nasal turbinates WNL, no nasal discharge. Normal dentition, Posterior pharynx WNL, no exudate. Chest: RRR, Normal S1, S2, distal pulses intact. Resp: Lungs clear to auscultation bilaterally, no wheezes, rales, or rhonchi. Abdomen: Soft, non-distended, Normoactive bowel sounds all 4 quads. Musculoskeletal: Normal gait, Moves all 4 extremities without difficulty. Skin: No suspicious rashes or lesions. Capillary refill less than 2 sec. Neurologic: Cranial nerves II-XII intact. Alert and oriented x 3. Motor: No deficits noted. Sensory: Intact bilaterally all 4 extremities. Hematologic/Lymphatic: No ecchymosis, no lymphadenopathy. Course Vital Signs Vital signs: Vital Signs Temperature 36.3 C L 12/29/24 09:08 Pulse 96 H 12/29/24 09:08 Respiratory Rate 12 12/29/24 09:08 Blood Pressure 171/90 H 12/29/24 09:08 Pulse Oximetry 97 12/29/24 09:08 Temperature 36.3 C L 12/29/24 09:08 Temperature Source Tympanic 12/29/24 09:08 Pulse 96 H 12/29/24 09:08 Respiratory Rate 12 12/29/24 09:08 Blood Pressure 171/90 H 12/29/24 09:08 Blood Pressure Position Sitting 12/29/24 09:08 Pulse Oximetry 97 12/29/24 09:08 Oxygen Delivery Method Room Air 12/29/24 09:08 Oxygen Flow Rate 0 12/29/24 09:08 Pain Level 7 12/29/24 09:08 Medical Decision Making 49-year-old male presents to the ER with a chief complaint of midsternal chest pain and some shortness of breath which has been present for the last week. Patient reports that he thought it was a strained muscle however it has been increasing. No known injury or heavy lifting. Denies any cough shortness of breath fever chills nausea vomiting diarrhea. Is not a smoker. Does have a history of obesity. Does not take aspirin daily. He denies any radiation of pain. Does have a past medical history of hypertension and GERD. EKG was reviewed by myself and Dr. Saint Aggarwal ER attending, old EKG available for review. No significant change. Please see official report. Cardiac workup ordered including serial troponins, D-dimer chest x-ray and will give 324 mg of chewable baby aspirin. Labs are largely unremarkable including 2 serial troponins. No leukocytosis, D- dimer within normal limits, magnesium slightly low which was replenished here in the emergency department given 4 mg of magnesium oxide. Discussed home care, strict return instructions and follow-up care with PCP to discuss possible echocardiogram and outpatient stress test he verbalized understanding. Discussed return if any worsening pain, shortness of breath movement of pain or any concerns. He did also ask about a possible hiatal hernia. I did discuss that this would require CT imaging which is a possibility patient declined at this time and would rather follow-up with his PCP. This text was generated using [employer] system, please disregard any oddities of phrase or misspellings. Medical Records Medical records reviewed: Yes I reviewed the patient's medical records. Lab Data Lab results reviewed: Yes I reviewed the patient's lab results. Labs: Laboratory Tests Range/Units 12/29/24 12/29/24 12/29/24 09:33 10:25 12:09 WBC (4.4-10.8) 10^3/uL 7.19 RBC (4.36-5.78) 10^6/uL 5.26 Hgb (13.5-17.5) g/dL 16.3 Hct (40.0-50.0) % 47.2 MCV (80-95) fL 90 MCH (27.0-33.0) pg 31.0 MCHC (32.0-36.0) % 34.5 RDW (11.8-14.1) % 12.9 Plt Count (130-400) 10^3/uL 209 MPV (8.0-11.0) fL 9.5 Immature Gran % % 0.8 Neutrophils % % 59.3 Lymphocytes % % 29.6 Monocytes % % 7.5 Eosinophils % % 1.8 Basophils % % 1.0 Nucleated RBC % (0.0-0.3) % 0.0 Absolute Neutrophils (1.2-6.7) 10^3/uL 4.26 Absolute Lymphocytes (1.2-3.4) 10^3/uL 2.13 Absolute Monocytes (0.1-0.8) 10^3/uL 0.54 Absolute Eosinophils (0.0-0.7) 10^3/uL 0.13 Absolute Basophils (0.0-0.2) 10^3/uL 0.07 D-Dimer (<500) ng/mlFEU 452 Sodium (136-145) mmol/L 141 Potassium (3.5-5.1) mmol/L 3.9 Chloride (98-107) mmol/L 105 Carbon Dioxide (21.0-32.0) mmol/L 30.8 Anion Gap (3-11) mmol/L 5.2 BUN (7-18) mg/dL 16 Creatinine (0.70-1.30) mg/dL 1.1 Est GFR (CKD-EPI 2020) (mL/min/1.73m2) 82.29 Glucose (74-106) mg/dL 133 H Calcium (8.5-10.1) mg/dL 8.8 Magnesium (1.8-2.4) mg/dL 1.7 L Total Bilirubin (0.2-1.0) mg/dL 0.7 AST (15-37) U/L 26 ALT (16-63) U/L 52 Alkaline Phosphatase (46-116) U/L 66 Troponin I (<or=76) ng/L 4 7 Cancelled NT-Pro-B Natriuret Pep (<300) pg/mL 10 Total Protein (6.4-8.2) g/dL 7.3 Albumin (3.4-5.0) g/dL 3.9 Lipase (<78) U/L 58 Quality:SDOH Health Related Social Needs: No Data to Display PFSH All Active Problems (Updated 12/29/24 @ 11:21 by Amy Estevez NP) Chest pain (Acute) Olecranon bursitis of left elbow (Acute) Prominent osteophyte Neuritis of right ulnar nerve (Acute) Pelvic pain in male (Acute) Bilateral varicoceles (Acute) Scrotal abscess (Acute) Atypical nevus (Acute) Perirectal abscess (Acute) GERD (gastroesophageal reflux disease) (Chronic) Prediabetes (Acute) Anxiety (Chronic) MONICA (obstructive sleep apnea) (Chronic) Shortness of breath (Acute) Myalgia (Acute) Insomnia (Acute) Obesity (Chronic) MCL sprain of left knee (Acute) Medical History Chest discomfort Per pt. states it was a pulled muscle Hypogonadism Neuropathy HTN (hypertension) Plantar fasciitis Surgical History History of total right knee replacement (06/13/23) History of total left knee replacement (TKR) (02/07/22) History of total left knee replacement Hx of colonoscopy History of orchiectomy S/P arthroscopic partial medial meniscectomy LEFT DOS: 09/01/20 History of hydrocelectomy H/O vasectomy S/P surgical removal of pilonidal cyst History of tonsillectomy adnoids History of back surgery Per pt. they removed bone spurs from my lower back Family History Other Cancer Diabetes Heart disease Social History Smoking/Tobacco Use Status: Never Smoking risk assessment performed?: Yes Alcohol Intake: current Alcohol Intake frequency: a few times a week Alcohol type: beer Drug use: Never Substance use type: does not use Housing: house Current gender identity: male Do you feel safe at home: Yes Do you feel safe in your relationship?: Yes PAWSS Have you Been Recently Intoxicated or Drunk Within the Last 30 days?: No Have you Ever Experienced Previous Episodes of Alcohol Withdrawal?: No Have you ever Experienced Withdrawal Seizures?: No Have you ever Experienced Delirium Tremens(DT)s?: No Have you ever undergone Alcohol Rehabilitation Treatment (i.e, inpt ot outpatient treatment programs)?: No Have you ever Experienced Blackouts?: No Have you ever Combined Alcohol with other Downers within the last 90 days?: No Have you ever Combined Alcohol with any other Substance of Abuse during the last 90 days?: No Result: 0
[2024-12-29 09:43] LABS: Abs Immature Grans 0.06 10^3/uL (0.0-0.06); Absolute Basophil Count 0.07 10^3/uL (0.0-0.2); Absolute Eosinophil Count 0.13 10^3/uL (0.0-0.7); Absolute Lymphocyte Count 2.13 10^3/uL (1.2-3.4); Absolute Monocyte Count 0.54 10^3/uL (0.1-0.8); Absolute Neutrophil Count 4.26 10^3/uL (1.2-6.7); Eosinophils % 1.8 %; HCT 47.2 % (40.0-50.0); HGB 16.3 g/dL (13.5-17.5); Immature Grans % 0.8 %; Lymphocytes % 29.6 %; MCHC 34.5 % (32.0-36.0); MCV 90 fL (80-95); MPV 9.5 fL (8.0-11.0); Monocytes % 7.5 %; Neutrophils % 59.3 %; Platelet Count 209 10^3/uL (130-400); RBC 5.26 10^6/uL (4.36-5.78); RDW 12.9 % (11.8-14.1); RDW-SD 42.7 fL; WBC 7.19 10^3/uL (4.4-10.8)
[2024-12-29] MEDS: Aspirin 81 MG CHEW 324 MG CH (09:55)
[2024-12-29 10:06] LABS: D-Dimer 452 ng/mlFEU (<500)
[2024-12-29 10:07] LABS: ALT 52 U/L (16-63); AST 26 U/L (15-37); Albumin 3.9 g/dL (3.4-5.0); Alkaline Phosphatase 66 U/L (46-116); Anion Gap 5.2 mmol/L (3-11); BUN 16 mg/dL (7-18); Bilirubin, Total 0.7 mg/dL (0.2-1.0); CO2 30.8 mmol/L (21.0-32.0); CREATININE 1.1 mg/dL (0.70-1.30); Calcium 8.8 mg/dL (8.5-10.1); Chloride 105 mmol/L (98-107); Estimated GFR 82.29 (mL/min/1.73m2); Glucose 133 mg/dL (74-106); Lipase 58 U/L (<78); Magnesium 1.7 mg/dL (1.8-2.4); NT-proBNP 10 pg/mL (<300); Potassium 3.9 mmol/L (3.5-5.1); Sodium 141 mmol/L (136-145); Total Protein 7.3 g/dL (6.4-8.2); Troponin I 4 ng/L (<or=76)
[2024-12-29] MEDS: Magnesium Oxide 400 MG TAB PO (10:32)
[2024-12-29 10:49] LABS: Troponin I 7 ng/L (<or=76)
== END 2024-12-29 11:41 | disposition home or self-care (01) ==
PROVIDERS: Emergency Provider Registered Nurse Emergency; PCP Physician Assistant Medical
DX: R07.9 Chest pain, unspecified (principal); R53.1 Weakness; I10 Essential (primary) hypertension; Z79.899 Other long term (current) drug therapy
CPT/HCPCS: 80053; 83690; 93005; 99285; 71045; 83735; 83880; 84484; 85025; 85379; 93010; 99284

== ENCOUNTER 2025-01-05 11:36 | Outpatient (CLI) | payer OTHER, SELFPAY ==
[2025-01-10 04:15] LABS: Testosterone, Total 786 ng/dL (240-950)
== END 2025-01-05 11:37 | disposition home or self-care (01) ==
LOC: LOS 11:38
PROVIDERS: PCP Physician Assistant Medical; Visit Provider Urology
DX: E29.1 Testicular hypofunction (principal)
CPT/HCPCS: 36415; 84403

== ENCOUNTER 2025-01-06 09:28 | Outpatient (CLI) | payer OTHER, SELFPAY ==
--- NOTE | 2025-01-06 10:30 | DI.US_ITS ---
APPROVED REPORT EXAM: Comprehensive 2D, Doppler, and color-flow Echocardiogram Patient Location: Out-Patient [facility] Complaint Adjuster: Aquiles Ojeda RDCS (AE) Indications: Chest pain, strong family history heart disease Other Information Study Quality: Fair. Technically limited study due to body habitus. Conclusion Normal left ventricular wall thickness and chamber size. Ejection fraction is 60%. Wall motion is n ormal Normal right ventricular size and function Both atria are normal in size There is no structural or hemodynamically significant valvular disease Wall motion Left Ventricle The left ventricle is normal size. Left ventricular systolic function is normal. The left ventricular ejection fraction is within the normal range. There is normal left ventricular wall thickness. There is normal LV segmental wall motion. There is no ventricular septal defect visualized. LVEF is 60%. Right Ventricle The right ventricle is normal size. The right ventricular systolic function is normal. Atria The left atrium size is normal. The right atrium size is normal. Aortic Valve Aortic valve is grossly normal in structure. Aortic valve is trileaflet. There is no aortic valvular stenosis. No aortic regurgitation is present. Mitral Valve The mitral valve is normal in structure. No evidence of mitral valve stenosis. Trace mitral regurgita tion. Tricuspid Valve The tricuspid valve is normal in structure. There is no tricuspid valve stenosis. Trace tricuspid reg urgitation. Pulmonic Valve The pulmonary valve is normal in structure. There is no pulmonic valvular stenosis. There is no pulmo hu valvular regurgitation. Great Vessels The aortic root is normal in size. The ascending aorta is normal in size. Aortic arch is normal in ca liber. IVC is normal in size and collapses >50% with inspiration. Pericardium There is no pericardial effusion. 2D Dimensions IVSD d PLAX 1.03 cm M: 0.6-1.2 Ao Root d 2.66 cm M: 3.1 - 3.7 LVPW d PLAX 1.02 cm M: 0.6 - 1.2 Ao Asc Diam d 2.98 cm M: 2.6 - 3.4 LVID d PLAX 5.26 cm M: 4.2 - 5.8 LVDs 3.63 cm M: 2.5 - 4.0 LV EF Teichholz 58.3 % FS 31.05 % LV EDV (Teich) 133.2 mL LV ESV (Teich) 55.5 mL Stroke Vol Index (Teich) 30.35 M-Mode TAPSE 2.50 cm (M/F) >1.7 Auto EF LV EDV A4C 143.7 mL LV EDV A2C 158.2 mL LV EDV BP 149.0 mL LV ESV A4C 60.9 mL LV ESV A2C 63.6 mL LV ESV BP 61.1 mL LVEF(%) A4C 57.6 % LVEF(%) A2C 59.8 % LVEF(%) BP 59.0 % LV SV A4C 82.8 ml LV SV A2C 94.6 ml LV SV BP 87.9 ml LV CO A4C 7.2 L/min LV CO A2C 8.3 L/min LV CO BP 7.7 L/min HR A4C 86.96 BPM HR A2C 87.39 BPM LV EDV Index (BP) LA Volume LA Length A4C 5.7 cm LA Length A2C 5.1 cm LA Area A4C s 17.81 cm2 LA Area A2C s 16.93 cm2 LA Vol A4C A-L 46.89 mL LA Vol A2C A-L 47.63 mL LA Vol Biplane A-L 50.1 mL LA Vol/BSA A4C A-L LA Vol/BSA A2C A-L LA Vol/BSA BP A-L 19.6 mL/m2 LA Vol A4C MOD 39.6 mL LA Vol A2C MOD 45.5 mL LA Vol BP MOD 44.9 mL RA Volume RA Area A4C 6.7 cm2 RA ESV A4C (A-L) 11.2mL RA Vol/BSA A4C A-L RA Length A4C 3.4 cm RA ESV A4C (MOD) 11.8mL LV Diastology MV E' medial 0.129 (>0.07 m/s) MV E Vmax 0.99 (0.4-1.3 m/s) MV E/E' MED 7.71 (<14) MV A Vmax 0.70 (0.4-1.3 m/s) MV E' lateral 0.157 (>0.1 m/s) E/A Ratio 1.4 MV E/E' LAT 6.32 (<14) MV E' Average 0.143 m/s MV E/E'(average) 6.94 Aortic Valve AoV Vmax 1.66 m/s LVOT Vmax 1.33 m/s AoV Peak Grad 11.0 mmHg LVOT Peak Grad 7.0 mmHg AoV Area (Vmax) 2.44 cm2 LVOT VTI 0.241 m AoV VTI 0.311 m LVOT Mean Grad 4.0 mmHg AoV Mean Prabhjot. 1.18 m/s LVOT SV 73.51 mL AoV Mean Grad 6.3 mmHg LVOT Diam s 1.95 cm AoV Area (VTI) 2.36 cm2 AV Regurg Peak Gr. 10.97 mmHg Velocity Ratio 0.80 Mitral Valve MV DT 160 (160-240 msec) Pulmonary Valve PV Vmax 1.08 (0.5-1.5 m/s) RVOT Vmax 0.80 m/s PV Peak Grad 4.7 mmHg RVOT Peak Gr. 2.6 mmHg PV Mean Prabhjot 0.77 m/s RVOT VTI 0.153 m PV Mean Grad 2.7 mmHg RVOT Mean Gr. 1.6 mmHg Tricuspid Valve TV S' 0.17 m/s
== END 2025-01-06 09:48 ==
LOC: DI 09:28
PROVIDERS: PCP Physician Assistant Medical; Visit Provider Internal Medicine Cardiovascular Disease
DX: R07.89 Other chest pain (principal); Z82.49 Family history of ischemic heart disease and other diseases of the circulatory system
CPT/HCPCS: 93306

== ENCOUNTER 2025-01-30 20:04 | Outpatient (REF) | payer OTHER, SELFPAY | END 2025-01-30 20:05 | disposition home or self-care (01) | LOC: LBN 20:04 | PROVIDERS: PCP Physician Assistant Medical; Visit Provider Nurse Practitioner Family | DX: T14.8XXA Other injury of unspecified body region, initial encounter (principal) | CPT/HCPCS: 87070; 87205 ==

== ENCOUNTER 2025-06-23 18:11 | Outpatient (REF) | payer OTHER, SELFPAY ==
[2025-06-23 20:43] LABS: COMMENT (LAB VIEW ONLY) < 13.00 mg/dL; Microalb ug/mg Crea 120.0 ug/mg Cr
== END 2025-06-23 18:12 | disposition home or self-care (01) ==
LOC: NCHCN 18:11
PROVIDERS: PCP Physician Assistant Medical; Visit Provider Physician Assistant Medical
DX: E11.9 Type 2 diabetes mellitus without complications (principal)
CPT/HCPCS: 82043; 82570

== ENCOUNTER 2025-07-22 01:55 | Outpatient (CLI) | payer OTHER, SELFPAY ==
[2025-07-22 14:15] LABS: HCT 51.3 % (40.0-50.0)
== END 2025-07-22 01:56 | disposition home or self-care (01) ==
LOC: LOS 01:55
PROVIDERS: PCP Physician Assistant Medical; Visit Provider Urology
DX: E29.1 Testicular hypofunction (principal)
CPT/HCPCS: 36415; 84403; 85014

== ENCOUNTER 2025-08-31 01:52 | Outpatient (CLI) | payer OTHER, SELFPAY ==
[2025-08-31 14:47] LABS: HCT 49.0 % (40.0-50.0)
== END 2025-08-31 01:53 | disposition home or self-care (01) ==
LOC: LOS 01:52
PROVIDERS: PCP Physician Assistant Medical; Visit Provider Urology
DX: E29.1 Testicular hypofunction (principal)
CPT/HCPCS: 36415; 84403; 85014